=== PATIENT | female | born 1960 | race Caucasian/White ===

== ENCOUNTER 2025-04-10 10:24 | Observation (INO) | payer MEDICARE, SELFPAY ==
--- NOTE | 2025-04-02 12:04 | EKG12_ITS ---
Test Reason : PREOP Blood Pressure : */* mmHG Vent. Rate : 97 BPM Atrial Rate : 97 BPM P-R Int : 144 ms QRS Dur : 66 ms QT Int : 342 ms P-R-T Axes : 62 6 69 degrees QTcB Int : 434 ms Sinus rhythm with Possible Premature atrial complexes with Aberrant conduction Otherwise normal ECG Confirmed by Lg Buckley ([id number]), medical editor MONA QUIÑONEZ ([id number]) on 04/08/2025 12:52:18 PM Referred By: Be Macias Confirmed By: Lg Buckley
[2025-04-02 13:21] LABS: Absolute Neutrophil Count 4.2 X10^3/uL (2.0-7.7); Basophil# 0.02 X10^3/uL; Basophil% 0.3 % (0-1); Eosinophils% 1.5 % (0-5); Hemoglobin 14.8 g/dL (12.0-15.0); Lymphocyte % 24.5 % (19-41); Mean Corp Hgb Conc 32.2 g/dL (32-36); Mean Corpuscular Hgb 29.3 pg (27.0-32.0); Mean Corpuscular Volume 91.1 fL (81-99); Mean Platelet Vol. 9.3 fl (6.2-12.0); Monocyte% 9.2 % (0-10); NRBC Flagged by Analyzer 0 % (0-5); Neutrophil # 4.15 X10^3/uL (2.7-7.7); Neutrophil % 63.4 % (47-70); Platelet Count 412 K/mm3 (150-450); RBC Distribution Width CV 13.1 % (11.6-14.6); RBC Distribution Width SD 42.6 fl (35.1-43.9); Red Blood Count 5.05 M/mm3 (4.2-5.4); White Blood Count 6.5 K/mm3 (4.4-11.0)
[2025-04-02 13:50] LABS: Magnesium 2.3 mg/dL (1.5-2.2)
[2025-04-02 13:57] LABS: Hepatitis B Surface Antibody Nonreactive
[2025-04-02 14:10] LABS: Anion Gap 13 (5-15); BUN 15 mg/dL (4-19); Calcium,Total 9.6 mg/dL (7.6-11.0); Carbon Dioxide 22.2 mmol/L (21.0-32.0); Chloride 104 mmol/L (98-108); Creatinine, Serum 0.99 mg/dL (0.70-1.20); EST Glomerular Filtration Rate 63 (>60); Glucose 88 mg/dL (70-99); HIV Nonreactive (Nonreactive); Hepatitis C Antibody Nonreactive (Nonreactive); Potassium 5.1 mmol/L (3.3-5.1); Sodium Level 139 mmol/L (133-145)
--- NOTE | 2025-04-02 18:45 | PAT.ANE_ITS ---
Pre-Assessment Diagnosis/Proposed Procedure Planned Operative Procedure(s): ANTERIOR CERVICAL DISC FUSION C3-4 C4-5 C5-6 Anesthesia History Anesthesia History - finance associate: Anesthesia History - finance associate Hx Hospitalization No 04/02/25 08:31 Any Problems With Anesthesia Yes: SLOW TO AWAKEN 04/02/25 08:31 Cholinesterase deficiency No 04/02/25 08:31 You/Your Family Experience No 04/02/25 08:31 fever (hyperthermia) with Relationship Recent Exposure to Contagious Disease Does patient have nerve No 04/02/25 08:31 stimulator Patient instructed to have device shut off --Does patient have Pacemaker or ICD? When Was Last Pacemaker Check QUESTION #4 FULL TEXT: You/Your Family Experience fever (hyperthermia) with Anesthesia Last Oral Intake Last Oral intake: Last Oral Intake NPO since Meds taken in AM with sips of water? Meds patient instructed to take am of surgery PONV PONV - finance associate: PONV - finance associate Female Yes 04/02/25 08:31 HX of Motion Sickness No 04/02/25 08:31 HX of N/V After Surgery No 04/02/25 08:31 Non-Smoker Yes 04/02/25 08:31 Duration of Surgery greater Yes 04/02/25 08:31 than 60 minutes Number of Risk Factors 3 04/02/25 08:31 PONV Score Moderate Risk 04/02/25 08:31 Height & Weight Height & Weight: Anesthesia: Height & Weight Height 5 ft 7 in 01/10/25 09:09 Respiratory Assessment Respiratory Assessment - finance associate: Respiratory Tract Infection Hx - finance associate Hx Respiratory Tract Infection No 04/02/25 08:31 STOP Sleep Apnea STOP Sleep Apnea - finance associate: STOP Sleep Apnea - finance associate Hx Hypertension No 04/02/25 08:31 Hx Sleep Apnea Yes: COMPLEX SLEEP APNEA 04/02/25 08:31 CPAP Yes: JUST TESTED NO MACHINE 04/02/25 08:31 YET BIPAP No 04/02/25 08:31 Do you snore loudly (louder than talking or can be heard Do you often feel tired/ fatigued/ sleepy during daytime? Has anyone observed you stop breathing during sleep? STOP Results Positive 04/02/25 08:31 QUESTION #5 FULL TEXT : Do you snore loudly (louder than talking or can be heard through closed doors)? Tobacco Use History Tobacco Use History - finance associate: Tobacco Use History - finance associate Tobacco Use Smoking Status Former smoker 04/02/25 08:31 Hx Tobacco Use No 04/02/25 08:31 Years Smoking Packs Smoked per Day Smoking Cessation Date was No - quit smoking greater 04/02/25 08:31 within the last 15 years than 15 years ago Hx Smoking Cessation Date 04/30/08 04/02/25 08:31 Hx Smoking Cessation No 04/02/25 08:31 Counseling Hematologic Medial History Hematologic Hx - finance associate: Hematologic Medical Hx - foot orthopedist Hx of Blood Transfusion No 04/02/25 08:31 Hx of Transfusion in last 3 No 04/02/25 08:31 Months Date of Last Transfusion (if within last 3 months) Ever experience any problems No 04/02/25 08:31 with transfusion(s)? Specify any problems Hx of Preganancy in last 3 No 04/02/25 08:31 Months Nurse Filling Out Transfusion DSCHRIBER 04/02/25 08:31 & Questions: Date: 04/02/25 04/02/25 08:31 Time: 08:34 04/02/25 08:31 Patient unable to answer at this time (ie. confused, unrespo /Reproduction History /Reproductive History - finance associate: /Reproductive Hx- finance associate Hx Now No 04/02/25 08:31 Gestational Age (in weeks): EDC: Hx Hx Para Hx Section SAB No 04/02/25 08:31 PFSH Medical History Wears glasses Post-menopausal Bladder disease Restless legs Back pain Migraine headache Syncope History of ulceration Heartburn Former smoker CPAP (continuous positive airway pressure) dependence History of pain when walking History of edema Chest pain Home Medications ?Medication ?Instructions ?Recorded ?Last Taken ?Type fexofenadine 60 mg-pseudoephedrine 1 tab PO Q12H PRN s inus symptoms 01/10/25 Unknown History ER 120 mg tablet,ext.release,12 hr ([facility]-D 12 Hour) multivitamin 1 tab PO QAM 01/10/25 Unknow n History acetaminophen 500 mg tablet 1,500 mg PO Q6H PRN pain 0 04/02/25 Unknown History (Acetaminophen Extra Strength) cyclobenzaprine 10 mg tablet 10 mg PO TID PRN PRN musc le spasm 04/02/25 Unknown History meloxicam 7.5 mg tablet 7.5 mg PO DAILY 04/02/25 Unk nown History Allergy/AdvReac Type Severity Reaction Status Date / Time Penicillins Allergy Rash Verified 04/02/25 13:35 Surgical History Hx of colonoscopy Hx of bladder repair surgery History of lumbar discectomy History of cholecystectomy Social History household members: spouse Smoking Status: Former smoker alcohol intake: current alcohol intake frequency: a few times a week what type of physical activity do you participate in: other details: pickleball 4x week Audit: Pertinent Findings Pertinent Findings EKG Perinent findings: 04/02/2025. Sinus rhythm with possible PAC with aberrant conduction. Otherwise normal EKG. Recommendation Anesthesia Recommendation Anesthesia recommendation: OPTIMIZED for anesthesia
[2025-04-04 05:07] LABS: Hepatitis A AB, Total Negative (Negative)
[2025-04-10] VITALS (19 sets, daily range): BP systolic 120–155; BP diastolic 52–84; PULSE 72–91; RESP 16–18; TEMP 36.1–36.8; O2SAT 93–100; BMI 23.8
--- OUTSIDE RECORDS SUMMARY | 2025-04-10 05:47 | XMS RPT_ITS | CCD ---
Author Organization [facility] [place] Team Providers Care Slot Machine Floor Person Name Role Phone Furness, Sergio T Unavailable Unavailable Furness, Sergio T Unavailable Unavailable Furness, Sergio T Unavailable Unavailable Furness, Sergio T Unavailable Unavailable Furness, Sergio T Unavailable Unavailable Furness, Sergio T Unavailable Unavailable Furness, Sergio T Unavailable Unavailable Furness, Sergio T Unavailable Unavailable Furness, Sergio T Unavailable Unavailable Furness, Sergio T Unavailable Unavailable Furness, Sergio T Unavailable Yosef, Sergio T Primary Care Provider Sergio Navas MD Primary Care Provider [phone] SARA NAVARRETE Referring Unavailable FURNESS, SERGIO T Primary Care Unavailable SARA NAVARRETE Referring Unavailable FURNESS, SERGIO T Primary Care Unavailable SARA NAVARRETE Attending Unavailable FURNESS, SERGIO T Primary Care Unavailable Furness Sergio EASON Primary Care Provider [phone] Sergio Navas MD Unavailable Sergio Navas MD Unavailable Nicola Mark MD Primary Care Provider Nicola Mark MD Primary Care Provider Unavailable Primary Care Provider Sergio Akins MD Unavailable Nicola Mark MD Primary Care Provider Nicola Mark MD Primary Care Provider Luisa MEDICAL RECEPTION SPECIALIST-PACKAGING SALES CONSULTANT, Sunitha D Unavailable NICOLA MARK Primary Care Unavailable NICOLA MARK Referring Unavailable NICOLA MARK Primary Care Unavailable YEATER, NICOLA M Referring Unavailable YEATER, NICOLA M Primary Care Unavailable Yeater Nicola EASON Primary Care Provider Luisa MEDICAL RECEPTION SPECIALIST-PACKAGING SALES CONSULTANT, Sunitha D Unavailable LUISA, SUNITHA D Referring Unavailable YEATER, NICOLA M Primary Care Unavailable LUISA, SUNITHA D Attending Unavailable LUISA, SUNITHA D Referring Unavailable YEATER, NICOLA M Primary Care Unavailable LUISA, SUNITHA D Attending Unavailable YEATER, NICOLA M Referring Unavailable LUISA, SUNITHA D Attending Unavailable YEATER, NICOLA M Primary Care Unavailable YEATER, NICOLA M Referring Unavailable LUISA, SUNITHA D Attending Unavailable YEATER, NICOLA M Primary Care Unavailable YEATER, NICOLA M Referring Unavailable YEATER, NICOLA M Primary Care Unavailable YVES PAYAN Attending Unavailable YEATER, NICOLA M Referring Unavailable YEATER, NICOLA M Primary Care Unavailable NICKOLAS CHOE Attending Unavailable YEATER, NICOLA M Referring Unavailable YEATER, NICOLA M Primary Care Unavailable YEATER, NICOLA M Referring Unavailable YEATER, NICOLA M Primary Care Unavailable YEATER, NICOLA M Primary Care Unavailable JASON BONILLA Attending Unavailable JASON BONILLA Referring Unavailable YEATER, NICOLA M Primary Care Unavailable ARGENIS OTOOLE Attending Unavailable YEATER, NICOLA M Referring Unavailable YEATER, NICOLA M Primary Care Unavailable TOÑITONICKOLAS Referring Unavailable YEATER, NICOLA M Primary Care Unavailable YEATER, NICOLA M Referring Unavailable YEATER, NICOLA M Primary Care Unavailable YEATER, NICOLA M Referring Unavailable YEATER, NICOLA M Primary Care Unavailable NICKOLAS CHOE Attending Unavailable YEATER, NICOLA M Primary Care Unavailable LUIS ANDRADE Attending Unavailable TOÑITO, NICKOLAS M Referring Unavailable YEATER, NICOLA M Primary Care Unavailable NICKOLAS CHOE Attending Unavailable YEATER, NICOLA M Primary Care Unavailable YEATER, NICOLA M Referring Unavailable YEATER, NICOLA M Primary Care Unavailable Gilberto EASON, Dr. Lr Attending Provider Dr. Benjamin Lombardi MD Attending Provider Nathalie EASON, Dr. Nicola Natarajan Primary Care Provider Dr. Nicola Mark MD Referring Provider ANTONI MARKA M Attending Unavailable YEATER, NICOLA M Primary Care Unavailable YEATER, NICOLA M Attending Unavailable YEATER, NICOLA M Primary Care Unavailable YEATER, NICOLA M Attending Unavailable YEATER, NICOLA M Primary Care Unavailable YEATER, NICOLA M Attending Unavailable YEATER, NICOLA M Primary Care Unavailable Sergio Navas MD Unavailable Macias, Be Attending Unavailable Nathalie, Nicola M Referring Unavailable Yejorge, Nicola M Primary Care Unavailable Macias, Be Attending Unavailable Yeater, Nicola M Primary Care Unavailable Macias, Be Referring Unavailable Lg Buckley Attending Unavailable Macias, Be Referring Unavailable Macias, Be Attending Unavailable Yeater, Nicola M Primary Care Unavailable Benjamin Lombardi Attending Unavailable Allergies Allergy Classification Reported Allergen(s) Allergy Type Date of Onset Reaction(s) Facility Penicillins (antibiotic) (2 sources) Penicillins; Translations: [Penicillins] Drug [facility] Work Phone: (1 source) buPROPion; Translations: [Wellbutrin XL] Drug Allergy [facility] Repository (20 sources) Penicillins; Translations: [penicillins] Propensity to adverse reactions to drug (disorder) 1 Hives, Rash [facility] Repository (1 source) No Known Medication Allergies; Translations: [No Known Medication Allergies] Propensity to adverse reactions to drug (disorder) [facility] Repository (20 sources) buPROPion; Translations: [BUPROPION] Drug Allergy [facility] Medications Current Medications Medication Drug Class(es) Dates Sig (Normalized) Sig (Original) acetaminophen 500 mg oral tablet (5 sources) Start: 04-02-2025 take 3 tablets by mouth every six hours as needed for pain Acetaminophen (Acetaminophen Extra Strength) 500 mg tablet Active 1500 mg PO EVERY 6 HOURS as needed for pain April 02, 2025 12:00am Start: 07-21-2021 take 2 tablets by mo ut every six hours as needed acetaminophen (TYLENOL EXTRA STRENGTH) 500 mg tablet Take 2 tablets by mouth every 6 hours as needed for pain. 30 tablet 0 07/21/2021 Active Comment on above: Take 2 tablets by mo uth every 6 hours as needed for pain. azelastine hydrochloride 0.137 mg/actuat metered dose nasal spray (9 sources) Histamine-1 Receptor Antagonist Start: End: take 1 spray(s) nasal route twice daily azelastine (Astelin) 137 mcg (0.1 %) nasal spray Indications: Nasal congestion Administer 1 spray into each nostril 2 times a day. Use in each nostril as directed 30 mL 12 12/27/2024 12/27/2025 Active Start: 12-27-2024 End: 12-27-2025 azelastine 0.1 % Solution na lisa spray 1 spray Twice daily. 12/27/2024 12/27/2025 Active cyclobenzaprine hydrochloride 10 mg oral tablet (2 sources) Muscle Relaxant Start: 01-11-2025 take 1 tablet by mouth three times daily as needed for muscle spasms Cyclobenzaprine 10 mg tablet Active 10 mg PO 3 TIMES DAILY NEEDED as needed for muscle spasm April 02, 2025 12:00am 12 hr fexofenadine hydrochloride 60 mg / pseudoephedrine hydrochloride 120 mg extended release oral tablet (20 sources) alpha-Adrenergic Agonist, Histamine-1 Receptor Antagonist Start: 01-10-2025 take 1 tablet by mouth every twelve hours as needed Fexofenadine-Pseudoe phedrine (Leelee-D 12 Hour) 60-120 mg tablet extended release 12 hr Active 1 {tbl} PO Q12H as needed for sinus symptoms January 10, 2025 1:00am Start: 12-01-2016 take 1 tablet by [place] th once fexofenadine-pseudoephedrine (LEELEE D) 60-120 mg per tablet Take 1 tablet by mouth. 0 12/01/2016 Active take 1 tablet by [place] th once fexofenadine-pseudoephedrine (Leelee-D 24) 180-240 mg 24 hr tablet Take 1 tablet by mouth if needed for allergies. Do not crush, chew, or split. Active take 180-240 mg by mouth every twenty-four hours fexofenadine-pseudoephedrine 180-240 MG Tab SR 24 HR Take 1 tablet by mouth. Active Comment on above: Take 1 tablet by [place] th. meloxicam 7.5 mg oral tablet (1 source) Nonsteroidal Anti-inflammatory Drug Start: 04-02-20 take 1 tablet by mouth once daily Meloxicam 7.5 mg tablet Active 7.5 mg PO DAILY April 02, 2025 12:00am Multivitamin tablet (1 source) Start: 01-11-20 Multivitamin tablet Active 1 {tbl} PO EVERY MORNING January 10, 2025 1:00am valACYclovir 1000 mg oral tablet (4 sources) Herpesvirus Nucleoside Analog DNA Polymerase Inhibitor, Herpes Simplex Virus Nucleoside Analog DNA Polymerase Inhibitor, Herpes Zoster Virus Nucleoside Analog DNA Polymerase Inhibitor Start: 05-26-20 End: 05-26-20 take 2 tablets by mouth once daily valACYclovir (VALTREX) 1 gram Indications: Oral herpes TAKE 2 TABLETS BY MOUTH ONCE DAILY AND THEN TAKE 2 TABLETS BY MOUTH 12 HOURS AFTER INITIAL DOSE 30 tablet 2 05/26/2021 05/26/2022 Active Comment on above: TAKE 2 TABLETS BY MO UTH ONCE DAILY AND THEN TAKE 2 TABLETS BY MOUTH 12 HOURS AFTER INITIAL DOSE 24 hr venlafaxine 75 mg extended release oral capsule (17 sources) Serotonin and Norepinephrine Reuptake Inhibitor Start: 06-19-20 End: 09-25-20 take 1 capsule by mouth once daily venlafaxine XR (Effexor-XR) 37.5 mg 24 hr capsule Indications: Sweating abnormality Take 1 capsule (37.5 mg) by mouth once daily. Do not crush or chew. 14 capsule 06/19/2024 09/25/2024 Discontinued (Med List Cleanup) Start: 06-19-2024 End: 09-25-2024 take 1 capsule by mouth once daily at mealtime venlafaxine XR (Effexor-XR) 75 mg 24 hr capsule Indications: Sweating abnormality Take 1 capsule (75 mg) by mouth once daily. Take with food. 14 capsule 06/19/2024 09/25/2024 Discontinued (Med List Cleanup) Start: 08-12-2023 End: 11-11-2024 take 1 capsule by mouth once daily venlafaxine XR (Effexor-XR) 150 mg 24 hr capsule Take 1 capsule (150 mg) by mouth once daily. 08/19/2023 06/19/2024 Discontinued (Med List Cleanup) Start: 03-08-2023 End: 04-10-2023 take 1 capsule by mouth once daily venlafaxine ER (EFFEXOR XR) 150 mg 24 hr capsule Indications: Hot flashes, menopausal Take 1 capsule by mouth once daily. 30 capsule 0 04/11/2023 Active Start: 05-26-2021 take 1 capsule by [facility] once daily venlafaxine ER (EFFEXOR XR) 150 mg 24 hr capsule Indications: Hot flashes, menopausal Take 1 capsule by mouth once daily. 90 capsule 3 05/26/2021 Active Comment on above: Take 1 capsule by [facility] once daily. Completed/Discontinued Medications Medication Drug Class(es) Dates Sig (Normalized) Sig (Original) aluminum hydroxide 40 mg/ml / magnesium hydroxide 40 mg/ml / simethicone 4 mg/ml oral suspension (1 source) Start: 10-09-2024 End: 10-09-2024 take 30 mL by mouth once 30 mL, oral, Once, On Tue10/09/24 at 1735, For 1 dose cholecalciferol 0.125 mg chewable tablet (20 sources) Vitamin D Start: 05-29-2021 Vitamin D3 125 MCG (5000 UT) Oral Tablet Chewable Quantity: 0 Refills: 0 Ordered: 29-May-2021 Sergio Navas MD Start : 29-May-2021 Active Start: 11-13-2013 take 1 capsule by [facility] once daily, then take 1 capsule by mouth once daily Cholecalciferol, Vitamin D3, 2,000 unit cap Indications: Symptomatic states associated with artificial menopause Take 1 capsule by mouth once daily. one po daily 90 capsule 4 11/13/2013 [facility] cholecalciferol (Vitamin D3) 5,000 Units tablet Take 1 tablet (5,000 Units) by mouth once daily. Active Comment on above: Take 1 capsule by [facility] once daily. one po daily CYANOCOBALAMIN, VITAMIN B-12, (VITAMIN B-12 ORAL) (5 sources) CYANOCOBALAMIN, VITAMIN B-12, (VITAMIN B-12 ORAL) Take by mouth. 0 Active Comment on above: Take by mouth. 1 ml erenumab-aooe 140 mg/ml auto-injector (4 sources) Start: 1 End: 3 inject 1 mL by subcutaneous injection once erenumab (Aimovig Autoinjector) 140 mg/mL injection Inject 1 mL (140 mg) under the skin every 28 (twenty-eight) days. 0 05/29/2021 09/16/2023 Discontinued (Therapy completed) Estradiol / Estriol (4 sources) Estrogen Start: 1 End: 3 estradiol 0.01% estriol 0.01% topical cream (CPD) Apply 0.5g (2 clicks) vaginally and 0.5g (2 clicks) around the vaginal opening 3 times weekly. 33 g 3 10/16/2021 08/19/2023 Discontinued Start: 10-16-2021 estradiol 0.01 % estriol 0.01% topical cream (CPD) Apply 0.5g (2 clicks) vaginally and 0.5g (2 clicks) around the vaginal opening 3 times weekly. 33 g 3 10/16/2021 Active Start: 06-30-2021 End: 08-19-2023 estradiol 0.01% estriol 0.01 % topical cream (CPD) Insert 0.5g (2 clicks) vaginally every night at bedtime for two weeks, then twice weekly thereafter. 30 g 3 06/30/2021 08/19/2023 Discontinued Start: 06-30-2021 estradiol 0.01 % estriol 0.01% topical cream (CPD) Insert 0.5g (2 clicks) vaginally every night at bedtime for two weeks, then twice weekly thereafter. 30 g 3 06/30/2021 Active Comment on above: Insert 0.5g (2 click s) vaginally every night at bedtime for two weeks, then twice weekly thereafter. Apply 0.5g (2 clicks ) vaginally and 0.5g (2 clicks) around the vaginal opening 3 times weekly. estrogens, conjugated (half-way) 0.625 mg/ml vaginal cream (2 sources) Estrogen Start: 1 End: 3 conjugated estrogens (PREMARIN) vaginal cream Indications: atrophic vaginitis associated with menopause Use 1 g vaginally two times a week. Use 1g vaginally every night for two weeks and then twice weekly after that 30 g 2 06/26/2021 08/19/2023 Discontinued Comment on above: Use 1 g vaginally tw o times a week. Use 1g vaginally every night for two weeks and then twice weekly after that fluticasone propionate 0.05 mg/actuat metered dose nasal spray (4 sources) Corticosteroid Start: End: 3 take 1 spray(s) nasal route twice daily fluticasone (Flonase) 50 mcg/actuation nasal spray Administer 1 spray into each nostril 2 times a day. 0 11/26/2020 09/16/2023 Discontinued (Therapy completed) Start: 11-26-2020 take 1 spray(s) nasa l route twice daily Fluticasone Propionate 50 MCG/ACT Nasal Suspension Inhale 1 spray in each nostril 2 times daily until directed to stop Quantity: 16 Refills: 0 Ordered: 26-Nov-2020 DO Start : 26-Nov-2020 Active gabapentin 300 mg oral capsule (9 sources) Anti-epileptic Agent Start: 10-02-2024 End: 12-27-2024 take 1 capsule by mouth three times daily gabapentin (Neurontin) 300 mg capsule Indications: Cervical radiculopathy Take 1 capsule (300 mg) by mouth 3 times a day. 90 capsule 2 10/02/2024 12/27/2024 Discontinued (Med List Cleanup) ibuprofen 600 mg oral tablet (20 sources) Nonsteroidal Anti-inflammatory Drug Start: 07-21-2021 take 1 tablet by mouth every six hours as needed ibuprofen (MOTRIN) 600 mg tablet Take 1 tablet by mouth every 6 hours as needed for pain. 30 tablet 0 07/21/2021 Active take 2 tablets by mo [facility] every six hours as needed ibuprofen 200 mg tablet Take 2 tablets (400 mg) by mouth every 6 hours if needed for mild pain (1 - 3). Dual action Active Comment on above: Take 1 tablet by [place] every 6 hours as needed for pain. iohexol (OMNIPaque) 300 mg iodine/mL solution 3 mL (1 source) Start: 11-16-2024 End: 11-16-2024 3 mL, miscellaneous, Once in OR, Starting on Tue11/16/24 at 1430, For 1 dose, Intraprocedure 10 ml lidocaine hydrochloride 20 mg/ml injection (2 sources) Antiarrhythmic, Amide Local Anesthetic Start: 11-16-2024 End: 11-16-2024 120 mg (6 mL), infiltration, Once, On Tue11/16/24 at 1445, For 1 dose, Intraprocedure Start: 10-09-2024 End: 10-09-2024 take 15 mL by mouth once 15 mL, oral, Once, On Tue at 1735, For 1 dose magnesium chloride 535 mg delayed release oral tablet (14 sources) End: 04-08-2025 magnesium chloride (MagDelay) 64 mg EC tablet 1 tablet (64 mg) once daily. 04/08/2025 Discontinued (Med List Cleanup) methylPREDNISolone (4 sources) Corticosteroid Start: 12-10-2024 End: 12-27-2024 methylPREDNISolone (Medrol Dospak) 4 mg tablets Indications: Foraminal stenosis of cervical region , Cervical radiculopathy Follow schedule on package instructions 21 tablet 12/10/2024 12/27/2024 Discontinued (Med List Cleanup) Start: 12-10-2024 methylPREDNISo lone (Medrol Dospak) 4 mg tablets Indications: Foraminal stenosis of cervical region , Cervical radiculopathy Follow schedule on package instructions 21 tablet 12/10/2024 Active Start: 11-16-2024 End: 11-16-2024 As needed, Starting on Tue at 1341, Intraprocedure naproxen sodium 220 mg oral capsule (5 sources) Nonsteroidal Anti-inflammatory Drug naproxen sodium (ALEVE) 220 mg cap Take by mouth. 0 Active Comment on above: Take by mouth. SUMAtriptan 100 mg oral tablet (3 sources) Serotonin-1b and Serotonin-1d Receptor Agonist Start: 08-01-2018 End: 08-19-2023 SUMAtriptan (IMITREX) 100 mg tablet Take 1 tab at migraine onset. May repeat once in 2 hours if needed. Give max allowed per insurance. 27 tablet 3 08/01/2018 08/19/2023 Discontinued Comment on above: Take 1 tab at migrai ne onset. May repeat once in 2 hours if needed. Give max allowed per insurance. vitamin b12 3 mg sublingual tablet (20 sources) Vitamin B12 Start: 05-29-2021 Vitamin B12 3000 MCG Sublingual Tablet Sublingual Quantity: 0 Refills: 0 Ordered: 29-May-2021 Sergio Navas MD Start : 29-May-2021 Active End: 04-08-2025 take 1 tablet by mouth once daily cyanocobalamin (Vitamin B-12) 100 mcg tablet Take 1 tablet (100 mcg) by mouth once daily. 04/08/2025 Discontinued (Med List Cleanup) ZOLMitriptan 2.5 mg oral tablet (5 sources) Serotonin-1b and Serotonin-1d Receptor Agonist Start: 02-20-2020 ZOLMitriptan (ZOMIG) 2.5 mg tablet Take 1 tab at migraine onset. May repeat once in 2 hours if needed. Give max allowed per insurance. 27 tablet 3 02/20/2020 Active Comment on above: Take 1 tab at migrai ne onset. May repeat once in 2 hours if needed. Give max allowed per insurance. Problems Active Problems Problem Classification Problem Date Documented Date Episodic/Chronic Adjustment disorders (1 source) Reactive depression (situational); Translations: [Adjustment disorder with depressed mood] 08-19-2023 Chronic Administrative/social admission (5 sources) Administrative reason for encounter; Translations: [Encounter for other administrative examinations] Onset: 03-07-2025 03-07-2025 Episodic Disorders of lipid metabolism (8 sources) Hyperlipidemia; Translations: [Hyperlipidemia, unspecified] Onset: 04-08-2025 11-19-2013 Chronic Headache; including migraine (20 sources) Migraine; Translations: [Migraine, unspecified, without mention of intractable migraine without mention of status migrainosus] Onset: 05-28-2016 Resolved: 01-19-2024 11-19-2013 Chronic Headache; including migraine (4 sources) Headache; including migraine; Translations: [Headache, unspecified] Onset: 03-02-2025 Malaise and fatigue (11 sources) Fatigue; Translations: [Other fatigue] Onset: 03-02-2025 09-16-2023 Episodic Menopausal disorders (2 sources) Menopausal flushing; Translations: [Menopausal and female climacteric states] Chronic Menopausal disorders (6 sources) Postmenopausal state; Translations: [Hormone replacement therapy] 11-19-2013 Episodic Miscellaneous mental health disorders (20 sources) Lack or loss of sexual desire; Translations: [Hypoactive sexual desire disorder] Onset: 09-07-2023 Resolved: 01-19-2024 11-19-2013 Chronic Other acquired deformities (2 sources) Stenosis of intervertebral foramina 12-10-2024 Episodic Other acquired deformities (2 sources) Spondylolisthesis; Translations: [Spondylolisthesis, cervical region] 01-10-2025 Episodic Other lower respiratory disease (2 sources) Hypoxia 01-03-2025 Episodic Other lower respiratory disease (8 sources) Snoring; Translations: [Snoring] Onset: 03-02-2025 01-03-2025 Episodic Other lower respiratory disease (2 sources) Snoring; Translations: [Snoring] Onset: 03-02-2025 Episodic Other nutritional; endocrine; and metabolic disorders (5 sources) Weight gain; Translations: [Abnormal weight gain] 11-19-2013 Episodic Other screening for suspected conditions (not mental disorders or infectious disease) (20 sources) Patient encounter status; Translations: [Special screening for malignant neoplasms of colon] Onset: 11-12-2013 11-12-2013 Episodic Residual codes; unclassified (20 sources) Obstructive sleep apnea syndrome; Translations: [Obstructive sleep apnea (adult) (pediatric)] Onset: 01-19-2024 09-16-2023 Chronic Residual codes; unclassified (8 sources) Hypersomnia; Translations: [Hypersomnia, unspecified] Onset: 03-02-2025 01-03-2025 Chronic Residual codes; unclassified (4 sources) Hypoxia; Translations: [Idiopathic sleep related nonobstructive alveolar hypoventilation] 01-03-2025 Chronic Residual codes; unclassified (4 sources) Unrefreshed by sleep; Translations: [Other sleep disorders] 01-03-2025 Chronic Residual codes; unclassified (6 sources) Obstructive sleep apnea (adult) (pediatric); Translations: [Obstructive sleep apnea (adult) (pediatric)] Onset: 01-19-2024 Chronic Residual codes; unclassified (4 sources) Idiopathic sleep related nonobstructive alveolar hypoventilation; Translations: [Idiopathic sleep related nonobstructive alveolar hypoventilation] Onset: 03-02-2025 Chronic Residual codes; unclassified (2 sources) Hypersomnia, unspecified; Translations: [Hypersomnia, unspecified] Onset: 03-02-2025 Chronic Residual codes; unclassified (4 sources) Other sleep disorders; Translations: [Other sleep disorders] Onset: 03-02-2025 Chronic Residual codes; unclassified (5 sources) Family history of malignant neoplasm of breast in first degree relative; Translations: [Family history of malignant neoplasm of breast] 11-19-2013 Episodic Residual codes; unclassified (11 sources) Insomnia; Translations: [Insomnia, unspecified] 11-02-2021 Episodic Residual codes; unclassified (1 source) Other specified personal risk factors, not elsewhere classified; Translations: [Encounter for gynecologic examination for high-risk patient covered by Medicare] Onset: 08-23-2023 Episodic Residual codes; unclassified (1 source) Asymptomatic menopausal state; Translations: [Asymptomatic postmenopausal state] Onset: 08-23-2023 Episodic Residual codes; unclassified (2 sources) Unrefreshed by sleep 01-03-2025 Episodic Residual codes; unclassified (4 sources) Insomnia, unspecified; Translations: [Insomnia, unspecified] Onset: 03-02-2025 Episodic Screening and history of mental health and substance abuse codes (5 sources) Tobacco use and exposure - finding; Translations: [Personal history of nicotine dependence] 11-19-2013 Episodic Spondylosis; intervertebral disc disorders; other back problems (17 sources) Arthropathy of cervical spine facet joint; Translations: [Spondylosis without myelopathy or radiculopathy, cervical region] Onset: 10-02-2024 10-02-2024 Chronic Spondylosis; intervertebral disc disorders; other back problems (20 sources) Low back pain; Translations: [Lumbago] Onset: 05-28-2016 Resolved: 01-19-2024 11-19-2013 Episodic Unclassified (1 source) Dense breast tissue; Translations: [Dense breast tissue] Onset: 08-23-2023 Unclassified (2 sources) Patient encounter status 12-27-2024 Past or Other Problems Problem Classification Problem Date Documented Date Episodic/Chronic Complications of surgical procedures or medical care (20 sources) Menopausal symptom; Translations: [Symptomatic postprocedural ovarian failure] Onset: 11-12-19 14 Resolved : 01-19-2011-12-2013 Chronic Diverticulosis and diverticulitis (20 sources) Diverticular disease; Translations: [Diverticulosis of intestine, part unspecified, without perforation or abscess without bleeding] Onset: 09-07-20 23 Resolved : 04-08-2011-19-2013 Chronic Headache; including migraine (20 sources) Chronic daily headache; Translations: [Chronic daily headache] Onset: 05-28-20 16 Resolved : 01-19-20 24 05-28-2016 Episodic Immunizations and screening for infectious disease (3 sources) Requires tetanus and diphtheria vaccination; Translations: [Encounter for immunization] Onset: 06-19-2006-19-2024 Episodic Nonmalignant breast conditions (20 sources) Hypertrophy of breast; Translations: [Hypertrophy of breast] Onset: 02-21-20 Resolved : 01-19-2002-20-2018 Episodic Nonspecific chest pain (3 sources) Chest pain; Translations: [Chest pain, unspecified] Onset: 10-09-2010-09-2024 Episodic Nutritional deficiencies (20 sources) Vitamin D deficiency; Translations: [Vitamin D deficiency, unspecified] Onset: 09-07-20 Resolved : 01-19-2011-20-2013 Chronic Other nervous system disorders (3 sources) Skin sensation disturbance; Translations: [Other disturbances of skin sensation] Onset: 06-19-2006-19-2024 Episodic Other nervous system disorders (2 sources) Other disturbances of skin sensation; Translations: [Other disturbances of skin sensation] Onset: 06-19-20 Episodic Other nutritional; endocrine; and metabolic disorders (20 sources) Abnormal weight gain; Translations: [Abnormal weight gain] Onset: 11-12-19 Resolved : 01-19-2011-12-2013 Episodic Other skin disorders (1 source) Disorder of sweat gland; Translations: [Eccrine sweat disorder, unspecified] 06-19-2024 Episodic Other skin disorders (4 sources) Eccrine sweat disorder, unspecified; Translations: [Eccrine sweat disorder, unspecified] Onset: 06-19-20 Episodic Other upper respiratory disease (2 sources) Nasal congestion; Translations: [Nasal congestion] Onset: 12-27-1912-27-2024 Episodic Other upper respiratory disease (1 source) Nasal congestion; Translations: [Nasal congestion] Onset: 12-27-19 Episodic Prolapse of female genital organs (20 sources) Disorder of rectum; Translations: [Rectocele] Onset: 09-07-20 Resolved : 01-19-2011-19-2013 Chronic Residual codes; unclassified (20 sources) Heterozygous methylenetetrahydrofolate reductase mutation; Translations: [Genetic susceptibility to other disease] Onset: 09-07-20 Resolved : 01-19-2011-23-2013 Episodic Unclassified (17 sources) Onset: 09-16-20 Resolved : 04-08-20 25 09-16-2023 Results Test Name Value Interpretation Reference Range Facility Hepatitis A AB, Totalon 05-2 HEPATITIS A,TOT Negative Normal Negative [facility] Comment on above: Result Comment: Comm ent: The HAV total antibody assay detects both IgG and IgM but does not differentiate between them. A negative result suggests susceptibility to infection. A positive result could be due to vaccination, previously resolved infection or active infection. Testing for HAV IgM should be performed if active HAV infection is suspected. [facility] offers profiles that will automatically reflex positive HAV total antibody results to IgM (e.g., panel #[id number] HAV Antibody w/ Rfx). Performed at: [address] [id number] Writer: Hector Warren PhD, Phone: [phone] Performed By: #### L 3890.6202, L500.2500, L100.0100, BTSPAT, M100.651, L3890.6301, L3890.6006, L3100.0300 ####[facility] [id number] [facility] [place], [address] MRSA/SAID NASAL SCREENon MRSA+SAID SCRN Reason for Exam: Josue juan miguel MRSA MRSA Negative S. AUREUS S. aureus Negative Normal [facility] Comment on above: Performed By: #### L 3890.6202, L500.2500, L100.0100, BTSPAT, M100.651, L3890.6301, L3890.6006, L3100.0300 ####[facility] [id number] [facility] [place], [address] 12 Lead EKGon 04-02-2025 12 Lead EKG [facility] [address] [place] [address] 12 Lead EKG 04/02/25 1209 MR#: [id number] Acct: [id number] Name: CHELSIANTONIA Rep #: [id number] : 1960 64 From: Lg Buckley MD Attending Dr: Dr. Be Macias MD [place]: [place] [facility]: Be Macias MD Date: 04/02/25 [place] [facility] [place] Sex: F C Admitted: Test Reason : PREOP Blood Pressure : */* mmHG Vent. Rate : 97 BPM Atrial Rate : 97 BPM P-R Int : 144 ms QRS Dur : 66 ms QT Int : 342 ms P-R-T Axes : 62 6 69 degrees QTcB Int : 434 ms Sinus rhythm with Possible Premature atrial complexes with Aberrant conduction Otherwise normal ECG Confirmed by Lg Buckley ([id number]), supervising film or videotape editor MONA QUIÑONEZ ([id number]) on 04/08/2025 12:52:18 PM Referred By: Be Macias Confirmed By: Lg Buckley 04/08/25 1252 Date Lg Buckley MD CC: Dr. Be Macias MD; Dr. Nicola Mark MD Signed Normal [facility] Basic Metabolic Profile (BMP )on 04-02-2025 BUN/CRE 15.0 RATIO Normal 10-20 [facility] Comment on above: Performed By: #### L 3890.6202, L500.2500, L100.0100, BTSPAT, M100.651, L3890.6301, L3890.6006, L3100.0300 #### [facility] [address] [place], [address] Calcium [Mass/Vol] 9.6 mg/dL Normal 7.6-11.0 [facility] Comment on above: Performed By: #### L 3890.6202, L500.2500, L100.0100, BTSPAT, M100.651, L3890.6301, L3890.6006, L3100.0300 #### [facility] [address] [place], [address] Chloride [Moles/Vol] 104 mmol/L Normal 98-108 [facility] Comment on above: Performed By: #### L 3890.6202, L500.2500, L100.0100, BTSPAT, M100.651, L3890.6301, L3890.6006, L3100.0300 #### [facility] [address] [place], [address] CO2 [Moles/Vol] 22.2 mmol/L Normal 21.0-32.0 [facility] Comment on above: Performed By: #### L 3890.6202, L500.2500, L100.0100, BTSPAT, M100.651, L3890.6301, L3890.6006, L3100.0300 #### [facility] [address] [place], [address] Creatinine [Mass/Vol] 0.99 mg/dL Normal 0.70-1.20 [facility] Comment on above: Performed By: #### L 3890.6202, L500.2500, L100.0100, BTSPAT, M100.651, L3890.6301, L3890.6006, L3100.0300 #### [facility] [address] [place], [address] GAP 13 Normal 5-15 [facility] Comment on above: Performed By: #### L 3890.6202, L500.2500, L100.0100, BTSPAT, M100.651, L3890.6301, L3890.6006, L3100.0300 #### [facility] [address] [place], [address] GFR/1.73 sq M.predicted among non-blacks MDRD (S/P/Bld) [Vol rate/Area] 63 mL/min/{1.73_m2} Normal >60 [facility] Comment on above: Result Comment: mL/m in/1.73m2 CKD-EPI Creatinine Equation (2020) Performed By: #### L 3890.6202, L500.2500, L100.0100, BTSPAT, M100.651, L3890.6301, L3890.6006, L3100.0300 #### [facility] [address] [place], [address] Glucose [Mass/Vol] 88 mg/dL Normal 70-99 [facility] Comment on above: Performed By: #### L 3890.6202, L500.2500, L100.0100, BTSPAT, M100.651, L3890.6301, L3890.6006, L3100.0300 #### [facility] [address] [place], [address] Potassium [Moles/Vol] 5.1 mmol/L Normal 3.3-5.1 [facility] Comment on above: Performed By: #### L 3890.6202, L500.2500, L100.0100, BTSPAT, M100.651, L3890.6301, L3890.6006, L3100.0300 #### [facility] [address] [place], [address] Sodium [Moles/Vol] 139 mmol/L Normal 133-145 [facility] Comment on above: Performed By: #### L 3890.6202, L500.2500, L100.0100, BTSPAT, M100.651, L3890.6301, L3890.6006, L3100.0300 #### [facility] [address] [place], [address] Urea nitrogen [Mass/Vol] 15 mg/dL Normal 4-19 [facility] Comment on above: Performed By: #### L 3890.6202, L500.2500, L100.0100, BTSPAT, M100.651, L3890.6301, L3890.6006, L3100.0300 #### [facility] [address] [place], [address] CBC W/Diff, Automatedon 05-2 Absolute Lymph 1.60 X10 3/uL Normal 0.83-4.51 [facility] Comment on above: Performed By: #### L 3890.6202, L500.2500, L100.0100, BTSPAT, M100.651, L3890.6301, L3890.6006, L3100.0300 #### [facility] [address] [place], [address] Absolute Neut 4.2 X10 3/uL Normal 2.0-7.7 [facility] Comment on above: Performed By: #### L 3890.6202, L500.2500, L100.0100, BTSPAT, M100.651, L3890.6301, L3890.6006, L3100.0300 #### [facility] [address] [place], [address] Basophils/100 WBC (Bld) 0.3 % Normal 0-1 [facility] Comment on above: Performed By: #### L 3890.6202, L500.2500, L100.0100, BTSPAT, M100.651, L3890.6301, L3890.6006, L3100.0300 #### [facility] [address] [place], [address] Eosinophils/100 WBC (Bld) 1.5 % Normal 0-5 [facility] Comment on above: Performed By: #### L 3890.6202, L500.2500, L100.0100, BTSPAT, M100.651, L3890.6301, L3890.6006, L3100.0300 #### [facility] [address] [place], [address] Erythrocyte distribution width (RBC) [Ratio] 13.1 % Normal 11.6-14.6 [facility] Comment on above: Performed By: #### L 3890.6202, L500.2500, L100.0100, BTSPAT, M100.651, L3890.6301, L3890.6006, L3100.0300 #### [facility] [address] [place], [address] Hematocrit (Bld) [Volume fraction] 46.0 % Normal 37-47 [facility] Comment on above: Performed By: #### L 3890.6202, L500.2500, L100.0100, BTSPAT, M100.651, L3890.6301, L3890.6006, L3100.0300 #### [facility] [address] [place], [address] Hemoglobin (Bld) [Mass/Vol] 14.8 g/dL Normal 12.0-15.0 [facility] Comment on above: Performed By: #### L 3890.6202, L500.2500, L100.0100, BTSPAT, M100.651, L3890.6301, L3890.6006, L3100.0300 #### [facility] [address] [place], [address] IG% 1.100 High 0.0-0.9 [facility] Comment on above: Result Comment: IG% - Immature Granulocytes (promyelocytes, myelocytes and metamyelocytes) > 1% indicates that a LEFT SHIFT is Present. Performed By: #### L 3890.6202, L500.2500, L100.0100, BTSPAT, M100.651, L3890.6301, L3890.6006, L3100.0300 #### [facility] [address] [place], [address] Lymphocytes/100 WBC (Bld) 24.5 % Normal 19-41 [facility] Comment on above: Performed By: #### L 3890.6202, L500.2500, L100.0100, BTSPAT, M100.651, L3890.6301, L3890.6006, L3100.0300 #### [facility] [address] [place], [address] MCH (RBC) [Entitic mass] 29.3 pg Normal 27.0-32.0 [facility] Comment on above: Performed By: #### L 3890.6202, L500.2500, L100.0100, BTSPAT, M100.651, L3890.6301, L3890.6006, L3100.0300 #### [facility] [address] [place], [address] MCHC (RBC) [Mass/Vol] 32.2 g/dL Normal 32-36 [facility] Comment on above: Performed By: #### L 3890.6202, L500.2500, L100.0100, BTSPAT, M100.651, L3890.6301, L3890.6006, L3100.0300 #### [facility] [address] [place], [address] MCV (RBC) [Entitic vol] 91.1 fL Normal 81-99 [facility] Comment on above: Performed By: #### L 3890.6202, L500.2500, L100.0100, BTSPAT, M100.651, L3890.6301, L3890.6006, L3100.0300 #### [facility] [address] [place], [address] Monocytes/100 WBC (Bld) 9.2 % Normal 0-10 [facility] Comment on above: Performed By: #### L 3890.6202, L500.2500, L100.0100, BTSPAT, M100.651, L3890.6301, L3890.6006, L3100.0300 #### [facility] [address] [place], [address] Neutrophils/100 WBC (Bld) 63.4 % Normal 47-70 [facility] Comment on above: Performed By: #### L 3890.6202, L500.2500, L100.0100, BTSPAT, M100.651, L3890.6301, L3890.6006, L3100.0300 #### [facility] [address] [place], [address] Nucleated RBC (Bld) [#/Vol] 0 10*3/uL Normal 0-5 [facility] Comment on above: Performed By: #### L 3890.6202, L500.2500, L100.0100, BTSPAT, M100.651, L3890.6301, L3890.6006, L3100.0300 #### [facility] [address] [place], [address] Platelet mean volume (Bld) [Entitic vol] 9.3 fL Normal 6.2-12.0 [facility] Comment on above: Performed By: #### L 3890.6202, L500.2500, L100.0100, BTSPAT, M100.651, L3890.6301, L3890.6006, L3100.0300 #### [facility] [address] [place], [address] Platelets (Bld) [#/Vol] 412 10*3/uL Normal 150-450 [facility] Comment on above: Performed By: #### L 3890.6202, L500.2500, L100.0100, BTSPAT, M100.651, L3890.6301, L3890.6006, L3100.0300 #### [facility] [address] [place], [address] RBC (Bld) [#/Vol] 5.05 10*6/uL Normal 4.2-5.4 [facility] Comment on above: Performed By: #### L 3890.6202, L500.2500, L100.0100, BTSPAT, M100.651, L3890.6301, L3890.6006, L3100.0300 #### [facility] [address] [place], [place], [address] RDW SD 42.6 fl Normal 35.1-43.9 [facility] Comment on above: Performed By: #### L 3890.6202, L500.2500, L100.0100, BTSPAT, M100.651, L3890.6301, L3890.6006, L3100.0300 #### [facility] [address] [place], [address] WBC (Bld) [#/Vol] 6.5 10*3/uL Normal 4.4-11.0 [facility] Comment on above: Performed By: #### L 3890.6202, L500.2500, L100.0100, BTSPAT, M100.651, L3890.6301, L3890.6006, L3100.0300 #### [facility] [address] [place], [address] HIVon 04-02-2025 HIV Non-Reactive Normal Nonreactive [facility] Comment on above: Result Comment: Non- Reactive Reactive Repeatedly reactive samples must be confirmed according to CDC recommended confirmatory algorithms. The subresults for either HIVAG or AHIV can be used as an aid in the selection of the confirmation algorithm for reactive samples. Send out specimens with Reactive results to [facility] for confirmation. Order the HIV antibody detection and differentiation: [id number] Performed By: #### L 3890.6202, L500.2500, L100.0100, BTSPAT, M100.651, L3890.6301, L3890.6006, L3100.0300 #### [facility] [address] [place], [place], [address] Hepatitis B Surface Antibody on 04-02-2025 HEP B Surf Ab Non-Reactive Normal [facility] Comment on above: Result Comment: <8.5 mIU/mL: Non-Reactive 8.5<= x <11.5 mIU/mL: Indeterminate >=11.5 mIU/mL: Reactive Non Reactive: Inconsistent with immunity less than <10 mIU/mL Reactive: Consistent with immunity greater than or equal to 10 mIU/mL Performed By: #### L 3890.6202, L500.2500, L100.0100, BTSPAT, M100.651, L3890.6301, L3890.6006, L3100.0300 #### [facility] [address] [place], [place], [address] Hepatitis C Antibodyon 04-02 Hepatitis C Ab Non-Reactive Normal Nonreactive [facility] Comment on above: Result Comment: Reac tive: Presumptive evidence of antibodies to HCV. Follow CDC recommendations for supplemental testing. Non-Reactive: Antibodies to HCV were not detected; does not exclude the possibility of exposure to HCV Reactive Results are presumptive evidence of antibodies to HCV. Follow CDC recommendations for supplemental testing. Order confirmation testing: HCV Quant by PCR testing - HCVPCR #[id number] Non Reactive: < 0.8 Equivocal: >/= 0.8 to < 1.0 Reactive: >/= 1.0 The CDC requires that a reactive/equivocal HCV antibody result be sent out for confirmation. HCV Quant by PCR testing. Performed By: #### L 3890.6202, L500.2500, L100.0100, BTSPAT, M100.651, L3890.6301, L3890.6006, L3100.0300 ####[facility] [id number] [place], [place], [address] MR/PAT.ANEon 04-02-2025 MR/PAT.[facility] Medical Records Department [address] [place] [address] PAT - Anesthesia 04/02/25 1845 MR#: [id number] Acct: [id number] Name: NICOLA GAGNON Rep #: [id number] : 1960 64 From: Rj Porras MD PCP: Dr. Nicola Mark MD Status:PRE SDC Y Race: C [place] [facility] [place] Pre-Assessment Diagnosis/Proposed Procedure Planned Operative Procedure(s): ANTERIOR CERVICAL DISC FUSION C3-4 C4-5 C5-6 Anesthesia History Anesthesia History - director furniture: Anesthesia History - director furniture Hx Hospitalization No 04/02/25 08:31 Any Problems With Anesthesia Yes: SLOW TO AWAKEN 04/02/25 08:31 Cholinesterase deficiency No 04/02/25 08:31 You/Your Family Experience No 04/02/25 08:31 fever (hyperthermia) with Relationship Recent Exposure to Contagious Disease Does patient have nerve No 04/02/25 08:31 stimulator Patient instructed to have device shut off --Does patient have Pacemaker or ICD? When Was Last Pacemaker Check QUESTION #4 FULL TEXT: You/Your Family Experience fever (hyperthermia) with Anesthesia Last Oral Intake Last Oral intake: Last Oral Intake NPO since Meds taken in AM with sips of water? Meds patient instructed to take am of surgery PONV PONV - director furniture: PONV - director furniture Female Yes 04/02/25 08:31 HX of Motion Sickness No 04/02/25 08:31 HX of N/V After Surgery No 04/02/25 08:31 Non-Smoker Yes 04/02/25 08:31 Duration of Surgery greater Yes 04/02/25 08:31 than 60 minutes Number of Risk Factors 3 04/02/25 08:31 PONV Score Moderate Risk 04/02/25 08:31 Height Weight Height Weight: Anesthesia: Height Weight Height 5 ft 7 in 01/10/25 09:09 Respiratory Assessment Respiratory Assessment - director furniture: Respiratory Tract Infection Hx - director furniture Hx Respiratory Tract Infection No 04/02/25 08:31 STOP Sleep Apnea STOP Sleep Apnea - director furniture: STOP Sleep Apnea - director furniture Hx Hypertension No 04/02/25 08:31 Hx Sleep Apnea Yes: COMPLEX SLEEP APNEA 04/02/25 08:31 CPAP Yes: JUST TESTED NO MACHINE 04/02/25 08:31 YET BIPAP No 04/02/25 08:31 Do you snore loudly (louder than talking or can be heard Do you often feel tired/ fatigued/ sleepy during daytime? Has anyone observed you stop breathing during sleep? STOP Results Positive 04/02/25 08:31 QUESTION #5 FULL TEXT : Do you snore loudly (louder than talking or can be heard through closed doors)? 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 confused, unrespo /Reproduction History /Reproductive History - director furniture: /Reproductive Hx- director furniture Hx Now No 04/02/25 08:31 Gestational Age (in weeks): EDC: Hx Hx Para Hx Section SAB No 04/02/25 08:31 PFSH Medical History Wears glasses Post-menopausal Bladder disease Restless legs Back pain Migraine headache Syncope History of ulceration Heartburn Former smoker CPAP (continuous positive airway pressure) dependence History of pain when walking History of edema Chest pain Home Medications ???Medication ???Instructions ???Recorded ???Last Taken ???Type fexofenadine 60 mg-pseudoephedrine 1 tab PO Q12H PRN sinus symptoms 01/10/25 Unknown History ER 120 mg tablet,ext.release,12 hr (Leelee-D 12 Hour) multivitamin 1 tab PO QAM 01/10/25 Unknown Hist ory acetaminophen 500 mg tablet 1,500 mg PO Q6H PRN pain 04/02/25 Unknown History (Acetaminophen Extra Strength) cyclobenzaprine 10 mg tablet 10 mg PO TID PRN PRN muscle spasm (more content not included)... Normal [facility] Magnesiumon 04-02-2025 Magnesium [Mass/Vol] 2.3 mg/dL High 1.5-2.2 [facility] Comment on above: Performed By: #### L 501.5200 #### [facility] [address] [place], [address] Orthopedic Visit Reporton Orthopedic Visit Report [facility] [address] [place] [address] [address] [place], [place] [address] OFFICE VISIT Date of Service: 04/02/25 MR#: [id number] Acct: [id number] Name: NICOLA GAGNON Rep #: [id number] : 1960 Provider: Dr. Be Macias MD Age/Sex: 64/F Location: [facility] [place] Status: Signed Intake Vital Signs 01/10/25 09:09 Height 5 ft 7 in Weight: 151 lb 6 oz BMI 23.7 Intake Visit Reasons: cervical spine Chief Complaint: pre-op Allergies Penicillins Allergy (Verified 04/02/25 13:35) Rash Medications ???Medication ???Instructions ???Recorded ???Confirmed ???Type fexofenadine 60 mg-pseudoephedrine 1 tab PO Q12H PRN sinus symptoms 01/10/25 04/02/25 History ER 120 mg tablet,ext.release,12 hr (Leelee-D 12 Hour) multivitamin 1 tab PO QAM 01/10/25 04/02/25 His tory acetaminophen 500 mg tablet 1,500 mg PO Q6H PRN pain 04/02/25 04/02/25 History (Acetaminophen Extra Strength) cyclobenzaprine 10 mg tablet 10 mg PO TID PRN PRN muscle spasm 04/02/25 04/02/25 History meloxicam 7.5 mg tablet 7.5 mg PO DAILY 04/02/25 04/02/25 History Have you fallen in the past year?: No PFSH Medical History Wears glasses Post-menopausal Bladder disease Restless legs Back pain Migraine headache Syncope History of ulceration Heartburn Former smoker CPAP (continuous positive airway pressure) dependence History of pain when walking History of edema Chest pain Surgical History Hx of colonoscopy Hx of bladder repair surgery History of lumbar discectomy History of cholecystectomy Social History household members: spouse Smoking Status: Former smoker alcohol intake: current alcohol intake frequency: a few times a week what type of physical activity do you participate in: other details: pickleball 4x week HPI cervical spine Details: This documentation accurately reflects the service provided and the decisions made by me, Dr. Be Macias MD 04/02/25 9465. Part of today???s visit was documented by Alise SOL, acting as scribe. NICOLA GAGNON is a 64 year old F here today for preop, cervical spine, dos 04/10/25. She continues to have neck pain radiating to both upper extremities, with numbness and weakness in hands. 01/10/25: NICOLA GAGNON is a 64 year old F NEW patient here today for her cervical spine. She has been having neck pain for about 15 years and has significantly gotten worse within the last year. She has pain at the base of her neck that can extend up to the base of her skull with occasional muscular pain in her posterior left shoulder. She does occasionally hear a crunching in her neck. Her neck li does cause her to get headaches almost everyday which has been going on for many years. She does have a hx of migraines but notes that those are different than the headaches she gets. She denies balance issues but does get some dizziness. She gets the dizziness if she stands up too fast or if she stands up too fast from bending over in pickleball. 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 She did have an MRI at of her cervical spine in October. She also had some xrays shortly before she had her MRI done as well. She did do PT in October for 6 weeks that didn't help her and some days made her symptoms worse. She did have an epidural steroid injection on 11/[address] Naveed Andrade at pain management in [place] but it didn't give her any relief. She does get some achy pain in her arms bilaterally. Ortho Exam General General: Yes no acute distress Neurologic: Yes alert and Yes oriented x3 Spine SPINE TESTING CERVICAL THORACIC LUMBAR Musculoskeletal Strength 0=absent - 5=normal Details: Examination the neck shows midline and left paraspinal tenderness in the lower neck region. Neurologic motion of upper extremities shows 5 x 5 power in all muscle groups normal sensations in all dermatomes. Hanna's negative. Romberg's is negative. Gait gait shows no imbalance. Coding Level of Care Code Off vis,est,level 4 Diagnoses Spondylolisthesis of cervical region M43.12 Cervical radiculopathy M54.12 Time Spent (min) 35 Assessment and Plan Assessment and Plan (1) Spondylolisthesis of cervical region: Status: Acute (2) Cervical radiculopathy: Status: Acute Plan Again reviewed previous imaging. X-rays of the cervical spine as well as MRI done in October were reviewed with the patient. These show C5-6 and C6-7 disc height loss, C4-5 spondylolisthesis with dynamic instability on flexion-extension views. Loss of cervical lordosis with angular kyphosis at (more content not included)... Normal [facility] Type AND Screen - [facility] ANGEALon 04-02-2025 ABO and Rh group Nom (Bld) Blood group A Rh(D) positive Normal [facility] Comment on above: Order Comment: Surge ry Date: 04/10/25 Reason for Laboratory Test PREOP [id number] No N N S CERVICAL DISC FUSION Performed By: #### L 3890.6202, L500.2500, L100.0100, BTSPAT, M100.651, L3890.6301, L3890.6006, L3100.0300 #### [facility] [address] [place], [address] SLEEP STUDY (SCANNED)Ordered By: Lryic Cota on 03-02-2025 [facility] SLEEP STUDY PSG (SCANNED)Ord ered By: Lyric Cota on 01-30-2025 Radiology Study observation (narrative) [facility] SLEEP STUDY PSG (SCANNED)Ord ered By: Lyric Cota on 01-29-2025 [facility] Cerv Spine 2 or 3 Viewson Cerv Spine 2 or 3 Views [facility] [address] [place] [address] Cerv Spine 2 or 3 Views MR#: [id number] Acct: [id number] Name: NICOLA GAGNON Rep #: [id number] : 1960 F 64 From: Broderick Billy MD PCP: Status: DEP AMB Study: Cerv Spine 2 or 3 Views Date of Exam: 01/10/25 Exam# [id number] Ordering Dr: Claudia Kelley PROCEDURE: CERV SPINE 2 OR 3 VIEWS REASON FOR EXAM: Neck pain TECHNIQUE: Two (2) lateral views of the cervical spine during flexion and extension. COMPARISON: MRI cervical dated 10/12/2024. Plain films of the cervical spine dated 09/27/2024. FINDINGS: Normal vertebral body heights. No visible fracture. Narrowing of the C5-6 and C6-7 interspaces. Anterolisthesis of C4 on C5. Anterolisthesis measures 0.4 cm during flexion and 0.2 cm during extension. Good range of motion during flexion and extension. Prevertebral soft tissues are unremarkable. RAD/Cerv Spine 2 or 3 Views IMPRESSION: Anterolisthesis of C4 on C5 as documented above. Good range of motion during flexion and extension. Degenerative disc disease at C5-6 and C6-7. Reading Location: [facility] CC: JENNIFER Howard Camera Engineer: Signed Normal [facility] Orthopedic Visit Reporton Orthopedic Visit Report [facility] [address] [place] [address] [address] [place] [address] OFFICE VISIT Date of Service: 01/10/25 MR#: [id number] Acct: [id number] Name: NICOLA GAGNON Rep #: [id number] : 1960 Provider: Dr. Be Macias MD Age/Sex: 64/F Location: [facility] Status: Signed with Addenda ADDENDUM by Dr. Be Macias MD on 03/29/25 at 1520 Assessment and Plan Assessment and Plan (1) Spondylolisthesis of cervical region: Status: Acute (2) Cervical radiculopathy: Status: Acute Orders: Orders Cerv Spine 2 or 3 Views 01/10/25 M54.2 - Cervicalgia Plan I was asked to place this addendum for insurance purposes. Patient has unstable spondylolisthesis at C3-4 C4-5 which at C4-5 measures 4.4 mm on flexion reducing to 2 mm on extension, and at C3-4 there is 3.3 mm spondylolisthesis on flexion reducing to neutral on extension. Patient has done physical therapy in October and we will request patient to provide notes from physical therapy. She says that she quit smoking in 2007. 03/29/25 1520 Date Be Macias MD cc: * Signed Intake Vital Signs 01/10/25 09:09 Height 5 ft 7 in Weight: 151 lb 6 oz BMI 23.7 Intake Visit Reasons: CERVICAL SPINE Accompanied by: Self Is patient in pain?: Yes Pain scale (1-10): 6 Allergies Penicillins Allergy (Verified 01/10/25 09:09) Rash Medications ???Medication ???Instructions ???Recorded ???Confirmed ???Type fexofenadine 60 mg-pseudoephedrine 1 tab PO Q12H PRN 01/10/2501/10 History ER 120 mg tablet,ext.release,12 hr (Leelee-D 12 Hour) multivitamin 1 tab PO QAM 01/10/25 01/10/25 His tory Have you fallen in the past year?: Yes PFSH Surgical History (Updated 01/10/25 @ 09:12 by Denise Bradley) History of lumbar discectomy History of cholecystectomy Social History (Updated 01/10/25 @ 09:13 by Denise Bradley) household members: spouse Smoking Status: Former smoker alcohol intake: current alcohol intake frequency: a few times a week what type of physical activity do you participate in: other details: pickleball 4x week HPI CERVICAL SPINE Details: This documentation accurately reflects the service provided and the decisions made by me, Dr. Be Macias MD 01/10/25 0900. Part of today???s visit was documented by Alise SOL, acting as scribe. NICOLA GAGNON is a 64 year old F NEW patient here today for her cervical spine. She has been having neck pain for about 15 years and has significantly gotten worse within the last year. She has pain at the base of her neck that can extend up to the base of her skull with occasional muscular pain in her posterior left shoulder. She does occasionally hear a crunching in her neck. Her neck li does cause her to get headaches almost everyday which has been going on for many years. She does have a hx of migraines but notes that those are different than the headaches she gets. She denies balance issues but does get some dizziness. She gets the dizziness if she stands up too fast or if she stands up too fast from bending over in pickleball. 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 She did have an MRI at of her cervical spine in October. She also had some xrays shortly before she had her MRI done as well. She did do PT in October for 6 weeks that didn't help her and some days made her symptoms worse. She did have an epidural steroid injection on 11/[address] Naveed Andrade at pain management in [place] but it didn't give her any relief. She does get some achy pain in her arms bilaterally. Ortho Exam General General: Yes no acute distress Neurologic: Yes alert and Yes oriented x3 Spine SPINE TESTING CERVICAL THORACIC LUMBAR Musculoskeletal Strength 0=absent - 5=normal Details: Examination the neck shows midline and left paraspinal tenderness in the lower neck region. Neurologic motion of upper extremities shows 5 x 5 power in all muscle groups normal sensations in all dermatomes. Hanna's negative. Romberg's is negative. Gait gait shows no imbalance. Coding Level of Care Code Off vis,new,level 4 Diagnoses Spondylolisthesis of cervical region M43.12 Cervical radiculopathy M54.12 Time Spent (min) 45 Assessment and Plan Assessment and Plan (1) Spondylolisthesis of cervical region: Status: Acute (2) Cervical radiculopathy: Status: Acute Orders: Orders Cerv Spine 2 or 3 Views Today M54.2 - Cervicalgia Plan X-rays of the cervical spine as well as MRI done in October were reviewed with the patient. These show C5-6 and C6-7 disc height loss, C4-5 spondylolisthesis with dynamic instability on flexion- extension view (more content not included)... Normal [facility] BI TRANSFER OF OUTSIDE FILMS on 01-04-2025 BI TRANSFER OF OUTSIDE FILMS Outside images for comparison or treatment purposes, not interpreted by Radiologists. Normal [facility] Study Interpretation of outs santosh studyon 01-04-2025 Outside images for comparison or treatment purposes, not interpreted by Radiologists. IMAGING Outside images for comparison or treatment purposes, not interpreted by Radiologists. IMAGING BI MAMMO BILATERAL SCREENING TOMOSYNTHESISon 01-02-2025 BI MAMMO BILATERAL SCREENING TOMOSYNTHESIS Interpreted By: Darshan Ashton, STUDY: BI MAMMO BILATERAL SCREENING TOMOSYNTHESIS; 01/02/2025 8:34 am ACCESSION NUMBER(S): [id number] ORDERING CLINICIAN: NICOLA MARK INDICATION: Screening. COMPARISON: Digital mammograms dated 08/23/2023 FINDINGS: CC and MLO 2D digital mammograms and digital breast tomosynthesis images were obtained of the bilateral breasts. 3-D volume images were reconstructed in 4 views at an independent workstation as 1 mm slices through the breasts in both the CC and MLO projections. Density: There are scattered areas of fibroglandular density. No discrete mass or focal asymmetry is identified. No suspicious microcalcifications or foci of architectural distortion are seen. There has been no significant change. This study was interpreted with CAD. IMPRESSION: No mammographic evidence of malignancy. BI-RADS CATEGORY: BI-RADS Category: 1 Negative. Recommendation: Annual Screening. Recommended Date: 1 Year. Laterality: Bilateral. MACRO: None Signed by: Darshan Ashton 01/04/2025 8:15 AM Dictation workstation: [id number] [facility] Epidural Steroid Injectionon 11-16-2024 [facility] Work Phone: Radiology Study observation (narrative) [facility] Work Phone: [place] PAIN MANAGEMENTon 025 [place] PAIN [place]NAGEMENT These images are not reportable by radiology and will not be interpreted by Radiologists. Normal [facility] [place] pain managementon 025 These images are not reportable by radiology and will not be interpreted by Radiologists. [facility] Work Phone: MR CERVICAL SPINE WO IV CONT RASTon 10-12-2024 MR CERVICAL SPINE WO IV CONTRAST Interpreted By: Douglas Esqueda, STUDY: MR CERVICAL SPINE WO IV CONTRAST; 10/12/2024 8:29 am INDICATION: Signs/Symptoms:neck pain, BUE radicular symptoms. ,M54.12 Radiculopathy, cervical region COMPARISON: April 2012. ACCESSION NUMBER(S): [id number] ORDERING CLINICIAN: NICKOLAS CHOE TECHNIQUE: The cervical spine was studied in the sagittal and axial planes utilizing T1 and T2 weighted images. FINDINGS: The craniovertebral junction is normal. The cord is normal in size and signal. The marrow signal is normal. Serial axial images reveal the following: C2/C3 There is normal alignment and vertebral body height. The disc space is normal. There is no evidence of canal or foraminal narrowing. There is no evidence of bulging or herniated disc. C3/C4 Focal narrowing of the left lateral recess and neural foramen due to uncovertebral joint hypertrophy and facet hypertrophy. No measurable canal stenosis C4/C5 Left-sided facet hypertrophy and mild left-sided uncovertebral joint hypertrophy without canal stenosis C5/C6 Marginal osteophyte formation asymmetrical to the right with flattening of the thecal sac and slight deformity of the spinal cord. The central canal measures proximally 6 mm in AP dimension in the midline on axial T2 weighted image 73/112. Interval development of severe stenosis of the right lateral recess and neural foramen. There are discogenic type 2 Modic marrow signal changes at this level. C6/C7 Interval progression of bilateral uncovertebral joint hypertrophy and facet hypertrophy resulting in severe right-sided foraminal narrowing and moderate left-sided foraminal narrowing. C7/T1 There is normal alignment and vertebral body height. The disc space is normal. There is no evidence of canal or foraminal narrowing. There is no evidence of bulging or herniated disc. IMPRESSION: * Progression of cervical spondylosis with canal and foraminal narrowing as described. MACRO: none Signed by: Douglas Esqueda 10/12/2024 10:13 AM Dictation workstation: [id number] [facility] MR Cervical spine WO contras ton 10-12-2024 Interpreted By: Douglas Renae, STUDY: MR CERVICAL SPINE WO IV CONTRAST; 10/12/2024 8:29 am INDICATION: Signs/Symptoms:neck pain, BUE radicular symptoms. ,M54.12 Radiculopathy, cervical region COMPARISON: April 2012. ACCESSION NUMBER(S): [id number] ORDERING CLINICIAN: NICKOLAS CHOE TECHNIQUE: The cervical spine was studied in the sagittal and axial planes utilizing T1 and T2 weighted images. FINDINGS: The craniovertebral junction is normal. The cord is normal in size and signal. The marrow signal is normal. Serial axial images reveal the following: C2/C3 There is normal alignment and vertebral body height. The disc space is normal. There is no evidence of canal or foraminal narrowing. There is no evidence of bulging or herniated disc. C3/C4 Focal narrowing of the left lateral recess and neural foramen due to uncovertebral joint hypertrophy and facet hypertrophy. No measurable canal stenosis C4/C5 Left-sided facet hypertrophy and mild left-sided uncovertebral joint hypertrophy without canal stenosis C5/C6 Marginal osteophyte formation asymmetrical to the right with flattening of the thecal sac and slight deformity of the spinal cord. The central canal measures proximally 6 mm in AP dimension in the midline on axial T2 weighted image 73/112. Interval development of severe stenosis of the right lateral recess and neural foramen. There are discogenic type 2 Modic marrow signal changes at this level. C6/C7 Interval progression of bilateral uncovertebral joint hypertrophy and facet hypertrophy resulting in severe right-sided foraminal narrowing and moderate left-sided foraminal narrowing. C7/T1 There is normal alignment and vertebral body height. The disc space is normal. There is no evidence of canal or foraminal narrowing. There is no evidence of bulging or herniated disc. [facility] Douglas Esqueda MD - 10/12/2024 Interpreted By: Douglas Esqueda, STUDY: MR CERVICAL SPINE WO IV CONTRAST; 10/12/2024 8:29 am INDICATION: Signs/Symptoms:neck pain, BUE radicular symptoms. ,M54.12 Radiculopathy, cervical region COMPARISON: April 2012. ACCESSION NUMBER(S): [id number] ORDERING CLINICIAN: NICKOLAS CHOE TECHNIQUE: The cervical spine was studied in the sagittal and axial planes utilizing T1 and T2 weighted images. FINDINGS: The craniovertebral junction is normal. The cord is normal in size and signal. The marrow signal is normal. Serial axial images reveal the following: C2/C3 There is normal alignment and vertebral body height. The disc space is normal. There is no evidence of canal or foraminal narrowing. There is no evidence of bulging or herniated disc. C3/C4 Focal narrowing of the left lateral recess and neural foramen due to uncovertebral joint hypertrophy and facet hypertrophy. No measurable canal stenosis C4/C5 Left-sided facet hypertrophy and mild left-sided uncovertebral joint hypertrophy without canal stenosis C5/C6 Marginal osteophyte formation asymmetrical to the right with flattening of the thecal sac and slight deformity of the spinal cord. The central canal measures proximally 6 mm in AP dimension in the midline on axial T2 weighted image 73/112. Interval development of severe stenosis of the right lateral recess and neural foramen. There are discogenic type 2 Modic marrow signal changes at this level. C6/C7 Interval progression of bilateral uncovertebral joint hypertrophy and facet hypertrophy resulting in severe right-sided foraminal narrowing and moderate left-sided foraminal narrowing. C7/T1 There is normal alignment and vertebral body height. The disc space is normal. There is no evidence of canal or foraminal narrowing. There is no evidence of bulging or herniated disc. IMPRESSION: * Progression of cervical spondylosis with canal and foraminal narrowing as described. MACRO: none Signed by: Doulgas Esqueda 10/12/2024 10:13 AM Dictation workstation: [id number] [facility] Work Phone: Radiology Study observation (narrative) [facility] Work Phone: MR Cervical spine WO contras tOrdered By: Douglas Esqueda on 10-12-2024 [facility] Work Phone: CBC W Auto Differential pane l (Bld)on 10-09-2024 Basophils (Bld) [#/Vol] 0.02 10*3/uL [facility] Basophils/100 WBC (Bld) 0.3 % 0.0 - 2.0 % [facility] Eosinophils (Bld) [#/Vol] 0.08 10*3/uL [facility] Eosinophils/100 WBC (Bld) 1.4 % 0.0 - 6.0 % [facility] Erythrocyte distribution width (RBC) [Ratio] 12.4 % 11.5 - 14.5 % [facility] Hematocrit (Bld) [Volume fraction] 36.6 % 36.0 - 46.0 % [facility] Hemoglobin (Bld) [Mass/Vol] 11.6 g/dL Low 12.0 - 16.0 g/dL [facility] Immature granulocytes (Bld) [#/Vol] 0.04 10*3/uL [facility] Immature granulocytes/100 WBC (Bld) 0.7 % 0.0 - 0.9 % [facility] Comment on above: Immature Granulocyte Count (IG) includes promyelocytes, myelocytes and metamyelocytes but does not include bands. Percent differential counts (%) should be interpreted in the context of the absolute cell counts (cells/UL). Interpretation and review of laboratory results Abnormal [facility] Lymphocytes (Bld) [#/Vol] 1.16 10*3/uL Low [facility] Lymphocytes/100 WBC (Bld) 20.1 % 13.0 - 44.0 % [facility] MCH (RBC) [Entitic mass] 29.1 pg 26.0 - 34.0 pg [facility] MCHC (RBC) [Mass/Vol] 31.7 g/dL Low 32.0 - 36.0 g/dL [facility] MCV (RBC) [Entitic vol] 92 fL 80 - 100 fL [facility] Monocytes (Bld) [#/Vol] 0.47 10*3/uL [facility] Monocytes/100 WBC (Bld) 8.1 % 2.0 - 10.0 % [facility] Neutrophils (Bld) [#/Vol] 4.01 10*3/uL [facility] Comment on above: Percent differential counts (%) should be interpreted in the context of the absolute cell counts (cells/uL). Neutrophils/100 WBC (Bld) 69.4 % 40.0 - 80.0 % [facility] Nucleated RBC/100 WBC (Bld) [Ratio] 0 % [facility] Platelets (Bld) [#/Vol] 276 10*3/uL [facility] RBC (Bld) [#/Vol] 3.98 10*6/uL Low [facility] WBC (Bld) [#/Vol] 5.8 10*3/uL [facility] Basophils (Bld) [#/Vol] 0.02 x10*3/uL Normal 0.00-0.10 [facility] Comment on above: Performed By: #### 5 7021-8 #### STEFANY BRENNER ([id number]) [facility] ([facility]) [address] [place] [address] Basophils/100 WBC (Bld) 0.3 % Normal 0.0-2.0 [facility] Comment on above: Performed By: #### 5 7021-8 #### STEFANY BRENNER ([id number]) [facility] ([facility]) [address] [place] [address] 65873 Eosinophils (Bld) [#/Vol] 0.08 x10*3/uL Normal 0.00-0.70 [facility] Comment on above: Performed By: #### 5 7021-8 #### STEFANY BRENNER ([id number]) [facility] ([facility]) [address] [place] [address] 68743 Eosinophils/100 WBC (Bld) 1.4 % Normal 0.0-6.0 [facility] Comment on above: Performed By: #### 5 7021-8 #### STEFANY BRENNER ([id number]) [facility] ([facility]) [address] [place] [address]8923 Erythrocyte distribution width (RBC) [Ratio] 12.4 % Normal 11.5-14.5 [facility] Comment on above: Performed By: #### 5 7021-8 #### STEFANY BRENNER ([id number]) [facility] ([facility]) [address] [place] [address] 87690 Hematocrit (Bld) [Volume fraction] 36.6 % Normal 36.0-46.0 [facility] Comment on above: Performed By: #### 5 7021-8 #### STEFANY BRENNER ([id number]) [facility] ([facility]) [address] [place] [address] 01640 Hemoglobin (Bld) [Mass/Vol] 11.6 g/dL Low 12.0-16.0 [facility] Comment on above: Performed By: #### 5 7021-8 #### STEFANY BRENNER ([id number]) [facility] ([facility]) [address] [place] [address] 18792 Immature granulocytes (Bld) [#/Vol] 0.04 x10*3/uL Normal 0.00-0.70 [facility] Comment on above: Performed By: #### 5 7021-8 #### STEFANY BRENNER ([id number]) [facility] ([facility]) [address] [place] [address]482 Immature granulocytes/100 WBC (Bld) 0.7 % Normal 0.0-0.9 [facility] Comment on above: Result Comment: Yoko ture Granulocyte Count (IG) includes promyelocytes, myelocytes and metamyelocytes but does not include bands. Percent differential counts (%) should be interpreted in the context of the absolute cell counts (cells/UL). Performed By: #### 5 7021-8 #### STEFANY BRENNER ([id number]) [facility] ([facility]) [address] [place] [address] 26137 Lymphocytes (Bld) [#/Vol] 1.16 x10*3/uL Low 1.20-4.80 [facility] Comment on above: Performed By: #### 5 7021-8 #### STEFANY BRENNER ([id number]) [facility] ([facility]) [address] [place] [address] 94212 Lymphocytes/100 WBC (Bld) 20.1 % Normal 13.0-44.0 [facility] Comment on above: Performed By: #### 5 7021-8 #### STEFANY BRENNER ([id number]) [facility] ([facility]) [address] [place] [address] 93285 MCH (RBC) [Entitic mass] 29.1 pg Normal 26.0-34.0 [facility] Comment on above: Performed By: #### 5 7021-8 #### STEFANY BRENNER ([id number]) [facility] ([facility]) [address] [place] [address] 63357 MCHC (RBC) [Mass/Vol] 31.7 g/dL Low 32.0-36.0 [facility] Comment on above: Performed By: #### 5 7021-8 #### STEFANY BRENNER ([id number]) [facility] ([facility]) [address] [place] [address] MCV (RBC) [Entitic vol] 92 fL Normal 80-100 [facility] Comment on above: Performed By: #### 5 7021-8 #### STEFANY BRENNER ([id number]) [facility] ([facility]) [address] [place] [address] 44153 Monocytes (Bld) [#/Vol] 0.47 x10*3/uL Normal 0.10-1.00 [facility] Comment on above: Performed By: #### 5 7021-8 #### STEFANY BRENNER ([id number]) [facility] ([facility]) [address] [place] [address] 18283 Monocytes/100 WBC (Bld) 8.1 % Normal 2.0-10.0 [facility] Comment on above: Performed By: #### 5 7021-8 #### STEFANY BRENNER ([id number]) [facility] ([facility]) [address] [place] [address] 24513 Neutrophils (Bld) [#/Vol] 4.01 x10*3/uL Normal 1.20-7.70 [facility] Comment on above: Result Comment: Perc ent differential counts (%) should be interpreted in the context of the absolute cell counts (cells/uL). Performed By: #### 5 7021-8 #### STEFANY BRENNER ([id number]) [facility] ([facility]) [address] [place] [address] 07152 Neutrophils/100 WBC (Bld) 69.4 % Normal 40.0-80.0 [facility] Comment on above: Performed By: #### 5 7021-8 #### STEFANY BRENNER ([id number]) [facility] ([facility]) [address] [place] [address] 55263 Nucleated RBC/100 WBC (Bld) [Ratio] 0.0 /100 WBCs Normal 0.0-0.0 [facility] Comment on above: Performed By: #### 5 7021-8 #### STEFANY BRENNER ([id number]) [facility] ([facility]) [address] [place] [address] 12003 Platelets (Bld) [#/Vol] 276 x10*3/uL Normal 150-450 [facility] Comment on above: Performed By: #### 5 7021-8 #### STEFANY BRENNER ([id number]) [facility] ([facility]) [address] [place] [address] 86279 RBC (Bld) [#/Vol] 3.98 x10*6/uL Low 4.00-5.20 [facility] Comment on above: Performed By: #### 5 7021-8 #### STEFANY BRENNER ([id number]) [facility] ([facility]) [address] [place] [address] 08067 WBC (Bld) [#/Vol] 5.8 x10*3/uL Normal 4.4-11.3 [facility] Comment on above: Performed By: #### 5 7021-8 #### STEFANY BRENNER ([id number]) [facility] ([facility]) [address] [place] [address] 57288 Comprehensive metabolic 2000 panelon 10-09-2024 Albumin BCP dye [Mass/Vol] 3.4 g/dL 3.4 - 5.0 g/dL [facility] ALP [Catalytic activity/Vol] 56 U/L 33 - 136 U/L [facility] ALT With P-5'-P [Catalytic activity/Vol] 14 U/L 7 - 45 U/L [facility] Comment on above: Patients treated wit h Sulfasalazine may generate falsely decreased results for ALT. Anion gap [Moles/Vol] 8 mmol/L Low 10 - 20 mmol/L [facility] AST With P-5'-P [Catalytic activity/Vol] 22 U/L 9 - 39 U/L [facility] Bilirubin [Mass/Vol] 0.4 mg/dL 0.0 - 1.2 mg/dL [facility] Calcium [Mass/Vol] 7.8 mg/dL Low 8.6 - 10. 3 mg/dL [facility] Chloride [Moles/Vol] 110 mmol/L High 98 - 107 mmol/L [facility] CO2 [Moles/Vol] 24 mmol/L 21 - 32 mmol/L [facility] Creatinine [Mass/Vol] 0.83 mg/dL 0.50 - 1.05 mg/dL [facility] GFR/1.73 sq M.predicted among non-blacks MDRD (S/P/Bld) [Vol rate/Area] 78 mL/min/{1.73_m2} - PINF [facility] Comment on above: Calculations of cipriano mated GFR are performed using the 2020 CKD-EPI Study Refit equation without the race variable for the IDMS-Traceable creatinine methods. https://jasn.asnjournals.org/content//ASN.17805598 88 Glucose [Mass/Vol] 86 mg/dL 74 - 99 mg/dL [facility] Interpretation and review of laboratory results Abnormal [facility] Potassium [Moles/Vol] 3.7 mmol/L 3.5 - 5.3 mmol/L [facility] Protein [Mass/Vol] 5.5 g/dL Low 6.4 - 8.2 g/dL [facility] Sodium [Moles/Vol] 138 mmol/L 136 - 145 mmol/L [facility] Urea nitrogen [Mass/Vol] 14 mg/dL 6 - 23 mg/dL [facility] Albumin BCP dye [Mass/Vol] 3.4 g/dL Normal 3.4-5.0 [facility] Comment on above: Performed By: #### 2 432-8 #### STEFANY BRENNER ([id number]) [facility] ([facility]) [address] [place] [address] 47661 ALP [Catalytic activity/Vol] 56 U/L Normal 33-136 [facility] Comment on above: Performed By: #### 2 4322-8 #### STEFANY BRENNER ([id number]) [facility] ([facility]) [address] [place] [address] 78829 ALT With P-5'-P [Catalytic activity/Vol] 14 U/L Normal 7-45 [facility] Comment on above: Result Comment: Kiersten ents treated with Sulfasalazine may generate falsely decreased results for ALT. Performed By: #### 2 4322-8 #### STEFANY BRENNER ([id number]) [facility] ([facility]) [address] [place] [address] 31315 Anion gap [Moles/Vol] 8 mmol/L Low 10-20 [facility] Comment on above: Performed By: #### 2 4322-8 #### STEFANY BRENNER ([id number]) [facility] ([facility]) [address] [place] [address] 98268 AST With P-5'-P [Catalytic activity/Vol] 22 U/L Normal 9-39 [facility] Comment on above: Performed By: #### 2 4322-8 #### STEFANY BRENNER ([id number]) [facility] ([facility]) [address] [place] [address] 38942 Bilirubin [Mass/Vol] 0.4 mg/dL Normal 0.0-1.2 [facility] Comment on above: Performed By: #### 2 4322-8 #### STEFANY BRENNER ([id number]) [facility] ([facility]) [address] [place] [address] 04794 Calcium [Mass/Vol] 7.8 mg/dL Low 8.6-10.3 [facility] Comment on above: Performed By: #### 2 4322-8 #### STEFANY BRENNER ([id number]) [facility] ([facility]) [address] [place] [address] Chloride [Moles/Vol] 110 mmol/L High 98-107 [facility] Comment on above: Performed By: #### 2 432-8 #### STEFANY BRENNER ([id number]) [facility] ([facility]) [address] [place] [address] CO2 [Moles/Vol] 24 mmol/L Normal 21-32 [facility] Comment on above: Performed By: #### 2 4323-8 #### STEFANY BRENNER ([id number]) [facility] ([facility]) [address] [place] [address] 22097 Creatinine [Mass/Vol] 0.83 mg/dL Normal 0.50-1.05 [facility] Comment on above: Performed By: #### 2 432-8 #### STEFANY BRENNER ([id number]) [facility] ([facility]) [address] [place] [address] 75805 Glomerular filtration rate/1.73 sq M.predicted 78 mL/min/1.73m*2 Normal >60 [facility] Comment on above: Result Comment: Calc ulations of estimated GFR are performed using the 2020 CKD-EPI Study Refit equation without the race variable for the IDMS-Traceable creatinine methods. https://jasn.asnjournals.org/content//ASN.57286883 88 Performed By: #### 2 4323-8 #### STEFANY BRENNER ([id number]) [facility] ([facility]) [facility] [place] [address] Glucose [Mass/Vol] 86 mg/dL Normal 74-99 [facility] Comment on above: Performed By: #### 2 4323-8 #### STEFANY BRENNER ([id number]) [facility] ([facility]) [facility] [place] [address] Potassium [Moles/Vol] 3.7 mmol/L Normal 3.5-5.3 [facility] Comment on above: Performed By: #### 2 4323-8 #### STEFANY BRENNER ([id number]) [facility] ([facility]) [address] [place], [place] [address] Protein [Mass/Vol] 5.5 g/dL Low 6.4-8.2 [facility] Comment on above: Performed By: #### 2 4323-8 #### STEFANY BRENNER ([id number]) [facility] ([facility]) [address] [place], [place] [address] Sodium [Moles/Vol] 138 mmol/L Normal 136-145 [facility] Comment on above: Performed By: #### 2 4323-8 #### STEFANY BRENNER ([id number]) [facility] ([facility]) [address] [place] [address] Urea nitrogen [Mass/Vol] 14 mg/dL Normal 6-23 [facility] Comment on above: Performed By: #### 2 4323-8 #### STEFANY BRENNER ([id number]) [facility] ([facility]) [address] [place], [place] [address] D-Dimer, VTE Exclusionon Fibrin D-dimer FEU (PPP) [Mass/Vol] 279 [facility] ECG 12-LEADon 10-09-2024 ECG 12-LEAD Ventricular Rate 76 Atrial Rate 76 P-R Interval 184 QRS Duration 76 Q-T Interval 414 QTC Calculation(Bazett) 465 P Hurley 54 R Hurley 11 T Hurley 57 QRS Count 13 Q Onset 223 P Onset 131 P Offset 187 T Offset 430 QTC Fredericia 447 Diagnosis Normal sinus rhythm Normal ECG When compared with ECG of 30-SEP-2024 23:52, QT has lengthened See ED provider note for full interpretation and clinical correlation Confirmed by Nicola Andrade ([id number]) on 10/13/2024 10:44:19 AM Normal [facility] Fibrin D-dimer FEUon 024 Fibrin D-dimer FEU (PPP) [Mass/Vol] 279 ng/mL FEU Normal <=500 [facility] Comment on above: Order Comment: The V TE Exclusion D-Dimer assay is reported in ng/mL Fibrinogen Equivalent Units (FEU). Per trademark paralegal's instructions for use, a value of less than 500 ng/mL (FEU) may help to exclude DVT or PE in outpatients when the assay is used with a clinical pretest probability assessment.(AEM[facility] must utilize and document eCalc 'Wells Score Deep Vein Thrombosis Risk' for DVT exclusion only. Emergency Department should utilize Guidelines for Emergency Department Use of the VTE Exclusion D-Dimer and Clinical Pretest probability assessment model for DVT or PE exclusion.) Performed By: #### 4 8065-7 #### STEFANY BRENNER ([id number]) [facility] ([facility]) [address] [place] [address] Fibrin D-dimer FEU (PPP) [Ma ss/Vol]on 10-09-2024 Interpretation and review of laboratory results Normal [facility] The VTE Exclusion D- Dimer assay is reported in ng/mL Fibrinogen Equivalent Units (FEU). Per trademark paralegal's instructions for use, a value of less than 500 ng/mL (FEU) may help to exclude DVT or PE in outpatients when the assay is used with a clinical pretest probability assessment.([facility]EMR must utilize and document eCalc 'Wells Score Deep Vein Thrombosis Risk' for DVT exclusion only. Emergency Department should utilize Guidelines for Emergency Department Use of the VTE Exclusion D-Dimer and Clinical Pretest probability assessment model for DVT or PE exclusion.) [facility] Lipaseon 10-09-2024 Lipase [Catalytic activity/Vol] 33 U/L 9 - 82 U/L [facility] Lipase [Catalytic activity/V ol]on 10-09-2024 Interpretation and review of laboratory results Normal [facility] Venipuncture immedia tely after or during the administration of Metamizole may lead to falsely low results. Testing should be performed immediately prior to Metamizole dosing. [facility] Triacylglycerol lipaseon Lipase [Catalytic activity/Vol] 33 U/L Normal 82 [facility] Comment on above: Order Comment: Venip uncture immediately after or during the administration of Metamizole may lead to falsely low results. Testing should be performed immediately prior to Metamizole dosing. Performed By: #### 3 040-3 #### STEFANY BRENNER ([id number]) [facility] ([facility]) [address] [place] [address] Tropinin I.cardiac panel Hig h sensitivity methodon 10-09-2024 Interpretation and review of laboratory results Normal [facility] Less than 99th perce ntile of normal range cutoff- Female and children under 18 years old <14 ng/L; Male <21 ng/L: Negative Repeat testing should be performed if clinically indicated. Female and children under 18 years old 14-50 ng/L; Male 21-50 ng/L: Consistent with possible cardiac damage and possible increased clinical risk. Serial measurements may help to assess extent of myocardial damage. >50 ng/L: Consistent with cardiac damage, increased clinical risk and myocardial infarction. Serial measurements may help assess extent of myocardial damage. NOTE: Children less than 1 year old may have higher baseline troponin levels and results should be interpreted in conjunction with the overall clinical context. NOTE: Troponin I testing is performed using a different testing methodology at [facility] than at other [facility]. Direct result comparisons should only be made within the same method. [facility] Interpretation and review of laboratory results Normal [facility] Less than 99th perce ntile of normal range cutoff- Female and children under 18 years old <14 ng/L; Male <21 ng/L: Negative Repeat testing should be performed if clinically indicated. Female and children under 18 years old 14-50 ng/L; Male 21-50 ng/L: Consistent with possible cardiac damage and possible increased clinical risk. Serial measurements may help to assess extent of myocardial damage. >50 ng/L: Consistent with cardiac damage, increased clinical risk and myocardial infarction. Serial measurements may help assess extent of myocardial damage. NOTE: Children less than 1 year old may have higher baseline troponin levels and results should be interpreted in conjunction with the overall clinical context. NOTE: Troponin I testing is performed using a different testing methodology at [facility] than at other [facility]. Direct result comparisons should only be made within the same method. [facility] Troponin I, High Sensitivity , Initialon 10-09-2024 Tropinin I.cardiac panel High sensitivity method ng/L 0 - 13 ng/L [facility] Troponin I.cardiac panelon 1 12-10-2023 Tropinin I.cardiac panel High sensitivity method <3 Normal 0-13 [facility] Comment on above: Order Comment: Less than 99th percentile of normal range cutoff- Female and children under 18 years old <14 ng/L; Male <21 ng/L: Negative Repeat testing should be performed if clinically indicated. Female and children under 18 years old 14-50 ng/L; Male 21-50 ng/L: Consistent with possible cardiac damage and possible increased clinical risk. Serial measurements may help to assess extent of myocardial damage. >50 ng/L: Consistent with cardiac damage, increased clinical risk and myocardial infarction. Serial measurements may help assess extent of myocardial damage. NOTE: Children less than 1 year old may have higher baseline troponin levels and results should be interpreted in conjunction with the overall clinical context. NOTE: Troponin I testing is performed using a different testing methodology at [facility] than at [facility]. Direct result comparisons should only be made within the same method. Performed By: #### 8 9577-1 #### STEFANY BRENNER ([id number]) [facility] ([facility]) [address] [place] [address] 63886 Tropinin I.cardiac panel High sensitivity method <3 Normal 0-13 [facility] Comment on above: Order Comment: Less than 99th percentile of normal range cutoff- Female and children under 18 years old <14 ng/L; Male <21 ng/L: Negative Repeat testing should be performed if clinically indicated. Female and children under 18 years old 14-50 ng/L; Male 21-50 ng/L: Consistent with possible cardiac damage and possible increased clinical risk. Serial measurements may help to assess extent of myocardial damage. >50 ng/L: Consistent with cardiac damage, increased clinical risk and myocardial infarction. Serial measurements may help assess extent of myocardial damage. NOTE: Children less than 1 year old may have higher baseline troponin levels and results should be interpreted in conjunction with the overall clinical context. NOTE: Troponin I testing is performed using a different testing methodology at [facility] than at [facility]. Direct result comparisons should only be made within the same method. Performed By: #### 8 9577-1 #### STEFANY BRENNER ([id number]) [facility] ([facility]) [facility] [place] [address] Troponin, High Sensitivity, 1 Houron 10-09-2024 Tropinin I.cardiac panel High sensitivity method ng/L 0 - 13 ng/L [facility] XR CHEST 1 VIEWon 10-09-2024 XR CHEST 1 VIEW Interpreted By: Aguila Mena, STUDY: XR CHEST 1 VIEW; 10/09/2024 4:50 pm INDICATION: Signs/Symptoms:cp. COMPARISON: 08/29/2017 ACCESSION NUMBER(S): [id number] ORDERING CLINICIAN: JASON BONILLA FINDINGS: CARDIOMEDIASTINAL SILHOUETTE: Cardiomediastinal silhouette is normal in size and configuration. LUNGS: Lungs are clear. ABDOMEN: No remarkable upper abdominal findings. BONES: No acute osseous changes. IMPRESSION: 1. No evidence of acute cardiopulmonary process. MACRO: None Signed by: Aguila Ortega 10/09/2024 5:10 PM Dictation workstation: [id number] [facility] XR Chest Single viewon 10-09 1. No evidence of ac ralph cardiopulmonary process. MACRO: None Signed by: Aguila Ortega 10/09/2024 5:10 PM Dictation workstation: [id number] MMODAL Interpreted By: Aguila Mena, STUDY: XR CHEST 1 VIEW; 10/09/2024 4:50 pm INDICATION: Signs/Symptoms:cp. COMPARISON: 08/29/2017 ACCESSION NUMBER(S): [id number] ORDERING CLINICIAN: JASON BONILLA FINDINGS: CARDIOMEDIASTINAL SILHOUETTE: Cardiomediastinal silhouette is normal in size and configuration. LUNGS: Lungs are clear. ABDOMEN: No remarkable upper abdominal findings. BONES: No acute osseous changes. MMODAL Aguila Ortega MD - 10/09/2024 Interpreted By: Aguila Ortega, STUDY: XR CHEST 1 VIEW; 10/09/2024 4:50 pm INDICATION: Signs/Symptoms:cp. COMPARISON: 08/29/2017 ACCESSION NUMBER(S): [id number] ORDERING CLINICIAN: JASON BONILLA FINDINGS: CARDIOMEDIASTINAL SILHOUETTE: Cardiomediastinal silhouette is normal in size and configuration. LUNGS: Lungs are clear. ABDOMEN: No remarkable upper abdominal findings. BONES: No acute osseous changes. IMPRESSION: 1. No evidence of acute cardiopulmonary process. MACRO: None Signed by: Aguila Ortega 10/09/2024 5:10 PM Dictation workstation: [id number] [facility] Work Phone: Radiology Study observation (narrative) [facility] Work Phone: XR Chest Single viewOrdered By: Aguila Ortega on 10-09-2024 [facility] Work Phone: XR CERVICAL SPINE COMPLETE 4 -5 VIEWSon 09-27-2024 XR CERVICAL SPINE COMPLETE 4-5 VIEWS Interpreted By: Aguila Ortega, STUDY: XR CERVICAL SPINE COMPLETE 4-5 VIEWS; ; 09/27/2024 12:25 pm INDICATION: Signs/Symptoms:Chronic cervical neck pain. ,M54.2 Cervicalgia COMPARISON: None. ACCESSION NUMBER(S): [id number] ORDERING CLINICIAN: NICOLA MARK FINDINGS: C-spine, five views There is moderate disc space narrowing with osteophytosis fracture C6 with mild changes at C6-7. There is no fracture. There is minimal anterolisthesis of C4-5. There is mild facet disease mid to lower cervical spine IMPRESSION: Moderate spondylosis worse at C5-C6 Mild facet disease. Minimal anterolisthesis C4 on C5 MACRO: None Signed by: Aguila Ortega 09/28/2024 8:37 PM Dictation workstation: [id number] Normal [facility] CBC panel Auto (Bld)on 08-20 Erythrocyte distribution width (RBC) [Ratio] 12.3 % Normal 11.5-14.5 [facility] Comment on above: Performed By: #### 5 8410-2 #### STEFANY BRENNER ([id number]) [facility] ([facility]) [address] [place] [address] 10572 Hematocrit (Bld) [Volume fraction] 44.4 % Normal 36.0-46.0 [facility] Comment on above: Performed By: #### 5 8410-2 #### STEFANY BRENNER ([id number]) [facility] ([facility]) [address] [place] [address] 50199 Hemoglobin (Bld) [Mass/Vol] 13.9 g/dL Normal 12.0-16.0 [facility] Comment on above: Performed By: #### 5 8410-2 #### STEFANY BRENNER ([id number]) [facility] ([facility]) [address] [place] [address] 31446 MCH (RBC) [Entitic mass] 29.0 pg Normal 26.0-34.0 [facility] Comment on above: Performed By: #### 5 8410-2 #### STEFANY BRENNER ([id number]) [facility] ([facility]) [address] [place] [address] 56057 MCHC (RBC) [Mass/Vol] 31.3 g/dL Low 32.0-36.0 [facility] Comment on above: Performed By: #### 5 8410-2 #### STEFANY BRENNER ([id number]) [facility] ([facility]) [address] [place] [address] 88811 MCV (RBC) [Entitic vol] 93 fL Normal 80-100 [facility] Comment on above: Performed By: #### 5 8410-2 #### STEFANY BRENNER ([id number]) [facility] ([facility]) [address] [place] [address] 69230 Nucleated RBC/100 WBC (Bld) [Ratio] 0.0 /100 WBCs Normal 0.0-0.0 [facility] Comment on above: Performed By: #### 5 8410-2 #### STEFANY BRENNER ([id number]) [facility] ([facility]) [address] [place] [address] 74340 Platelets (Bld) [#/Vol] 344 x10*3/uL Normal 150-450 [facility] Comment on above: Performed By: #### 5 8410-2 #### STEFANY BRENNER ([id number]) [facility] ([facility]) [address] [place] [address] 88248 RBC (Bld) [#/Vol] 4.80 x10*6/uL Normal 4.00-5.20 [facility] Comment on above: Performed By: #### 5 8410-2 #### STEFANY BRENNER ([id number]) [facility] ([facility]) [address] [place] [address] WBC (Bld) [#/Vol] 4.8 x10*3/uL Normal 4.4-11.3 [facility] Comment on above: Performed By: #### 5 8410-2 #### STEFANY BRENNER ([id number]) [facility] ([facility]) [address] [place] [address] Comprehensive metabolic 2000 panelon 08-20-2024 Albumin BCP dye [Mass/Vol] 4.1 g/dL Normal 3.4-5.0 [facility] Comment on above: Performed By: #### 2 4323-8 #### STEFANY BRENNER ([id number]) [facility] ([facility]) [address] [place] [address] ALP [Catalytic activity/Vol] 69 U/L Normal 33-136 [facility] Comment on above: Performed By: #### 2 4323-8 #### STEFANY BRENNER ([id number]) [facility] ([facility]) [address] [place] [address] ALT With P-5'-P [Catalytic activity/Vol] 13 U/L Normal 7-45 [facility] Comment on above: Result Comment: Kiersten ents treated with Sulfasalazine may generate falsely decreased results for ALT. Performed By: #### 2 4323-8 #### STEFANY BRENNER ([id number]) [facility] ([facility]) [address] [place] [address] Anion gap [Moles/Vol] 11 mmol/L Normal 10-20 [facility] Comment on above: Performed By: #### 2 4323-8 #### STEFANY BRENNER ([id number]) [facility] ([facility]) [address] [place] [address] 25421 AST With P-5'-P [Catalytic activity/Vol] 15 U/L Normal 9-39 [facility] Comment on above: Performed By: #### 2 4323-8 #### STEFANY BRENNER ([id number]) [facility] ([facility]) [address] [place] [address] Bilirubin [Mass/Vol] 0.4 mg/dL Normal 0.0-1.2 [facility] Comment on above: Performed By: #### 2 4323-8 #### STEFANY BRENNER ([id number]) [facility] ([facility]) [address] [place] [address] Calcium [Mass/Vol] 9.0 mg/dL Normal 8.6-10.3 [facility] Comment on above: Performed By: #### 2 4323-8 #### STEFANY BRENNER ([id number]) [facility] ([facility]) [address] [place] [address] Chloride [Moles/Vol] 107 mmol/L Normal 98-107 [facility] Comment on above: Performed By: #### 2 4323-8 #### STEFANY BRENNER ([id number]) [facility] ([facility]) [address] [place] [address] 71972 CO2 [Moles/Vol] 27 mmol/L Normal 21-32 [place] Comment on above: Performed By: #### 2 4323-8 #### STEFANY BRENNER ([id number]) [facility] ([facility]) [facility] [place] [address] Creatinine [Mass/Vol] 0.92 mg/dL Normal 0.50-1.05 [facility] Comment on above: Performed By: #### 2 4323-8 #### STEFANY BRENNER ([id number]) [facility] ([facility]) [address] [place] [address] 21964 Glomerular filtration rate/1.73 sq M.predicted 69 mL/min/1.73m*2 Normal >60 [facility] Comment on above: Result Comment: Calc ulations of estimated GFR are performed using the 2020 CKD-EPI Study Refit equation without the race variable for the IDMS-Traceable creatinine methods. https://jasn.asnjournals.org/content//ASN.21649319 88 Performed By: #### 2 4323-8 #### STEFANY BRENNER ([id number]) [facility] [facility] ([facility]) [address] [place] [address] Glucose [Mass/Vol] 84 mg/dL Normal 74-99 [facility] Comment on above: Performed By: #### 2 4323-8 #### STEFANY BRENNER ([id number]) [facility] ([facility]) [address] [place] [address] Potassium [Moles/Vol] 4.9 mmol/L Normal 3.5-5.3 [facility] Comment on above: Performed By: #### 2 4323-8 #### STEFANY BRENNER ([id number]) [facility] ([facility]) [address] [place] [address] 12783 Protein [Mass/Vol] 6.5 g/dL Normal 6.4-8.2 [facility] Comment on above: Performed By: #### 2 4323-8 #### STEFANY BRENNER ([id number]) [facility] ([facility]) [address] [place] [address] 95018 Sodium [Moles/Vol] 140 mmol/L Normal 136-145 [facility] Comment on above: Performed By: #### 2 4323-8 #### STEFANY BRENNER ([id number]) [facility] ([facility]) [address] [place] [address] 68221 Urea nitrogen [Mass/Vol] 19 mg/dL Normal 6-23 [facility] Comment on above: Performed By: #### 2 4323-8 #### STEFANY BRENNER ([id number]) [facility] ([facility]) [address] [place] [address] 63961 Lipid 1996 panelon 4 Cholesterol [Mass/Vol] 233 mg/dL High 0-199 [facility] Comment on above: Result Comment: Age Desirable Borderline High High 0-19 Y 0 - 169 170 - 199 >/= 200 20-24 Y 0 - 189 190 - 224 >/= 225 >24 Y 0 - 199 200 - 239 >/= 240 All ranges are based on fasting samples. Specific therapeutic targets will vary based on patient-specific cardiac risk. Pediatric guidelines reference:Pediatrics 2011, 128(S5).Adult guidelines reference: NCEP ATPIII Guidelines,LORRIE 2001, 258:2486-97 Venipuncture immediately after or during the administration of Metamizole may lead to falsely low results. Testing should be performed immediately prior to Metamizole dosing. Performed By: #### 2 4331-1 #### STEFANY BRENNER ([id number]) [facility] ([facility]) [address] [place] [address] 12295 Cholesterol in HDL [Mass/Vol] 41.0 mg/dL Normal [facility] Comment on above: Result Comment: Age Very Low Low Normal High 0-19 Y < 35 < 40 40-45 ---- 20-24 Y ---- < 40 >45 ---- >24 Y ---- < 40 40-60 >60 Performed By: #### 2 4331-1 #### STEFANY BRENNER ([id number]) [facility] ([facility]) [address] [place] [address] 16680 Cholesterol in LDL [Mass/Vol] 158 mg/dL High <=99 [facility] Comment on above: Result Comment: Near Borderline AGE Desirable Optimal High High Very High 0-19 Y 0 - 109 --- 110-129 >/= 130 ---- 20-24 Y 0 - 119 --- 120-159 >/= 160 ---- >24 Y 0 - 99 100-129 130-159 160-189 >/=190 Performed By: #### 2 4331-1 #### STEFANY BRENNER ([id number]) [facility] ([facility]) [address] [place] [address] 14029 Cholesterol in VLDL [Mass/Vol] 34 mg/dL Normal 0-40 [facility] Comment on above: Performed By: #### 2 4331-1 #### STEFANY BRENNER ([id number]) [facility] ([facility]) [address] [place] [address] 52946 CHOLESTEROL/HDL RATIO 5.7 Normal [facility] Comment on above: Result Comment: Ref Values Desirable < 3.4 High Risk > 5.0 Performed By: #### 2 4331-1 #### STEFANY BRENNER ([id number]) [facility] ([facility]) [address] [place] [address] 57123 NON HDL CHOLESTEROL 192 mg/dL High 0-149 [facility] Comment on above: Result Comment: Age Desirable Borderline High High Very High 0-19 Y 0 - 119 120 - 144 >/= 145 >/= 160 20-24 Y 0 - 149 150 - 189 >/= 190 ---- >24 Y 30 mg/dL above LDL Cholesterol goal Performed By: #### 2 4331-1 #### STEFANY BRENNER ([id number]) [facility] ([facility]) [address] [place] [address] 24272 Triglyceride [Mass/Vol] 171 mg/dL High 0-149 [facility] Comment on above: Result Comment: Age Desirable Borderline High High Very High 0 D-90 D 19 - 174 ---- ---- ---- 91 D- 9 Y 0 - 74 75 - 99 >/= 100 ---- 10-19 Y 0 - 89 90 - 129 >/= 130 ---- 20-24 Y 0 - 114 115 - 149 >/= 150 ---- >24 Y 0 - 149 150 - 199 200- 499 >/= 500 Venipuncture immediately after or during the administration of Metamizole may lead to falsely low results. Testing should be performed immediately prior to Metamizole dosing. Performed By: #### 2 4331-1 #### STEFANY BRENNER ([id number]) [facility] ([facility]) [address] [place] [address] 77498 Thyrotropinon 08-20-2024 TSH Qn 1.89 m[IU]/L Normal 0.44-3.98 [facility] Comment on above: Order Comment: TSH t esting is performed using different testing methodology at [facility] than at other [facility]. Direct result comparisons should only be made within the same method. Performed By: #### 3 016-3 #### MANDA Sheldon ([id number]) [facility] ([facility]) [id number] [place], [place] [id number] BD DXA - AXIAL SKELETONon BD DXA - AXIAL SKELETON * * *Final Report* * * DATE OF EXAM: Aug 23 2023 10:17AM WRB 0804 - BD DXA - AXIAL SKELETON / PROCEDURE REASON: multiple diagnoses * * * * Physician Interpretation * * * * PROCEDURE: BD DXA - AXIAL SKELETON INDICATION: Asymptomatic postmenopausal evaluation TECHNIQUE: Low dose AP spine and hip images COMPARISON: None LUMBAR SPINE: The bone mineral density from L1 through L4 is 1.024 grams per square centimeter which yields a T-score of -0.2. LEFT HIP: The bone mineral density of the total region of the hip is 0.974 grams per square centimeter which yields a T-score of 0.3. LEFT FEMORAL NECK: The bone mineral density of the femoral neck is 0.833 grams per square centimeter which yields a T-score of -0.1. RIGHT HIP: The bone mineral density of the total region of the hip is 0.968 grams per square centimeter which yields a T-score of 0.2. RIGHT FEMORAL NECK: The bone mineral density of the femoral neck is 0.790 grams per square centimeter which yields a T-score of -0.5. 10-year Fracture Risk (FRAX): Major osteoporotic fracture risk 7.3% Hip fracture risk 0.4% IMPRESSION: Normal bone mineral density. WORLD HEALTH ORG. CLASSIFICATION OF BONE MASS CLASSIFICATION T-SCORE Normal Greater than -1 Low Bone Mass Between -1 and -2.5 (Osteopenia) Osteoporosis Less than or equal to -2.5 Camera Engineer: ELVER Transcribe Date/Time: Aug 23 2023 10:24A Dictated by : FREDRICK WINSTON MD This examination was interpreted and the report reviewed and electronically signed by: FREDRICK WINSTON MD on Aug 23 2023 10:27AM EST [id number] Normal [facility] CNCOon 08-23-2023 CNCO HNO ID: [id number] Author: Coordinator, Mammography Service: ? Author Type: Physician Type: Letter Filed: 08/24/2023 11:35 PM Note Text: August 24, 2023 PID: [id number] Nicola Gagnon [address] [place] [address] [place] [address] Dear Ms. Gagnon, We are pleased to inform you that the results of your recent breast imaging exam on 08/23/2023 are normal. Your mammogram demonstrates that you have dense breast tissue, which could hide abnormalities. Dense breast tissue, in and of itself, is a relatively common condition. Therefore, this information is not provided to cause undue concern; rather, it is to raise your awareness and promote discussion with your health care provider regarding the presence of dense breast tissue in addition to other risk factors. Early detection of cancer is very important. We also understand recommendations regarding breast cancer screening are controversial. Please discuss with your primary care provider which strategy is best for you and whether a mammogram is right for you. Your imaging studies and report will be kept on file at [facility] as part of your permanent medical record and are available for your continuing care. Thank you for allowing us to help in meeting your health care needs. Sincerely, Dr. Brooke Interpreting Radiologist [facility] (Normal over 40) Normal [facility] SCREENING W TOMOon 08-23 LYRIC SCREENING W ANAYA * * *Final Report* * * DATE OF EXAM: Aug 23 2023 10:58AM WRW 0582 - LYRIC SCREENING W ANAYA / PROCEDURE REASON: multiple diagnoses * * * * Physician Interpretation * * * * RESULT: #[id number] - LYRIC SCREENING W ANAYA BILATERAL DIGITAL SCREENING MAMMOGRAM TOMOSYNTHESIS WITH CAD: 08/23/2023 HISTORY: Multiple Diagnoses / Screening Mammogram-Patient reports NO symptoms. /priors available for comparison. RESULT: TECHNIQUE: The study was acquired using full field digital technology and interpreted from soft copy. Digital Breast Tomosynthesis (DBT) images were obtained and used to assist in the interpretation of this examination. Current study was also evaluated with a Computer Aided Detection (CAD). Comparison is made to exams dated: 04/30/2019 mammogram, 05/28/2021 mammogram - [facility], and 02/08/2018 mammogram - [facility]. The breasts are heterogeneously dense, which may obscure small masses. No significant masses, calcifications, or other findings are seen in either breast. There has been no significant interval change. IMPRESSION: NEGATIVE There is no mammographic evidence of malignancy. A 1 year screening mammogram is recommended. Estela henning/hunter:08/23/2023 14:17:09 Cardiac Catheterization Technologist(s): RT Phylicia(R)(M), [facility] letter sent: Normal over 40 Mammogram BI-RADS: 1 Negative Multiple national specialty organizations have released breast cancer screening guidelines for women at average risk for developing breast cancer - guidelines that are based on both evidence and opinion, yet differ on when to start and how often to screen for breast cancer. With representation from Breast Imaging, Internal Medicine, Women's Health, Family Medicine, and Medical/Surgical Oncology, the [facility] has carefully reviewed the data and reached the following consensus: 1) All women should engage in shared decision-making with their providers to decide when to start and how often to screen; 2) All women should have the opportunity to start screening mammography at age 40; 3) For women ages 45-55, we recommend annual screening mammograms; 4) For women ages 55 and over, we support both the transition from an annual to a biennial interval if this aligns more with patient's values and preferences, or continuation with annual screening; 5) All women should discuss with their providers when to stop screening mammograms. Camera Engineer: Hunter Transcribe Date/Time: Aug 23 2023 10:39A Dictated by: ESTELA BROOKE MD This examination was interpreted and the report reviewed and electronically signed by: ESTELA BROOKE MD on Aug 23 2023 2:17PM EST [id number] Normal [facility] CNOVon 08-19-2023 CNOV Office Visit (OBGYWM ) ----- NICOLA GAGNON ([id number]) 1960 F Date Time Provider Department 08/19/23 11:00 AM SARA NAVARRETE During your visit today, we recorded the following information about you: Blood pressure Weight Height 124/80 82.1 kg 1.715 m Sara Navarrete APRN.CNP 08/19/2023 12:37 PM Signed Wood Grinder offered: Tyler Davey is a 63 year old who presents for an annual gynecologic exam without complaints. 07/21/2021 enterocele repair, posterior colporrhaphy and perineorrhaphy Dr Wilde Venlafaxine helps hot flashes and did notice it helped her depression after had a stroke recently. Postmenopausal: Hysterectomy, ovaries remain. 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 LMP: 12/23/2005, Hysterectomy Age at Menarche: Age at First : Age at Menopause: [employer] Faculty Member History Comments: Sexual Activity: Not Currently; Male; tubal ligation then Contraception: Surgical PAST MEDICAL HISTORY Diagnosis Date Depressive disorder, not elsewhere classified was on zoloft for hot flashes Diverticulosis 2009 on colonoscopy with poor prep Family history of breast cancer in mother Fibrocystic breast changes one cyst Heterozygous MTHFR mutation [id number] 11/2013 Heterozygous MTHFR mutation C677T 11/2013 rec cerefolinNAC or deplin HSDD low normal testosterone offered vaginal DHEA Insomnia has been on serax, has tried black cohosh Lumbago Migraine Occipital neuralgia 12/2015 Other and unspecified hyperlipidemia 11/2013 cholesterol 219 elevated TG Postmenopausal HRT (hormone replacement therapy) had fibrocystic breasts on compounded BHT Postmenopausal HRT (hormone replacement therapy) 11/2013 given elestrin Rash 11/2013 stopped wellbutrin Rectocele Symptomatic states associated with artificial menopause 12/2005 fibroid s/p TH ovaries left in place 11/2013 normal bone density estradiol 215 Unspecified vertiginous syndromes and labyrinthine disorders Vitamin D deficiency 11/2013 30.7 Weight gain 50 lbs PAST SURGICAL HISTORY Procedure Laterality Date ARTHRT KNE W/JT EXPL BX/RMVL LOOSE/FB 1984 CHOLECYSTECTOMY 1992 laparascopy COLONOSCOPY FLX DX W/COLLJ SPEC WHEN PFRMD 12/16/2009,01/2015 Colonoscopy diverticulosis some retained stool LIG/TRNSXJ FLP TUBE ABDL/VAG APPR UNI/BI PAST SURGICAL HISTORY OF 2006 DR Elissa Rosadoide diskectomy lumbar disc VAGINAL HYSTERECTOMY UTERUS 250 GM/< 12/30/2005 FAMILY HISTORY Problem Relation Age of Onset Emphysema Father ex-smoker, pancreatitis, colon polyps other (Breast Cancer, remission) Mother PM living age 76 Heart Maternal Grandfather Diabetes Paternal Grandfather other (healthy) Son other (healthy) Son other (healthy) Son other (No FH of multiple sclerosis) Other Anesthesia Problems No Family History SOCIAL HISTORY Social History Tobacco Use Smoking status: Former Packs/day: 1.00 Years: 30.00 Additional pack years: 0.00 Total pack years: 30.00 Types: Cigarettes Smokeless tobacco: Never Tobacco comments: 04/30/2008 Vaping Use Vaping Use: Never used Substance Use Topics Alcohol use: Yes Comment: occasionally - 5 drinks per week or less Drug use: No REVIEW OF SYSTEMS Abdomen: No abdominal pain, nausea, vomiting, diarrhea, or constipation. No bloating, early satiety, indigestion, or increased flatulence. Bladder: No dysuria, gross hematuria, urinary frequency, urinary urgency, or incontinence Breast: No breast lumps, nipple d/c, overlying skin changes, redness or skin retraction Allergies and current medication updated:Yes EXAM: BP 124/80 Ht 5' 7.5 (1.72m) Wt 181 lb (82.1kg) LMP 12/23/2005 BMI 27.91 kg/(m2). GENERAL: pleasant, female in no apparent distress HEENT: Normocephalic, atraumatic, mucus membranes moist, and no lesions NECK: Supple, full range of motion, no adenopathy, and thyroid normal DERMATOLOGY: Normal, without lesions, non-icteric, and non-hirsute BREAST: soft, non-tender, symmetric, no dominant mass, normal nipple-areolar complex, no lymphadenopathy, and no nipple discharge CHEST: Normal inspiratory effort ABDOMEN: soft, non-tender, and no masses PELVIC: external genitalia normal, normal Bartholin's glands, urethra, Broken Arrow's glands, no vulvar lesions, good vaginal support, physiologic discharge present, normal appearing perineal body and perianal region, cervix surgically absent BIMANUAL: no adnexal masses, non-tender, and uterus surgically absent RECTOVAGINA (more content not included)... Normal [facility] ----- NICOLA GAGNON ([id number]) 1960 F Date Time Provider Department 03/10/23 SARA NAVARRETE During your visit today, we recorded the following information about you: Estela Delgado LPN 03/10/2023 3:14 PM Signed Electronic PA submitted for Venlafaxine ER 150mg. Will await further response from insurance. Estela Delgado LPN 03/10/2023 4:29 PM Signed Received denial for Effexor from pt's insurance. Spoke with pt and she stated that she has a different insurance until age 65. She will forward the information to me via [employer] and then PA will be submitted with new insurance. Estela Delgado LPN 03/11/2023 11:04 AM Signed Electronic PA submitted to corrected insurance. Will await further response from pt's insurance. Estela Delgado LPN 03/11/2023 11:19 AM Signed Received denial for Venlafaxine ER 150mg. This is excluded from the pt's coverage. GoodRx vazquez at [email or web address] is $12.07 for a 30d supply. Pt stated that she will go to the pharmacy and have them try her card incase she gave incorrect numbers to me in her [employer] message. If it still comes up denied she will have them run medication through [employer]. Pt stated that she will have this stop gap insurance until march when she will switch to Medicare. Please advise as to any changes. Estela Navarrete APRN.PILY 03/11/2023 1:02 PM Signed Noted. Sara Navarrete APRN.PILY Allergies As of Date: 03/10/2023 Noted Allergy Reaction BUPROPION 04/30/2019 4 - Hives PENICILLINS 08/18/2001 Date Reviewed: 10/16/2021 Reviewed by: Philomena Arenas - Fully Assessed Reason for Visit: Insurance Authorization [[id number]] Prescriptions as of 03/11/2023 - venlafaxine ER (EFFEXOR XR) 150 mg 24 hr capsule Take 1 capsule by mouth once daily. - estradiol 0.01% estriol 0.01% topical cream (CPD) Apply 0.5g (2 clicks) vaginally and 0.5g (2 clicks) around the vaginal opening 3 times weekly. - acetaminophen (TYLENOL EXTRA STRENGTH) 500 mg tablet Take 2 tablets by mouth every 6 hours as needed for pain. - ibuprofen (MOTRIN) 600 mg tablet Take 1 tablet by mouth every 6 hours as needed for pain. - estradiol 0.01% estriol 0.01% topical cream (CPD) Insert 0.5g (2 clicks) vaginally every night at bedtime for two weeks, then twice weekly thereafter. - conjugated estrogens (PREMARIN) vaginal cream Use 1 g vaginally two times a week. Use 1g vaginally every night for two weeks and then twice weekly after that - ZOLMitriptan (ZOMIG) 2.5 mg tablet Take 1 tab at migraine onset. May repeat once in 2 hours if needed. Give max allowed per insurance. - SUMAtriptan (IMITREX) 100 mg tablet Take 1 tab at migraine onset. May repeat once in 2 hours if needed. Give max allowed per insurance. - fexofenadine-pseudoephedr ine (LEELEE D) 60-120 mg per tablet Take 1 tablet by mouth. - naproxen sodium (ALEVE) 220 mg cap Take by mouth. - CYANOCOBALAMIN, VITAMIN B-12, (VITAMIN B-12 ORAL) Take by mouth. - Cholecalciferol, Vitamin D3, 2,000 unit cap Take 1 capsule by mouth once daily. one po daily Problem List As Of Date 03/10/2023 Noted Resolved Symptomatic states associated with artificial m*11/12/2013 Screening breast examination [Z12.39] 11/12/2013 Abnormal weight gain [R63.5] 11/12/2013 Diverticulosis [K57.90] Postmenopausal HRT (hormone replacement therapy* Family history of breast cancer in mother [Z80.* HSDD [F52.0] Weight gain [R63.5] History of tobacco use [Z87.891] Insomnia [G47.00] Migraine [G43.909] Lumbago [M54.50] Rectocele [N81.6] Other and unspecified hyperlipidemia [E78.5] Vitamin D deficiency [E55.9] Heterozygous MTHFR mutation C677T [Z15.89] Heterozygous MTHFR mutation J0221F [Z15.89] NDPH (new daily persistent headache) [G44.52] 05/28/2016 Bilateral occipital neuralgia [M54.81] 05/28/2016 Chronic daily headache [R51.9] 05/28/2016 Chronic migraine without aura, with intractable*05/05/2017 Intractable chronic migraine without aura and w*05/05/2017 Chronic tension-type headache, intractable [G44*05/05/2017 Hypertrophy of breast [N62] 02/20/2018 Encounter Status:Closed by ESTELA DELGADO LPN on 03/11/23 [facility] Provider Note - ED v3on 05-08 Provider Note - ED v3 Provider Note: Chart Review: HISTORY OF PRESENTING ILLNESS NICOLA is a 62 year old Female and was seen by me at 28-May-2022 12:23. The historian is the [facility]. Triage Information: Most recent Vital Sign Value Date PAST MEDICAL HISTORY ALLERGIES/INTOLERANCES: Allergy Allergen: penicillins Type: Drug Category Reaction: Hives/Urticaria HEALTH HISTORY: Medical History Name:Hot flashes due to menopause Code:N95.1 History of chronic neck/back issues; no other known health issues. Family history: no pertinent history. Social history: non-smoker. . OUTPATIENT MEDICATIONS: Home Medications Review Status for Reconciliation: Complete Med Status: Patient Currently Takes Medications Drug Name: Effexor Instructions: 150 milligram(s) orally once a day Drug Name: Vitamin B-12 100 mcg oral tablet Instructions: 1 tab(s) orally once a day Drug Name: vitamin E oral capsule Instructions: orally once a day Drug Name: Magnesium Chloride With Calcium 64 mg-112 mg oral delayed release tablet Instructions: orally once a day Drug Name: naproxen 500 mg oral tablet Instructions: 1 tab(s) orally every 12 hours, As Needed for pain/inflammation. Take with food. SIGNIFICANT EVENTS: Immunizations Description:SARS-CoV-2 (COVID-19) Description:SARS-CoV-2 (COVID-19) Additional Notes:moderna 011G33T History of R knee surgery, low back surgery, hysterectomy, bladder sling, cholecystectomy. CRITICAL CARE RESULTS: Radiology Results: Xray Shoulder Complete Min 2 Views [May 28 2022 1:49PM] FINAL REPORT - Left Interpreted by: DARSHAN ASHTON CHRISTOPHER, MD 05/28/22 13:47 Facility: [facility] Patient Name: NICOLA GAGNON STUDY: SHOULDER, CMPLT, MIN 2 VIEWS; 05/28/2022 1:31 pm INDICATION: Attn: clavicle and scapula. Pain in L shoulder s/p falling this AM. Swelling/prominence noted to superior portion of scapula and to clavicle. . COMPARISON: None. ACCESSION NUMBER(S): [id number] ORDERING CLINICIAN: ROSALINDA RINALDI TECHNIQUE: 5 views of the left shoulder including AP , AP internal rotation , Grashey, axillary and scapular Y-views were obtained. FINDINGS: There is no radiographic evidence of acute fracture or dislocation identified. The joint spaces are well preserved without significant degenerative changes. IMPRESSION: 1. No evidence of acute fracture or dislocation. Transcribed By: Interface, User Electronically Signed By: DARSHAN ASHTON CHRISTOPHER 05/28/22 13:47 VITAL SIGNS: T PRBP SpO2O2(LPM) %FiO2 Method 28-May-2022 11:53:[id number] 95 MDM MDM/ED COURSE: This note was generated with voice recognition software and may contain errors including spelling, grammar, syntax, and misrecognization of what was dictated CHIEF COMPLAINT L shoulder pain/injury HISTORY OF PRESENT ILLNESS Pt presents today for evaluation of L shoulder pain/injury - reports she was walking in her house this morning when her foot caught on a box and she tripped; she fell, twisting and landing on her L shoulder. Reports had excruciating pain in her L shoulder immediately - to the point where she was nauseated and had trouble getting up. Denies hitting her head or any LOC; denies injury to any other part of her body. No CP/SOB, rib pain, or pain with deep breaths. No new neck pain (reports she has history of chronic neck pain but it seems to be unchanged). Reports pain in her L shoulder has persisted since the injury without much change, but she became increasingly concerned d/t the swelling she has noticed. Pain scale currently 6/10 and achy at rest, but pain increases to 8-9/10 sharp pain with certain movements, especially trying to raise her arm. Reports pain is worst at the back and top of her shoulder. Denies any radiation of pain, and denies any neurovascular symptoms. Keeping her arm still seems to help relieve the discomfort. Has not taken any OTC medications for symptoms, but has applied ice, with some temporary improvement. No history of shoulder issues; no history of GI, liver, or kidney dysfunction. REVIEW OF SYSTEMS 10 systems reviewed negative with exception of history of present illness listed above PHYSICAL EXAMINATION General: Pleasant female; awake, alert, oriented to person, place, time/situation and in no apparent distress. Sitting comfortably on exam table; mild to moderate discomfort noted when removing her shirt for examination. Accompanied by her . Neck: Supple. No lymphadenopathy. FROM c-spine without limitation; cervical flexion causes pulling sensation in L shoulder. Respiratory: Lungs are clear to auscultation; no wheezes, rhonchi, or rales. Respirations unlabored and without reported discomfort, Breath sounds are equal, Symmetrical chest wall expansion. Cardiovascular: Regular rate and rh (more content not included)... Normal [facility] SHOULDER, CMPLT, MIN 2 VIEWS on 05-28-2022 SHOULDER, CMPLT, MIN 2 VIEWS Patient Name: NICOLA GAGNON STUDY: SHOULDER, CMPLT, MIN 2 VIEWS; 05/28/2022 1:31 pm INDICATION: Attn: clavicle and scapula. Pain in L shoulder s/p falling this AM. Swelling/prominence noted to superior portion of scapula and to clavicle. . COMPARISON: None. ACCESSION NUMBER(S): [id number] ORDERING CLINICIAN: ROSALINDA RINALDI TECHNIQUE: 5 views of the left shoulder including AP , AP internal rotation , Grashey, axillary and scapular Y-views were obtained. FINDINGS: There is no radiographic evidence of acute fracture or dislocation identified. The joint spaces are well preserved without significant degenerative changes. IMPRESSION: 1. No evidence of acute fracture or dislocation. Electronically signed by: DARSHAN ASHTON MD [facility] Coronavirus 2019 RNA by PCR, Screening Asymptomticon 10-05-2021 Coronavirus 2019 RNA by PCR, Screening Asymptomtic Not detected Normal See Below -[facility] Work Phone: Comment on above: SOURCE: Nasal, Nasop haryngealReference Range: Not Detected.This assay is designed to detect the N, ORF1ab and/or S genes of SARS-CoV-2 via nucleic acid amplification. A Negative (NOT DETECTED) result does not preclude 2019-nCoV infection since the adequacy of sample collection and/or low viral burden may result in presence of viral nucleic acids below the clinical sensitivity of this test method. Negative (NOT DETECTED) result should not be used as the sole basis for treatment or other patient management decisions. Rather negative results should be combined with clinical observations, patient history, and epidemiological information to make patient management decisions.Fact sheet for providers: https://www.fda.gov/media/913561/downloadFact sheet for patients: https://www.fda.gov/media/275203/downloadThis test has received FDA Emergency Use Authorization (EUA) and has been verified by [facility] ([facility]). This test is only authorized for the duration of time that circumstances exist to justify the authorization of the emergency use of in vitro diagnostic tests for the detection of SARS-CoV-2 virus and/or diagnosis of COVID-19 infection under section 564(b)(1) of the Act, 21 U.S.C. 360bbb-3(b)(1), unless the authorization is terminated or revoked sooner. [facility] is certified under CLIA-88 as qualified to perform high complexity testing. Testing is performed in the [facility] laboratories located at [address] [place] [address]. Laboratory - Chemistry and C hemistry - challengeon 06-01-2021 Albumin BCP dye [Mass/Vol] 4.2 g/dL 3.4 - 5.0 -[employer] [facility] Work Phone: ALP [Catalytic activity/Vol] 63 U/L 33 - 136 -[facility] Work Phone: ALT With P-5'-P [Catalytic activity/Vol] 17 U/L 7 - 45 [facility] Work Phone: [phone] Comment on above: Patients treated wit h Sulfasalazine may generate falsely decreased results for ALT. Anion gap [Moles/Vol] 12 mmol/L 10 - 20 [facility] Work Phone: AST With P-5'-P [Catalytic activity/Vol] 17 U/L 9 - 39 [facility] Work Phone: Bilirubin [Mass/Vol] 0.4 mg/dL 0.0 - 1.2 -[facility] Work Phone: Calcium [Mass/Vol] 9.2 mg/dL 8.6 - 10.3 -[facility] Work Phone: Chloride [Moles/Vol] 106 mmol/L 98 - 107 -[facility] Work Phone: CO2 [Moles/Vol] 26 mmol/L 21 - 32 [facility] Work Phone: [phone] Creatinine [Mass/Vol] 0.84 mg/dL See Below [facility] Work Phone: [phone] Comment on above: Reference Range: 0.5 0 - 1.05 Glucose [Mass/Vol] 65 mg/dL below low threshold 74 - 99 [facility] Work Phone: [phone] Potassium [Moles/Vol] 4.3 mmol/L 3.5 - 5.3 -[facility] Work Phone: Protein [Mass/Vol] 7.1 g/dL 6.4 - 8.2 -[employer] Work Phone: Sodium [Moles/Vol] 140 mmol/L 136 - 145 [facility] Work Phone: Urea nitrogen [Mass/Vol] 17 mg/dL 6 - 23 [facility] Work Phone: Laboratory - Hematology and Cell countson 06-01-2021 Erythrocyte distribution width (RBC) [Ratio] 13.6 % See Below [facility] Work Phone: [phone] Comment on above: Reference Range: 11. 5 - 14.5 Hematocrit (Bld) [Volume fraction] 44.6 % See Below [facility] Work Phone: [phone] Comment on above: Reference Range: 36. 0 - 46.0 Hemoglobin (Bld) [Mass/Vol] 14.3 g/dL See Below [facility] Work Phone: [phone] Comment on above: Reference Range: 12. 0 - 16.0 MCHC (RBC) [Mass/Vol] 32.0 g/dL See Below [facility] [employer] [facility] Work Phone: [phone] Comment on above: Reference Range: 32. 0 - 36.0 MCV (RBC) [Entitic vol] 91 fL 80 - 100 [facility] Work Phone: [phone] Platelets (Bld) [#/Vol] 352 10*3/uL 150 - 450 [facility] Work Phone: [phone] RBC (Bld) [#/Vol] 4.89 {x10E12/L} See Below [facility] Work Phone: [phone] Comment on above: Reference Range: 4.0 0 - 5.20 WBC (Bld) [#/Vol] 5.8 10*3/uL 4.4 - 11.3 [facility] Work Phone: [phone] Lipid Panelon 06-01-2021 Cholesterol [Mass/Vol] 259 mg/dL above high threshold 0 - 199 [facility] Work Phone: [phone] Comment on above: . AGE DESIRABLE BORD CARLOS HIGH HIGH 0-19 Y 0 - 169 170 - 199 >/= 200 20-24 Y 0 - 189 190 - 224 >/= 225 >24 Y 0 - 199 200 - 239 >/= 240 All ranges are based on fasting samples. Specific therapeutic targets will vary based on patient-specific cardiac risk.. Pediatric guidelines reference:Pediatrics 2011, 128(S5). Adult guidelines reference: NCEP ATPIII Guidelines, LORRIE 2001, 258:2486-97. Venipuncture immediately after or during the administration of Metamizole may lead to falsely low results. Testing should be performed immediately prior to Metamizole dosing. Cholesterol in HDL [Mass/Vol] 50.0 mg/dL [employer] [facility] Work Phone: Comment on above: . AGE VERY LOW LOW N ORMAL HIGH 0-19 Y < 35 < 40 40-45 ---- 20- 24 Y ---- < 40 >45 ---- >24 Y ---- < 40 40-60 >60. Cholesterol in LDL [Mass/Vol] 178 mg/dL above high threshold 0 - 99 [employer] [facility] Work Phone: Comment on above: . NEAR BORD AGE MARCY RABLE OPTIMAL HIGH HIGH VERY HIGH 0-19 Y 0 - 109 --- 110-129 >/= 130 ---- 20-24 Y 0 - 119 --- 120-159 >/= 160 ---- >24 Y 0 - 99 100-129 130-159 160-189 >/=190. Cholesterol.total/C holesterol in HDL [Mass ratio] 5.2 {ratio} Abnormal [employer] [facility] Work Phone: Comment on above: REF VALUESDESIRABLE < 3.4HIGH RISK > 5.0 Triglyceride [Mass/Vol] 153 mg/dL above high threshold 0 - 149 [employer] [facility] Work Phone: Comment on above: . AGE DESIRABLE BORD CARLOS HIGH HIGH VERY HIGH 0 D-90 D 19 - 174 ---- ---- ----91 D- 9 Y 0 - 74 75 - 99 >/= 100 ---- 10-19 Y 0 - 89 90 - 129 >/= 130 ---- 20-24 Y 0 - 114 115 - 149 >/= 150 ---- >24 Y 0 - 149 150 - 199 200- 499 >/= 500. Venipuncture immediately after or during the administration of Metamizole may lead to falsely low results. Testing should be performed immediately prior to Metamizole dosing. Lipid Panel 31 mg/dL 0 - 40 [employer] [facility] Work Phone: No Panel Informationon 06-01 >60 >60 [employer] [facility] Work Phone: Comment on above: CALCULATIONS OF CIPRIANO MATED GFR ARE PERFORMED USING THE MDRD STUDY EQUATION FOR THE IDMS-TRACEABLE CREATININE METHODS. CLIN CHEM 2007;53:766-72 TSH - Thyroid Stimulating Ho rmone, Serumon 06-01-2021 TSH Qn 2.92 m[IU]/L See Below [facility] [facility] Work Phone: Comment on above: Reference Range: 0.4 4 - 3.98 TSH testing is performed using different testing methodology at [facility] than at other [facility]. Direct result comparisons should only be made within the same method. Vitamin B12, Serumon 021 Cobalamin (Vitamin B12) [Mass/Vol] 1029 pg/mL above high threshold 211 - 911 [facility] [facility] Work Phone: Office Visit (Primary Care T xt/Forms)on 05-29-2021 Follow-up visit Diagnoses/Problems Health Maintenance/Risks Encounter for preventive health examination (V70.0) (Z00.00) Assessed Screening for colon cancer (V76.51) (Z12.11) Orders Health Maintenance Complete Blood Count; Status:Active; Requested for:[id number]; Comprehensive Metabolic Panel; Status:Active; Requested for:[id number]; Lipid Panel; Status:Active; Requested for:29May2021; TSH - Thyroid Stimulating Hormone, Serum; Status:Active; Requested for:29May2021; Vitamin B12, Serum; Status:Active; Requested for:[id number]; Screening for colon cancer Gastroenterology Referral Evaluation and Treatment Evaluate AND Treat Status: Hold For - Scheduling Requested for: 29May2021 SocHx: Non-smoker Tobacco Use Screening; Status:Complete; Done: [id number] Chief Complaint PHYSICAL History of Present Illness colon due 2019. will refer MMG done at [facility] yesterday at [facility] . COVID shot done Shingles [ zostivax done ], recommend yearly flu shot. a little chest pressure at rest. bikes and walks without inc CP. will watch. call or ER if gets worse. Review of Systems Constitutional: feeling tired, but not feeling poorly. Eyes: no eyesight problems and no blurry vision. ENT: ringing in ears, but no nasal discharge, no nasal congestion and normal hearing. Cardiovascular: chest pressure, but no chest pain and no palpitations. Respiratory: no cough and no dyspnea with exertion. Gastrointestinal: no constipation, no diarrhea, no nausea and no blood in stools. Genitourinary: normal urine frequency, no dysuria. Musculoskeletal: arthralgias, joint pain localized to one or more joints, joint stiffness and back pain. Integumentary: no skin lesions, no rashes, no breast lump, no breast pain and no nipple discharge. Neurological: dizziness and numbness/tingling, but no headache, no confusion, no memory change and no speech difficulty. Psychiatric: mood changes and sleep disturbances. Endocrine: weight change and Heat/Cold intolerance, but no hair thinning/loss and no increase in thirst. Active Problems Problems Migraines (346.90) (G43.909) Surgical History Problems History of Back surgery History of Cholecystectomy History of Knee surgery History of Lumpectomy History of Partial hysterectomy Family History Mother FHx: malignant neoplasm of breast (V16.3) (Z80.3) Father Family history of acute pancreatitis (V18.59) (Z83.79) Family history of chronic obstructive pulmonary disease (V17.6) (Z82.5) Son Family history of Bipolar depression Social History Problems Coffee Consumes alcohol occasionally (V49.89) (Z78.9) No advance directives (V49.89) (Z78.9) No illicit drug use Non-smoker (V49.89) (Z78.9) Current Meds Medication NameInstruction Aimovig 140 MG/ML Subcutaneous Solution Auto-injectorINJECT 140 MG ONCE A MONTH Fluticasone Propionate 50 MCG/ACT Nasal SuspensionInhale 1 spray in each nostril 2 times daily until directed to stop valACYclovir HCl - 1 GM Oral TabletTAKE 2 TABLETS BY MOUTH ONCE DAILY AND THEN TAKE 2 TABLETS BY MOUTH 12 HOURS AFTER INITIAL DOSE Venlafaxine HCl ER 150 MG Oral Capsule Extended Release 24 HourTake 1 capsule by mouth once daily. Vitamin B12 3000 MCG Sublingual Tablet Sublingual Vitamin D3 125 MCG (5000 UT) Oral Tablet Chewable Allergies Medication Penicillins Vitals Vital Signs Recorded: 29May2021 02:41PM Temperature: 97.1 F Heart Rate: 88 Systolic: 124 Diastolic: 80 Height: 5 ft 7 in Weight: 180 lb BMI Calculated: 28.19 kg/m2 BSA Calculated: 1.93 Tobacco Use: b) No Fall Screening: a) No falls within the last year O2 Saturation: 96 Physical Exam Constitutional - Well developed, well nourished, well hydrated and no acute distress. Vital signs reviewed. Eyes - Pupils equal, round, reactive to light. Extraocular movement normal. Ears, Nose, Mouth, and Throat - TM's normal color, normal landmarks, no fluid, non-retracted. External auditory canals without swelling, redness or tenderness. Hearing: Normal. Neck - Full range of motion. No significant adenopathy. Thyroid not enlarged and no palpable nodules. Pulmonary - No grunting, flaring or retractions. No rales or wheezing. Good air exchange. Cardiovascular - Regular rate and rhythm. No significant murmur. Abdomen - Soft, non-tender, no masses. No hepatomegaly or splenomegaly. Musculoskeletal - Gait and station: Normal. Muscle strength and tone are normal. Skin - No significant rash or lesions. Neurologic - Cranial nerves 2-12 grossly intact. Coordination: Normal. Cortical function: Normal. Psychiatric - Judgment and insight: Intact. Mood and affect: Normal. Alert and oriented x 3. Recent and remote memory: Normal. Signatures Electronically signed by : Sergio Navas MD; May 29 2021 3:12PM EST (Author) Normal [facility] Tobacco Screening.on 021 Fall risk assessment a) No falls within the last year [facility] Work Phone: Tobacco use status CP b) No [facility] Work Phone: Auto Diffon 08-29-2017 Basophils Auto #/vol (Bld) 0.0 E3/mcL Normal 0.0-0.2 [facility] Comment on above: Order Comment: Order Added by Discern Expert. Performed By: #### 2 [id number] ####ADIN FlowersNbaBytl[address] [place] [address] Basophils/100 WBC Auto (Bld) 0.4 % Normal 0.0-2.0 [facility] Comment on above: Order Comment: Order Added by Discern Expert. Performed By: #### 2 [id number] ####ADIN FlowersJuxXyam[address] [place] [address] Eos Absolute 0.1 E3/mcL Normal 0.0-0.7 [facility] Comment on above: Order Comment: Order Added by Discern Expert. Performed By: #### 2 [id number] ####ADIN FlowersAboBggx232[address] [place] [address] Eosinophils/100 leukocytes 0.9 % Normal 0.0-11.0 [facility] Comment on above: Order Comment: Order Added by Discern Expert. Performed By: #### 2 026846 ####ADIN FlowersUrbRtuz[address] [place] [address] Lymphocytes 1.6 E3/mcL Normal 1.2-3.4 [facility] Comment on above: Order Comment: Order Added by Discern Expert. Performed By: #### 2 605012 ####ADIN FlowersSlkKmtp1243 [place] [address] Lymphocytes/100 leukocytes 16.1 % Low 20.0-55.0 [facility] Comment on above: Order Comment: Order Added by Discern Expert. Performed By: #### 2 663184 ####ADIN FlowersJtnEfnx33[address] [place] [address] [place] Absolute 0.8 E3/mcL High 0.0-0.7 [facility] Comment on above: Order Comment: Order Added by Discern Expert. Performed By: #### 2 366931 ####ADIN FlowersUnpEmgb[address] [place] [address] Monocytes/100 leukocytes 8.1 % Normal 0.0-10.0 [facility] Comment on above: Order Comment: Order Added by Discern Expert. Performed By: #### 2 248312 ####ADIN FlowersYviKpkf[address] [place] [address] Neutro Absolute 7.4 E3/mcL High 1.4-6.5 [facility] Comment on above: Order Comment: Order Added by Discern Expert. Performed By: #### 2 185577 ####ADIN FlowersCbyInki[address] [place] [address] Neutro Auto 74.5 % Normal 37.0-75.0 [facility] Comment on above: Order Comment: Order Added by Discern Expert. Performed By: #### 2 599756 ####ADIN Quinteroo[address] [place] [address] CBC w/ Auto Diffon Erythrocyte distribution width Auto Ratio (RBC) 13.2 % Normal 11.5-14.5 [facility] Comment on above: Performed By: #### 2 493556 ####ADIN [address] [place] [address]005 Erythrocytes (RBC) 4.81 E6/mcL Normal 3.90-5.40 [facility] Comment on above: Performed By: #### 2 368156 ####ADIN [address] [place] [address] Hematocrit (HCT) 42.4 % Normal 36.0-48.0 [facility] Comment on above: Performed By: #### 2 956016 ####ADIN [address] [place] [address] Hemoglobin mass conc (Bld) 14.0 g/dL Normal 12.0-16.0 [facility] Comment on above: Performed By: #### 2 344108 ####ADIN [address] [place] [address] MCH 29.2 pg Normal 27.0-31.0 [facility] Comment on above: Performed By: #### 2 283498 ####ADIN FlowersVruUygu26[address] [place] [address] MCHC mass conc (RBC) 33.1 g/dL Normal 33.0-37.0 [facility] Comment on above: Performed By: #### 2 602486 ####ADIN FlowersLpaIqdt[address] [place] [address] MCV 88.2 fL Normal 78.0-100.0 [facility] Comment on above: Performed By: #### 2 682657 ####ADIN [address] [place] [address] Platelet mean volume (PMV) 7.9 fL Normal 7.4-11.0 [facility] Comment on above: Performed By: #### 2 701995 ####ADIN [address] [place] [address] Platelets 366 E3/mcL Normal 130-400 [facility] Comment on above: Performed By: #### 2 424095 ####ADIN [address] [place] [address] WBC (Leukocytes) 9.9 E3/mcL Normal 3.6-11.0 [facility] Comment on above: Performed By: #### 2 832889 ####ADIN [address] [place] [address] CMPon 08-29-2017 Alanine aminotransferase (ALT) 14 Int._Unit/L Normal 10-40 [facility] Comment on above: Performed By: #### 2 035238 ####ADIN Bui[address] [place] [address] Albumin 3.8 g/dL Normal 3.2-5.0 [facility] Comment on above: Performed By: #### 2 398911 ####ADIN [address] [place] [address] Albumin/Globulin Ratio 1.1 {ratio} Normal 1.1-1.9 [facility] Comment on above: Performed By: #### 2 229507 ####ADIN SbpOrbe[address] [place] [address] Alk Phos 68 Int._Unit/L Normal 42-121 [facility] Comment on above: Performed By: #### 2 606759 ####ADIN FlowersAstTzqa[address] [place] [address] Aspartate aminotransferase (AST) 14 Int._Unit/L Normal 10-42 [facility] Comment on above: Performed By: #### 2 359059 ####ADIN EzxXboh60[address] [place] [address] Bili Total 0.4 mg/dL Normal 0.2-1.0 [facility] Comment on above: Performed By: #### 2 180556 ####ADIN [address] [place] [address] BUN/Creatinine Ratio 16.7 ratio Normal 5.4-30.0 [facility] Comment on above: Performed By: #### 2 672399 ####ADIN UeyCnqe[address] [place] [address] Creatinine 0.9 mg/dL Normal 0.6-1.3 [facility] Comment on above: Performed By: #### 2 817191 ####ADIN UuzNkqr[address] [place] [address] Globulin 3.5 g/dL Normal 2.0-4.0 [facility] Comment on above: Performed By: #### 2 596594 ####ADIN QhfJjqy9472 [place] [address] Protein 7.3 g/dL Normal 6.4-8.3 [facility] Comment on above: Performed By: #### 2 483518 ####ADIN KcfQdsj39[address] [place] [address] Urea nitrogen 15 mg/dL Normal 7-18 [facility] Comment on above: Performed By: #### 2 495647 ####ADIN EakJzso[address] [place] [address] Calcium 8.8 mg/dL Normal 8.4-10.2 [facility] Comment on above: Performed By: #### 2 031780 ####ADIN QzdZbil7960 [place] [address] Chloride 110 mmol/L High 98-107 [facility] Comment on above: Performed By: #### 2 880693 ####ADIN SdqIgzd0221 [place] [address] CO2 22.2 mmol/L Low 24.0-30.0 [facility] Comment on above: Performed By: #### 2 969820 ####ADIN QxjZsqk9[address] [place] [address] Glucose mass conc 92 mg/dL Normal 70-[address] [facility] Comment on above: Performed By: #### 2 156656 ####ADIN AcxOcpo1738 [place] [address] Potassium molar conc 4.1 mmol/L Normal 3.5-5.1 [facility] Comment on above: Performed By: #### 2 071011 ####ADIN PskHjvp1587 [place] [address] Sodium 138 mmol/L Normal 136-145 [facility] Comment on above: Performed By: #### 2 657802 ####ADIN FqnQets2400 [place] [address] Lipase Levelon 08-29-2017 Lipase Lvl 42 U/L Normal 8-57 [facility] Comment on above: Performed By: #### 2 003637 ####ADIN JneRdiu4[address] [place] [address] Lipid Profileon 08-29-2017 Cholesterol 213 mg/dL High 50-200 [facility] Comment on above: Result Comment: TOTA L CHOLEESTEROL: <200 NORMAL 200 - 239 BORDERLINE HIGH >240 HIGH Performed By: #### 3 [id number] ####ADINMarcus BuiQzqTkht25[address] [place] [address] Cholesterol in VLDL mass conc 37 mg/dL Normal [facility] Comment on above: Performed By: #### 3 [id number] ####ADIN MduBliy37[address] [place] [address] HDL Cholesterol 34 mg/dL Low >=41 [facility] Comment on above: Performed By: #### 3 [id number] ####ADIN GwqNirw7810 [place] [address] LDL Cholesterol 142 mg/dL High 0-130 [facility] Comment on above: Result Comment: <100 [id number] NEAR / ABOVE EBINOUG133- 159 BORDERLINE [id number] HIGH>190 VERY HIGHCALC LDL NOT VALID WHEN TRIGLYCERIDE IS >400 MG/DL Performed By: #### 3 [id number] ####ADINMarcus FlowersXzpNrmg2226 [place] [address] Triglyceride 187 mg/dL High 35-150 [facility] Comment on above: Result Comment: <150 [id number] BORDERLINE [id number] HIGH>500 VERY HIGH Performed By: #### 3 [id number] ####ADINMarcus FlowersFsjFbze4805 [place] [address] TSHon 08-29-2017 Thyroid stimulating hormone (TSH) 2.17 mIU/m Normal 0.30-5.60 [facility] Comment on above: Performed By: #### 2 806949 ####ADIN ZlpAdur[address] [place] [address] XR Abdomen Acute (PA Chest)o n 08-29-2017 XR Abdomen Acute (PA Chest) Exam Date/Time:08/29/2017 12:25 EDTReason for Exam:Abdominal distentionReportACUTE ABDOMINAL SERIES WITH CHEST X-RAYHISTORY: Abdominal pain.Comparison: None.FINDINGS: The lungs are clear and the costophrenic angles are sharp. There isno infiltrate, effusion, or pneumothorax seen.There is air and stool seen scattered throughout the colon. There is noevidence for free air or air-fluid levels present.IMPRESSION:No acute cardiopulmonary disease.No evidence of obstruction or ileus. FINAL REPORT Dictated: 08/29/2017 2:39 pm Nader Mosley MD GSigned (Electronic Signature): 08/29/2017 2:39 pmSigned by: Nader Mosley MD Technologist: TRD Normal [facility] eGFRon 08-29-2017 eGFR (non-black) mL/min/{1.73_m2} Normal [facility] Comment on above: Order Comment: Order added by Discern Expert. Performed By: #### 1 [id number] ####ADIN FctNziv[address] [place] [address] Vital Signs Date Time Vital Sign Value Performing Clinician Facility 04-08-2025 10: Body height 170.2 cm Nicola Mark MD Work Phone: [facility] 04-08-2025 10:040 Body mass index (BMI) [Ratio] 22.8 kg/m2 Nicola Mark MD Work Phone: [facility] 04-08-2025 10:21040 Body weight 66.04 kg Nicola Mark MD Work Phone: [facility] 04-08-2025 10:21040 Diastolic blood pressure 66 mm[Hg] Nicola Mark MD Work Phone: [facility] 04-08-2025 10:21-0400 Heart rate 99 /min Nicola Mark MD Work Phone: [facility] 04-08-2025 10:21-0400 SaO2% (BldA) [Mass fraction] 99 % Nicola Mark MD Work Phone: [facility] 04-08-2025 10:21-0400 Systolic blood pressure 120 mm[Hg] Nicola Mark MD Work Phone: [facility] 03-07-2025 13:43-0400 Body height 170.2 cm Sunitha Luisa MEDICAL RECEPTION SPECIALIST-PACKAGING SALES CONSULTANT Work Phone: [facility] 03-07-2025 13:43-0400 Body mass index (BMI) [Ratio] 22.99 kg/m2 Sunitha Luisa MEDICAL RECEPTION SPECIALIST-PACKAGING SALES CONSULTANT Work Phone: [employer] [facility] [facility] 03-07-2025 13:43-0400 Body weight 66.59 kg Sunitha Luisa MEDICAL RECEPTION SPECIALIST-PACKAGING SALES CONSULTANT Work Phone: [employer] [facility] 03-07-2025 13:43-0400 Diastolic blood pressure 76 mm[Hg] Sunitha Luisa MEDICAL RECEPTION SPECIALIST-PACKAGING SALES CONSULTANT Work Phone: [employer] [facility] 03-07-2025 13:43-0400 Heart rate 96 /min Sunitha Luisa MEDICAL RECEPTION SPECIALIST-PACKAGING SALES CONSULTANT Work Phone: [employer] [facility] 03-07-2025 13:43-0400 Respiratory rate 16 /min Sunitha Luisa MEDICAL RECEPTION SPECIALIST-PACKAGING SALES CONSULTANT Work Phone: [employer] [facility] 03-07-2025 13:43-0400 SaO2% (BldA) [Mass fraction] 96 % Sunitha Luisa MEDICAL RECEPTION SPECIALIST-PACKAGING SALES CONSULTANT Work Phone: [employer] [facility] 03-07-2025 13:43-0400 Systolic blood pressure 118 mm[Hg] Sunitha Luisa MEDICAL RECEPTION SPECIALIST-PACKAGING SALES CONSULTANT Work Phone: [employer] [facility] 03-02-2025 22:01-0400 Diastolic blood pressure 79 mm[Hg] Avg [facility] 1 [facility] 03-02-2025 22:01-0400 Heart rate 95 /min Avg [facility] 03-02-2025 22:01-0400 SaO2% (BldA) [Mass fraction] 97 % Avg [facility] 1 [facility] 03-02-2025 22:01-0400 Systolic blood pressure 126 mm[Hg] Avg [facility] 1 [facility] 01-29-2025 21:52-0400 Diastolic blood pressure 85 mm[Hg] Avg [facility] 3 [facility] 01-29-2025 21:52-0400 [facility] rate 92 /[facility] 01-29-2025 21:52-0400 SaO2% (BldA) [Mass fraction] 97 % [facility] [address] [facility] 01-29-2025 21:52-0400 Systolic blood pressure 130 mm[Hg] Avg [facility] 3 [facility] 01-10-2025 09:09-0500 Body height 170.[address] Nicola Mark MD Work Phone: [facility] 01-10-2025 09:09-0500 Body mass index (BMI) [Ratio] 23.7 kg/m2 Dr. Nicola Mark MD Work Phone: [facility] 01-10-2025 09:09-0500 Body weight 68.[address] Nicola Mark MD Work Phone: [facility] 01-03-2025 10:59-0500 Body height 170.2 cm Sunitha Luisa MEDICAL RECEPTION SPECIALIST-PACKAGING SALES CONSULTANT Work Phone: [facility] 01-03-2025 10:59-0500 Body mass index (BMI) [Ratio] 23.74 kg/m2 Sunitha Luisa MEDICAL RECEPTION SPECIALIST-PACKAGING SALES CONSULTANT Work Phone: [facility] 01-03-2025 10:59-0500 Body weight 68.77 kg Sunitha Luisa MEDICAL RECEPTION SPECIALIST-PACKAGING SALES CONSULTANT Work Phone: [employer] [facility] 01-03-2025 10:59-0500 Diastolic blood pressure 68 mm[Hg] Sunitha Luisa MEDICAL RECEPTION SPECIALIST-PACKAGING SALES CONSULTANT Work Phone: [employer] [facility] 01-03-2025 10:59-0500 Heart rate 89 /min Sunitha Luisa MEDICAL RECEPTION SPECIALIST-PACKAGING SALES CONSULTANT Work Phone: [employer] [facility] 01-03-2025 10:59-0500 Respiratory rate 16 /min Sunitha Luisa MEDICAL RECEPTION SPECIALIST-PACKAGING SALES CONSULTANT Work Phone: [employer] [facility] 01-03-2025 10:59-0500 SaO2% (BldA) [Mass fraction] 94 % Sunitha Luisa MEDICAL RECEPTION SPECIALIST-PACKAGING SALES CONSULTANT Work Phone: [facility] Comment on above: RA 01-03-2025 10:59-0500 Systolic blood pressure 102 mm[Hg] Sunitha Luisa MEDICAL RECEPTION SPECIALIST-PACKAGING SALES CONSULTANT Work Phone: [facility] 01-02-2025 08:34-0500 Body height 170.2 cm [facility] 01-02-2025 08:34-0500 Body mass index (BMI) [Ratio] 23.18 kg/m2 [facility] 01-02-2025 08:34-0500 Body weight 67.13 kg [facility] 12-27-2024 08:34-0500 Body height 170.2 cm Nicola Mark MD Work Phone: [facility] 12-27-2024 08:34-0500 Body mass index (BMI) [Ratio] 24.12 kg/m2 Nicola Mark MD Work Phone: [facility] 12-27-2024 08:34-0500 Body weight 69.85 kg Nicola Mark MD Work Phone: [facility] 12-27-2024 08:34-0500 Diastolic blood pressure 72 mm[Hg] Nicola Mark MD Work Phone: [facility] 12-27-2024 08:34-0500 Heart rate 87 /min Nicola Mark MD Work Phone: [facility] 12-27-2024 08:34-0500 SaO2% (BldA) [Mass fraction] 96 % Nicola Mark MD Work Phone: [facility] 12-27-2024 08:34-0500 Systolic blood pressure 122 mm[Hg] Nicola Mark MD Work Phone: [facility] 12-10-2024 08:54-0500 Body mass index (BMI) [Ratio] 24.28 kg/m2 Nickolasandriy Choe MEDICAL RECEPTION SPECIALIST-PACKAGING SALES CONSULTANT Work Phone: [facility] 12-10-2024 08:54-0500 Body weight 70.31 kg Nickolas [place] MEDICAL RECEPTION SPECIALIST-PACKAGING SALES CONSULTANT Work Phone: [facility] 12-10-2024 08:54-0500 Diastolic blood pressure 79 mm[Hg] Nickolas Choe MEDICAL RECEPTION SPECIALIST-PACKAGING SALES CONSULTANT Work Phone: [facility] 12-10-2024 08:54-0500 Heart rate 89 /min Nickolas Choe MEDICAL RECEPTION SPECIALIST-PACKAGING SALES CONSULTANT Work Phone: [facility] 12-10-2024 08:54-0500 Respiratory rate 16 /min Nickolas Choe MEDICAL RECEPTION SPECIALIST-PACKAGING SALES CONSULTANT Work Phone: [facility] 12-10-2024 08:54-0500 Systolic blood pressure 114 mm[Hg] Nickolas Andradeley MEDICAL RECEPTION SPECIALIST-PACKAGING SALES CONSULTANT Work Phone: [facility] 11-16-2024 14:12-0500 Diastolic blood pressure 69 mm[Hg] [address] 11-16-2024 14:12-0500 Heart rate 82 /min [address] 11-16-2024 14:12-0500 Respiratory rate 16 /min [address] 11-16-2024 14:12-0500 SaO2% (BldA) [Mass fraction] 95 % [address] 11-16-2024 14:12-0500 Systolic blood pressure 132 mm[Hg] [address] 11-16-2024 13:46-0500 Body temperature 98.01 [degF] [address] 11-16-2024 13:00-0500 Body height 170.[address] 11-16-2024 13:00-0500 Body mass index (BMI) [Ratio] 24.12 kg/m2 [address] 11-16-2024 13:00-0500 Body weight 69.[address] 10-23-2024 07:58-0500 Diastolic blood pressure 71 mm[Hg] Nickolas Andradeley MEDICAL RECEPTION SPECIALIST-PACKAGING SALES CONSULTANT Work Phone: [facility] 10-23-2024 07:58-0500 Heart rate 98 /min Nickolas Andradeley MEDICAL RECEPTION SPECIALIST-PACKAGING SALES CONSULTANT Work Phone: [facility] 10-23-2024 07:58-0500 Respiratory rate 16 /min Nickolas Andradeley MEDICAL RECEPTION SPECIALIST-PACKAGING SALES CONSULTANT Work Phone: [facility] 10-23-2024 07:58-0500 Systolic blood pressure 122 mm[Hg] Nickolas [place] MEDICAL RECEPTION SPECIALIST-PACKAGING SALES CONSULTANT Work Phone: [facility] 10-09-2024 17:30-0500 Diastolic blood pressure 74 mm[Hg] Jason Bonilla DO Work Phone: [facility] 10-09-2024 17:30-0500 Heart rate 82 /min Jason Bonilla DO Work Phone: [facility] 10-09-2024 17:30-0500 Respiratory rate 17 /min Jason Bonilla DO Work Phone: [facility] 10-09-2024 17:30-0500 SaO2% (BldA) [Mass fraction] 97 % Jason Bonilla DO Work Phone: [facility] 10-09-2024 17:30-0500 Systolic blood pressure 126 mm[Hg] Jason Bonilla DO Work Phone: [facility] 10-09-2024 16:36-0500 Body height 170.2 cm Jason Bonilla DO Work Phone: [facility] 10-09-2024 16:36-0500 Body mass index (BMI) [Ratio] 26.16 kg/m2 Jason Bonilla DO Work Phone: [facility] 10-09-2024 16:36-0500 Body temperature 97 [degF] Jason Bonilla DO Work Phone: [facility] 10-09-2024 16:36-0500 Body weight 75.75 kg Jason Bonilla DO Work Phone: [facility] 10-02-2024 12:57-0500 Body mass index (BMI) [Ratio] 26.16 kg/m2 Nickolas Choe MEDICAL RECEPTION SPECIALIST-PACKAGING SALES CONSULTANT Work Phone: [facility] 10-02-2024 12:57-0500 Body weight 75.75 kg Nickolas Choe MEDICAL RECEPTION SPECIALIST-PACKAGING SALES CONSULTANT Work Phone: [facility] 10-02-2024 12:57-0500 Diastolic blood pressure 82 mm[Hg] Nickolas Choe MEDICAL RECEPTION SPECIALIST-PACKAGING SALES CONSULTANT Work Phone: [facility] 10-02-2024 12:57-0500 Heart rate 86 /min Nickolas Choe MEDICAL RECEPTION SPECIALIST-PACKAGING SALES CONSULTANT Work Phone: [facility] 10-02-2024 12:57-0500 Respiratory rate 16 /min Nickolas Choe MEDICAL RECEPTION SPECIALIST-PACKAGING SALES CONSULTANT Work Phone: [facility] 10-02-2024 12:57-0500 Systolic blood pressure 128 mm[Hg] Nickolas Choe MEDICAL RECEPTION SPECIALIST-PACKAGING SALES CONSULTANT Work Phone: [facility] 09-25-2024 10:52-0500 Body height 170.2 cm Nicola Mark MD Work Phone: [facility] 09-25-2024 10:52-0500 Body mass index (BMI) [Ratio] 26.09 kg/m2 Nicola Mark MD Work Phone: [facility] 09-25-2024 10:52-0500 Body weight 75.57 kg Nicola Mark MD Work Phone: [facility] 09-25-2024 10:52-0500 Diastolic blood pressure 86 mm[Hg] Nicola Mark MD Work Phone: [facility] 09-25-2024 10:52-0500 Heart rate 85 /min Nicola Mark MD Work Phone: [facility] 09-25-2024 10:52-0500 SaO2% (BldA) [Mass fraction] 96 % Nicola Mark MD Work Phone: [facility] 09-25-2024 10:52-0500 Systolic blood pressure 110 mm[Hg] Nicola Mark MD Work Phone: [facility] 06-19-2024 13:12-0400 Body height 170.2 cm Nicola Mark MD Work Phone: [facility] 06-19-2024 13:12-0400 Body mass index (BMI) [Ratio] 27.6 kg/m2 Nicola Mark MD Work Phone: [facility] 06-19-2024 13:12-0400 Body weight 79.92 kg Nicola Mark MD Work Phone: [facility] 06-19-2024 13:12-0400 Diastolic blood pressure 74 mm[Hg] Nicola Mark MD Work Phone: [facility] 06-19-2024 13:12-0400 Heart rate 85 /min Nicola Mark MD Work Phone: [facility] 06-19-2024 13:12-0400 SaO2% (BldA) [Mass fraction] 96 % Nicola Mark MD Work Phone: [facility] 06-19-2024 13:12-0400 Systolic blood pressure 120 mm[Hg] Nicola Mark MD Work Phone: [facility] 01-19-2024 08:24-0400 Body height 170.2 cm Sergio Navas MD Work Phone: [facility] 01-19-2024 08:24-0400 Body mass index (BMI) [Ratio] 28.11 kg/m2 Sergio Navas MD Work Phone: [facility] 01-19-2024 08:24-0400 Body weight 81.42 kg Sergio Navas MD Work Phone: [facility] 01-19-2024 08:24-0400 Diastolic blood pressure 72 mm[Hg] Sergio Navas MD Work Phone: [facility] 01-19-2024 08:24-0400 Heart rate 85 /min Sergio Navas MD Work Phone: [facility] 01-19-2024 08:24-0400 SaO2% (BldA) [Mass fraction] 92 % Sergio Navas MD Work Phone: [facility] 01-19-2024 08:24-0400 Systolic blood pressure 118 mm[Hg] Sergio Navas MD Work Phone: [facility] 09-16-2023 14:21-0500 Body height 170.2 cm Sergio Navas MD Work Phone: [facility] 09-16-2023 14:21-0500 Body mass index (BMI) [Ratio] 28.83 kg/m2 Sergio Navas MD Work Phone: [facility] 09-16-2023 14:21-0500 Body weight 83.51 kg Sergio Navas MD Work Phone: [facility] 09-16-2023 14:21-0500 Diastolic blood pressure 90 mm[Hg] Sergio Navas MD Work Phone: [facility] 09-16-2023 14:21-0500 Heart rate 88 /min Sergio Navas MD Work Phone: [facility] 09-16-2023 14:21-0500 SaO2% (BldA) [Mass fraction] 95 % Sergio Navas MD Work Phone: [facility] 09-16-2023 14:21-0500 Systolic blood pressure 140 mm[Hg] Sergio Navas MD Work Phone: [facility] 08-19-2023 10:55-0400 Body height 171.5 cm Sara Navarrete APRN.PACKAGING SALES CONSULTANT Work Phone: [facility] 08-19-2023 10:55-0400 Body weight 82.1 kg Sara Navarrete APRN.PACKAGING SALES CONSULTANT Work Phone: [facility] 08-19-2023 10:55-0400 Diastolic blood pressure 80 mm[Hg] Sara Navarrete APRN.PACKAGING SALES CONSULTANT Work Phone: [facility] 08-19-2023 10:55-0400 Systolic blood pressure 124 mm[Hg] Sara Navarrete APRN.PACKAGING SALES CONSULTANT Work Phone: [facility] 05-29-2021 14:41-0400 Body height 170.18 cm Sergiopetar [place] Work Phone: [facility] Work Phone: 05-29-2021 14:41-0400 Body mass index (BMI) [Ratio] 28.19 kg/m2 Sergiopetar [place] Work Phone: [facility] Work Phone: 05-29-2021 14:41-0400 Body surface area Derived from formula 1.93 m2 Sergiopetar [place] Work Phone: [facility] Work Phone: 05-29-2021 14:41-0400 Body temperature 97.1 [degF] Sergio [place]order[place] Work Phone: [facility] Work Phone: 05-29-2021 14:41-0400 Body weight 81.65 kg Sergio Naavs Work Phone: [employer] [facility] Work Phone: 05-29-2021 14:41-0400 Diastolic blood pressure 80 mm[Hg] Sergio Navas Work Phone: [employer] [facility] Work Phone: 05-29-2021 14:41-0400 Heart rate 88 /min Sergio Navas Work Phone: [employer] [facility] Work Phone: 05-29-2021 14:41-0400 SaO2% (BldA) [Mass fraction] 96 % Sergio Navas Work Phone: [employer] [facility] Work Phone: 05-29-2021 14:41-0400 Systolic blood pressure 124 mm[Hg] Sergio Navas Work Phone: [employer] [facility] Work Phone: Encounters Encounter Date Encounter Type Care Provider Facility Start: 04-10-2025 ambulatory [facility] Facility:[facility] Start: 04-09-2025 Encounter for other preprocedural examination [facility] Start: 04-08-2025 End: 04-08-2025 Patient encounter procedure Nicola Mark MD Work Phone: [facility] Comment on above: Routine general medi sandra examination at a health care facility (Primary Dx); Advanced care planning/counseling discussion; Screening for alcohol problem; Moderate mixed hyperlipidemia not requiring statin therapy; Preop examination Start: 04-08-2025 End: 04-08-2025 Patient encounter status Nicola Mark MD Work Phone: [facility] Work Phone: Start: 04-08-2025 End: 04-08-2025 Preprocedural examination done Nicola Mark MD Work Phone: [facility] Work Phone: Start: 04-08-2025 End: 04-08-2025 ambulatory [facility] Ambulatory Start: 04-08-2025 End: 04-08-2025 Encounter for general adult medical examination without abnormal findings [facility]ulatory Start: 04-08-2025 End: 04-08-2025 Encounter for other preprocedural examination [facility] Start: 04-02-2025 End: 04-02-[address] Be Macias MD -[facility] Work Phone: Start: 04-02-2025 End: 04-02-[address] Nicola Mark MD Work Phone: [facility] Work Phone: Start: 04-02-2025 End: 04-02-2025 ambulatory Nicola Mark Facility:[facility] Start: 03-07-2025 End: 03-07-2025 Office outpatient visit 25 minutes Sunitha Moran MEDICAL RECEPTION SPECIALIST-PACKAGING SALES CONSULTANT Work Phone: [facility] Pulmonary Disease [facility] Comment on above: Obstructive sleep ap kim (Primary Dx); Sleep related hypoxia; Snoring; Insomnia, unspecified type; Fatigue, unspecified type; Hypersomnia, unspecified; Morning headache; Non-restorative sleep; Encounter to discuss test results; Encounter for review of form with patient Start: 03-07-2025 ambulatory NICOLA Delgado MARK [facility] Start: 03-02-2025 End: 03-04-2025 Clinical Support Encounter Sunitha Moran MEDICAL RECEPTION SPECIALIST-PACKAGING SALES CONSULTANT Work Phone: [email or web address] [facility] Comment on above: BABATUNDE (obstructive sle ep apnea) (Primary Dx); Obstructive sleep apnea; Sleep related hypoxia; Snoring; Insomnia, unspecified type; Fatigue, unspecified type; Hypersomnia, unspecified; Morning headache; Non-restorative sleep Start: 03-02-2025 ambulatory [facility] Jenniffer LUISA [facility] Start: 01-29-2025 End: 01-30-2025 Clinical Support Encounter Sunitha Rashidion MEDICAL RECEPTION SPECIALIST-PACKAGING SALES CONSULTANT Work Phone: [facility] Comment on above: Obstructive sleep ap kim (Primary Dx); Sleep related hypoxia; Snoring; Insomnia, unspecified type; Fatigue, unspecified type; Hypersomnia, unspecified; Morning headache; Non-restorative sleep Start: 01-29-2025 ambulatory SUNITHA Abad [facility] Start: 01-10-2025 End: 01-10-[address] Be Macias MD -[facility] Work Phone: Start: 01-10-2025 End: 01-10-2025 ambulatory Be Macias Facility:[facility] Start: 01-04-2025 End: 01-04-2025 Subsequent hospital visit by physician Rad External [employer] [facility] [employer] [facility] Comment on above: Arrived Start: 01-04-2025 End: 01-04-2025 ambulatory NICOLA MARK [facility] Start: 01-03-2025 End: 01-03-2025 Office outpatient new 45 minutes Sunitha Jenniffer [facility] MEDICAL RECEPTION SPECIALIST-PACKAGING SALES CONSULTANT Work Phone: [facility] Pulmonary Disease [facility] Comment on above: Obstructive sleep ap kim (Primary Dx); Sleep related hypoxia; Snoring; Insomnia, unspecified type; Fatigue, unspecified type; Hypersomnia, unspecified; Morning headache; Encounter to discuss test results; Non-restorative sleep Start: 01-03-2025 ambulatory NICOLA MARK [facility] Start: 01-02-2025 End: 01-02-2025 Subsequent hospital visit by physician Adrian [id number] [place] [address] Comment on above: Breast cancer screen ing by mammogram Start: 01-02-2025 End: 01-02-2025 [facility] Start: 12-27-2024 End: 12-27-2024 Office outpatient visit 25 minutes Nicola Mark MD Work Phone: [facility] Comment on above: Nasal congestion (Pr imary Dx); Primary insomnia; Breast cancer screening by mammogram Start: 12-27-2024 End: 12-27-2024 ambulatory NICOLA MARK [facility] Ambulatory Start: 12-10-2024 End: 12-10-2024 Office outpatient visit 15 minutes Nickolas Choe MEDICAL RECEPTION SPECIALIST-PACKAGING SALES CONSULTANT Work Phone: [facility] Comment on above: Neck pain (Primary D x); Foraminal stenosis of cervical region; Arthropathy of cervical facet joint; Cervical radiculopathy Start: 12-10-2024 End: 12-10-2024 Transcribe Orders Nickolas Choe PACKAGING SALES CONSULTANT Work Phone: [facility] Comment on above: Foraminal stenosis o f cervical region (Primary Dx); Cervical radiculopathy Start: 11-16-2024 End: 11-16-2024 Subsequent hospital visit by physician Luis Andrade DO Work Phone: [facility] [place] Comment on above: Cervical radiculopat hy Start: 11-16-2024 End: 11-16-2024 ambulatory LUIS ANDRADE [facility] Start: 10-23-2024 End: 10-23-2024 Office outpatient visit 25 minutes Nickolas Choe MEDICAL RECEPTION SPECIALIST-PACKAGING SALES CONSULTANT Work Phone: [facility] Comment on above: Cervical radiculopat hy (Primary Dx); Arthropathy of cervical facet joint; Foraminal stenosis of cervical region Start: 10-23-2024 End: 10-23-2024 ambulatory NICKOLAS CHOE [facility] Start: 10-17-2024 End: 10-17-2024 ambulatory NICOLA Natarajan [facility] Start: 10-15-2024 End: 10-15-2024 ambulatory NICOLA Natarajan [facility] Start: 10-12-2024 End: 10-12-2024 Subsequent hospital visit by physician [facility] Comment on above: Cervical radiculopat hy Start: 10-12-2024 End: 10-12-2024 ambulatory NICKOLAS CHOE [facility] Start: 10-10-2024 End: 10-10-2024 ambulatory ARGENIS OTOOLE [facility] Start: 10-09-2024 End: 10-10-2024 ambulatory JASON BONILLA [facility] Start: 10-09-2024 End: 10-09-2024 Subsequent hospital visit by physician Adrian Moralesv1 [employer] [facility] Comment on above: Arrived Start: 10-09-2024 End: 10-09-2024 Emergency department patient visit Jason Bonilla DO Work Phone: [facility] Comment on above: Chest pain, unspecif ied type (Primary Dx) Start: 10-08-2024 End: 10-08-2024 ambulatory NICOLA Natarajan [facility] Start: 10-02-2024 End: 10-02-2024 Office outpatient new 45 minutes Nickolas Choe MEDICAL RECEPTION SPECIALIST-PACKAGING SALES CONSULTANT Work Phone: [facility] Comment on above: Cervical radiculopat hy (Primary Dx); Neck pain; Arthropathy of cervical facet joint Start: 10-02-2024 End: 10-02-2024 ambulatory NICKOLAS CHOE [facility] Start: 09-28-2024 End: 09-28-2024 ambulatory YVES PAYAN [facility] Start: 09-27-2024 End: 09-27-2024 Subsequent hospital visit by physician Adrian Lagunas 1 [facility] Comment on above: Neck pain Start: 09-27-2024 End: 09-27-2024 ambulatory NICOLA [facility] Start: 09-25-2024 End: 09-25-2024 Office outpatient visit 25 minutes Nicola Mark MD Work Phone: [facility] Comment on above: Obstructive sleep ap kim syndrome (Primary Dx); Neck pain Start: 09-25-2024 End: 09-25-2024 ambulatory NICOLA Natarajan [facility] Ambulatory Start: 08-20-2024 End: 08-20-2024 ambulatory NICOLA MARK [facility] Start: 06-19-2024 End: 06-19-2024 Office outpatient visit 25 minutes Nicola Mark MD Work Phone: [facility] Comment on above: Sweating abnormality (Primary Dx); Need for prophylactic vaccination against diphtheria and tetanus; Screening for diabetes mellitus; Screening, lipid; Other disturbances of skin sensation Start: 06-19-2024 End: 06-19-2024 ambulatory [facility] Ambulatory Start: 01-19-2024 End: 01-19-2024 Office outpatient visit 15 minutes Sergio Navas MD Work Phone: [facility] Comment on above: Obstructive sleep ap kim syndrome (Primary Dx) Start: 09-16-2023 End: 09-16-2023 Assay of hemosiderin, quant Sergio Navas MD Work Phone: [facility] Work Phone: Start: 09-16-2023 End: 09-16-2023 Patient encounter procedure Sergio Navas MD Work Phone: [facility] Comment on above: Routine general medi sandra examination at [facility] care facility (Primary Dx); Obstructive sleep apnea syndrome; Fatigue, unspecified type Start: 08-23-2023 Documentation procedure Mammog landon Coordinator [facility] Start: 08-23-2023 Letter encounter Mammography Coordinator [facility] Start: 08-23-2023 End: 08-23-2023 ambulatory SARA NAVARRETE Facility:[facility] Start: 08-23-2023 End: 08-23-2023 Subsequent hospital visit by physician Screen Mammo [facility] Comment on above: Encounter for gyneco logic examination for high-risk patient covered by Medicare [Z91.89] Start: 08-19-2023 End: 08-19-2023 ambulatory SARA NAVARRETE Facility:[facility] Start: 08-19-2023 End: 08-19-2023 Patient encounter procedure Sara Navarrete APRN.PACKAGING SALES CONSULTANT Work Phone: OB/Gynecology Comment on above: Encounter for gyneco logic examination for high-risk patient covered by Medicare (Primary Dx); Encounter for screening mammogram for breast cancer; Dense breast tissue; Hot flashes, menopausal; Asymptomatic postmenopausal state; Situational depression; Encounter for screening for osteoporosis Start: 04-10-2023 Refill Sara Navarrete AP RN.PACKAGING SALES CONSULTANT Work Phone: OB/Gynecology Comment on above: Refill Request Start: 10-07-2021 COLON, Provider: Jony Cam, Status: Pen, Time: 1:30 PM Sergio Navas Work Phone: [facility] Work Phone: Start: 10-06-2021 Chart Update Sergio Cardenas Furn ess Work Phone: [facility] Work Phone: Start: 06-11-2021 Refill Broderick P Baron Jenniffer Agudelo Work Phone: Neurology Comment on above: Refill Request Start: 06-01-2021 Chart Update Sergio chery Work Phone: -[facility] Work Phone: Start: 05-29-2021 Periodic preventive med est patient 40-64yrs Sergio Navas Work Phone: -[facility] Work Phone: Start: 09-15-2017 End: 09-16-2017 Ambulatory Sergio Navas Facility:[facility] Start: 08-30-2017 End: 08-31-2017 Ambulatory Sergio T Furness Facility:[facility] Start: 08-29-2017 End: 08-30-2017 Ambulatory Sergio T Furness Facility:[facility] Procedures Date Procedure Procedure Detail Performing Clinician Start: 03-02-2025 SLEEP STUDY (SCANNED) T iffini D Luisa MEDICAL RECEPTION SPECIALIST-PACKAGING SALES CONSULTANT Work Phone: Start: 01-29-2025 SLEEP STUDY PSG Sunitha D Luisa MEDICAL RECEPTION SPECIALIST-PACKAGING SALES CONSULTANT Work Phone: Start: 01-10-2025 X-ray of cervical spine Dr. Nicola Mark MD Work Phone: Start: 01-04-2025 End: 01-04-2025 Study Interpretation of outside study Nicola Mark MD Work Phone: Start: 01-02-2025 Mammography Rad Film Start: 11-16-2024 FL PAIN MANAGEMENT Emperatriz Choe MEDICAL RECEPTION SPECIALIST-PACKAGING SALES CONSULTANT Work Phone: Start: 11-16-2024 Njx dx/ther sbst int rlmnr crv/thrc w/img gdn Nickolas Choe MEDICAL RECEPTION SPECIALIST-PACKAGING SALES CONSULTANT Work Phone: Start: 10-12-2024 Mri spinal canal cer vical w/o contrast matrl Nickolas Choe MEDICAL RECEPTION SPECIALIST-PACKAGING SALES CONSULTANT Work Phone: Start: 10-09-2024 Assay of troponin quantitative Jason Bonilla DO Work Phone: Start: 10-09-2024 Radiologic exam ches t single view Jason Bonilla DO Work Phone: Start: 10-09-2024 End: 10-09-2024 Comprehensive metabolic panel Jason Bonilla DO Work Phone: Start: 10-09-2024 Troponin I.cardiac p gonzales - Serum or Plasma by High sensitivity method Jason Bonilla DO Work Phone: Start: 10-09-2024 Ecg routine ecg w/le ast 12 lds trcg only w/o i&r Jason Bonilla DO Work Phone: Start: 08-20-2024 Lipid 1996 panel - S kika or Plasma Nicola Mark MD Work Phone: Start: 08-23-2023 End: 08-23-2023 Screening digital breast tomosynthesis bi Sara Navarrete MEDICAL RECEPTION SPECIALIST.PACKAGING SALES CONSULTANT Work Phone: Start: 10-07-2021 Colonoscopy Sergio holly MD Work Phone: Start: 06-01-2021 Lipid 1996 panel - S kika or Plasma Sergio Navas MD Work Phone: Start: 05-28-2021 Mammography Broderick DO Work Phone: Start: 07-04-2020 Adult depression scr eening assessment Broderick Baltazar DO Work Phone: Start: 01-27-2015 Colonoscopy Broderick Baltazar DO Work Phone: Start: 11-19-2013 Lipid 1996 panel - S kika or Plasma Sara Navarrete APRN.PACKAGING SALES CONSULTANT Work Phone: Cholecystectomy Sergio Cardenas Fu rness Work Phone: Lumpectomy of breast Sergio T Furness Work Phone: Operative procedure on knee Sergio T Furness Work Phone: Partial hysterectomy Sergio T Furness Work Phone: Procedure on back Sergio T Furness Work Phone: Plan of Treatment Date Care Activity Detail Author Start: 2033 RSV High Risk: (Elde rly (60+) or Population) (1 - 1-dose 75+ series) RSV High Risk: (Elderly (60+) or Population) (1 - 1-dose 75+ series) [facility] Start: 2033 RSV VACCINE (1 - 1-d ose 75+ series) RSV VACCINE (1 - 1-dose 75+ series) [email or web address] Start: 10-07-2031 Screening for malign ant neoplasm of colon [facility] Start: 08-20-2029 Lipid panel Lipid Panel [facility] Start: 06-01-2026 Lipid panel Lipid Panel [facility] Start: 04-09-2026 Medicare Annual Well ness Visit Medicare Annual Wellness Visit (AWV) [facility] Start: 01-02-2026 Screening for malign ant neoplasm of breast Mammogram [facility] Start: 08-22-2025 End: 08-22-2025 Patient encounter procedure 08/22/2025 10:20 AM EDT Office Visit [place] [address] [id number] Nicola Mark MD [facility] [address] [facility] Start: 07-08-2025 Influenza vaccination INFLUENZ A VACCINE (Season Ended) [facility] Start: 06-20-2025 End: 06-20-2025 Patient encounter procedure 06/20/2025 3:30 PM EDT Office Visit [facility] Pul[facility] Disease [facility] [address] [facility] [address] [place] [address] Sunitha Moran, MEDICAL RECEPTION SPECIALIST-PACKAGING SALES CONSULTANT [address] [place] [address] [facility] Pulmonary Disease [facility] Start: 04-08-2025 End: 04-08-2026 Lipid 1996 panel - Serum or Plasma Lipid Panel Lab Routine Moderate mixed hyperlipidemia not requiring statin therapy Expected: 04/08/2025 (Approximate), Expires: 04/08/2026 [facility] Service Area Work Phone: Comment on above: Expected: 04/08/2025 (Approximate), Expires: 04/08/2026 Start: 04-08-2025 End: 04-08-2025 Patient encounter procedure 04/08/2025 10:20 AM EDT Office Visit [place] [address] [phone] Nicola Mark MD [address] [facility] Start: 04-04-2025 End: 04-04-2025 Patient encounter procedure [facility] Pulmonary Disease [facility] Start: 03-07-2025 End: 03-07-2025 Patient encounter procedure 03/07/2025 1:45 PM EDT Office Visit [facility] [address] [facility] [address] [place] [address] Sunitha Moran, MEDICAL RECEPTION SPECIALIST-PACKAGING SALES CONSULTANT [address] [place] [address] [facility] Pulmonary Disease [facility] Start: 01-02-2025 Subsequent hospital visit by physician 01/02/2025 8:30 AM EST Hospital Encounter [facility] [address] [place] [address] [facility] Start: 12-27-2024 End: 02-24-2026 DBT Breast - bilateral BI mammo bilateral screening tomosynthesis Imaging Routine Breast cancer screening by mammogram Expected: 12/27/2024, Expires: 02/24/2026 [facility] Area Work Phone: Comment on above: Expected: 12/27/2024 , Expires: 02/24/2026 Start: 12-27-2024 End: 12-27-2024 Patient encounter procedure 12/27/2024 8:40 AM EST Office Visit [place] [address] [phone] Nicola Mark MD [address] [facility] Start: 12-10-2024 End: 12-10-2024 Patient encounter procedure 12/10/2024 9:00 AM EST Office Visit [facility] [address] [place] [address] Nickolas Choe, MEDICAL RECEPTION SPECIALIST-PACKAGING SALES CONSULTANT [address] [place] [address] [facility] Start: 10-24-2024 End: 10-24-2024 ambulatory [facility] Start: 10-23-2024 End: 10-23-2025 Epidural steroid injection Epidural Steroid Injection Pain Management Routine Cervical radiculopathy Expected: 10/23/2024, Expires: 10/23/2025 [facility] Work Phone: Comment on above: Expected: 10/23/2024 , Expires: 10/23/2025 Start: 10-23-2024 End: 10-23-2025 FL pain management FL pain management Imaging Routine Cervical radiculopathy Expected: 10/23/2024 (Approximate), Expires: 10/23/2025 [facility] Service Area Work Phone: Comment on above: Expected: 10/23/2024 (Approximate), Expires: 10/23/2025 Start: 10-22-2024 End: 10-22-2024 ambulatory 10/22/2024 7:45 AM EST Treatment [facility] [place] [address] Alphonso Martinez, MAP AND CHART MOUNTER [address] [place] [place] [address] [facility] Start: 10-17-2024 End: 10-17-2024 ambulatory 10/17/2024 7:45 AM EST Treatment [address] [place] [address] Alphonso Martinez, MAP AND CHART MOUNTER [address] [place] [address] [facility] Start: 10-15-2024 End: 10-15-2024 ambulatory 10/15/2024 7:45 AM EST Treatment [address] [place] [address] Alphonso Martinez, MAP AND CHART MOUNTER [address] [facility] [place] [id number] [facility] Start: 10-12-2024 End: 10-12-2024 Patient encounter procedure 10/12/2024 8:00 AM EST Appointment [address] [phone] [facility] Start: 10-10-2024 End: 10-10-2024 ambulatory 10/10/2024 10:45 AM EST Treatment [address] [place] [address] Argenis Otoole, MAP AND CHART MOUNTER [address] [place] [address] [facility] Start: 10-10-2024 End: 10-10-2024 ambulatory 10/10/2024 7:45 AM EST Treatment [facility] [address] [place] [phone] Alphonso Martinez, MAP AND CHART MOUNTER [address] [facility] [place] [address] [facility] Start: 10-08-2024 End: 10-08-2024 ambulatory 10/08/2024 7:45 AM EST Treatment [address] [phone] Alphonso Martinez, MAP AND CHART MOUNTER [address] [facility] Rehab [place] [phone] [facility] Start: 10-02-2024 End: 10-02-2025 MR Cervical spine WO contrast MR cervical spine wo IV contrast Imaging Routine Cervical radiculopathy Expected: 10/02/2024, Expires: 10/02/2025 [facility] Service Area Work Phone: Comment on above: Expected: 10/02/2024 , Expires: 10/02/2025 Start: 10-02-2024 End: 10-02-2024 Patient encounter procedure 10/02/2024 1:00 PM EST Office Visit [facility] Medical Office Building [address] [facility] 2nd [place] [phone] Nickolas Choe, MEDICAL RECEPTION SPECIALIST-PACKAGING SALES CONSULTANT [address] [place] [id number] [facility] Building Start: 09-28-2024 End: 09-28-2024 ambulatory [facility] Start: 09-25-2024 End: 09-25-2024 Patient encounter procedure 09/25/2024 11:00 AM EST Office Visit [address] [phone] Nicola Mark MD [address] [place] [address] [facility] Start: 09-17-2024 Medicare Annual Well ness Visit Medicare Annual Wellness Visit (AWV) [facility] Start: 08-23-2024 Mammography Mammogram Screening [facility] Start: 08-23-2024 Screening for malign ant neoplasm of breast [facility] Start: 08-23-2024 Screening for osteoporosis DEXA SCAN DISCUSSION [facility] Start: 07-08-2024 COVID-19 Vaccine ( season) COVID-19 Vaccine () [facility] Start: 07-08-2024 Influenza vaccination Influenza Vacc ine (#1) [facility] Start: 07-07-2024 DIABETES SCREEN DIABETES SCREEN [facility] Start: 07-07-2024 Diabetes Screening Diabetes Screenin g [facility] Start: 06-19-2024 End: 06-19-2025 CBC panel - Blood by Automated count CBC Lab Routine Sweating abnormality Expected: 06/19/2024 (Approximate), Expires: 06/19/2025 [facility] Service Area Work Phone: Comment on above: Expected: 06/19/2024 (Approximate), Expires: 06/19/2025 Start: 06-19-2024 End: 06-19-2025 Comprehensive metabolic 2000 panel - Serum or Plasma Comprehensive Metabolic Panel Lab Routine Sweating abnormality Screening for diabetes mellitus Expected: 06/19/2024 (Approximate), Expires: 06/19/2025 [facility] Work Phone: Comment on above: Expected: 06/19/2024 (Approximate), Expires: 06/19/2025 Start: 06-19-2024 End: 06-19-2025 Lipid 1996 panel - Serum or Plasma Lipid Panel Lab Routine Screening, lipid Expected: 06/19/2024 (Approximate), Expires: 06/19/2025 [facility] Work Phone: Comment on above: Expected: 06/19/2024 (Approximate), Expires: 06/19/2025 Start: 06-19-2024 End: 06-19-2025 Thyrotropin [Units/volume] in Serum or Plasma Thyroid Stimulating Hormone Lab Routine Sweating abnormality Other disturbances of skin sensation Expected: 06/19/2024 (Approximate), Expires: 06/19/2025 [facility] Work Phone: Comment on above: Expected: 06/19/2024 (Approximate), Expires: 06/19/2025 Start: 11-19-2023 DTaP/Tdap/Td Vaccine s (2 - Td or Tdap) DTaP/Tdap/Td Vaccines (2 - Td or Tdap) [facility] Start: 11-19-2023 Tetanus vaccination [facility] Start: 11-19-2023 Urine microalbumin profile [facility] Start: 09-16-2023 End: 09-16-2024 CBC panel - Blood by Automated count CBC Lab Routine Fatigue, unspecified type Expected: 09/16/2023 (Approximate), Expires: 09/16/2024 [facility] Service Area Work Phone: Comment on above: Expected: 09/16/2023 (Approximate), Expires: 09/16/2024 Start: 09-16-2023 End: 09-16-2024 Comprehensive metabolic 2000 panel - Serum or Plasma Comprehensive Metabolic Panel Lab Routine Fatigue, unspecified type Expected: 09/16/2023 (Approximate), Expires: 09/16/2024 [facility] Work Phone: Comment on above: Expected: 09/16/2023 (Approximate), Expires: 09/16/2024 Start: 09-16-2023 End: 09-16-2024 Home sleep apnea test (HSAT) Home sleep apnea test (HSAT) Sleep Center Routine Obstructive sleep apnea syndrome Expected: 09/16/2023 (Approximate), Expires: 09/16/2024 [facility] Work Phone: Comment on above: Expected: 09/16/2023 (Approximate), Expires: 09/16/2024 Start: 09-16-2023 End: 09-16-2024 Magnesium [Mass/volume] in Serum or Plasma Magnesium Lab Routine Fatigue, unspecified type Expected: 09/16/2023 (Approximate), Expires: 09/16/2024 [facility] Work Phone: Comment on above: Expected: 09/16/2023 (Approximate), Expires: 09/16/2024 Start: 09-16-2023 End: 09-16-2024 Thyrotropin [Units/volume] in Serum or Plasma Thyroid Stimulating Hormone Lab Routine Fatigue, unspecified type Expected: 09/16/2023 (Approximate), Expires: 09/16/2024 [facility] Work Phone: Comment on above: Expected: 09/16/2023 (Approximate), Expires: 09/16/2024 Start: 07-08-2023 Covid-19 Vaccine () Covid-19 Vaccine () [facility] Start: 07-08-2023 Influenza vaccination C [facility] Start: 2023 Advance Directive Discussion Advance Directive Discussion [facility] Start: 2023 Bone Density Screening Bone Density Screening [facility] Start: 2023 Pneumococcal Vaccine : 65+ (1 - PCV) Pneumococcal Vaccine: 65+ (1 - PCV) [facility] Start: 2023 Pneumococcal Vaccine : 65+ Years (1 - PCV) Pneumococcal Vaccine: 65+ Years (1 - PCV) [facility] Start: 11-07-2022 DEPRESSION ASSESSMENT DEPRESSION ASS ESSMENT [facility] Start: 10-07-2022 Screening for malign ant neoplasm of colon COLORECTAL CANCER SCREENING DISCUSSION [facility] Start: 05-28-2022 Mammography [facility] Start: 07-08-2021 Influenza vaccination INFLUENZA (#1) [facility] Start: 07-07-2021 COLON, Provider: Jony Cam, Status: Pen, Time: 1:00 PM COLON, Provider: Jony Cam, Status: Pen, Time: 1:00 PM [facility] Work Phone: Start: 07-04-2021 Adult depression screening assessment DEPRESSION SCREENING [facility] Start: 06-18-2021 COVID-19 VACCINE (3 - Booster for Moderna series) COVID-19 VACCINE (3 - Booster for Moderna series) [facility] Start: 03-13-2021 COVID-19 VACCINE (3 - Booster for Moderna series) COVID-19 VACCINE (3 - Booster for Moderna series) [facility] Start: 03-13-2021 COVID-19 Vaccine (3 - Moderna series) COVID-19 Vaccine (3 - Moderna series) [facility] Start: 01-28-2020 Colonoscopy COLONOSCOPY [facility] Start: 01-28-2020 COLORECTAL CANCER SCREENING COLORECTAL CANCER SCREENING [facility] Start: 11-19-2018 Lipid 1996 panel - S kika or Plasma Lipid Screening [facility] Start: 11-19-2018 LIPID SCREEN LIPID SCREEN [facility] Start: 2018 RSV High Risk: (Elde rly (60+) or Population) (1 - Risk 60-74 years 1-dose series) RSV High Risk: (Elderly (60+) or Population) (1 - Risk 60-74 years 1-dose series) [facility] Start: 2018 RSV patient s and/or patients aged 60+ years (1 - 1-dose 60+ series) RSV patients and/or patients aged 60+ years (1 - 1-dose 60+ series) [facility] Start: 2018 RSV Vaccine (1 - 1-d ose 60+ series) RSV Vaccine (1 - 1-dose 60+ series) [facility] Start: 09-13-2016 Shingrix Vaccine (2 of 3) Guzman grix Vaccine (2 of 3) [facility] Start: 09-13-2016 Zoster vaccine hzv l shaina for subcutaneous use ZOSTER (SHINGLES) VACCINE (2 of 3) [facility] Start: 09-13-2016 Zoster Vaccines (2 of 3) Zoster Vacc marie (2 of 3) [facility] Start: 08-16-2016 MMR Vaccines (1 of 1 - Standard series) MMR Vaccines (1 of 1 - Standard series) [facility] Start: 2008 SHINGRIX VACCINE (1 of 2) GUZMAN GRIX VACCINE (1 of 2) [facility] Start: 2003 COLOGUARD (FIT-DNA) COLOGUARD (FIT-D NA) [facility] Start: [address] COLONOGRAPHY [facility] Start: 2003 FECAL OCCULT BLOOD FECAL OCCULT BLOO D [facility] Start: 2003 SIGMOIDOSCOPY SIGMOIDOSCOPY [facility] Start: 1998 Lipid panel LIPID SCREENING [facility] Start: 1979 Screening for malign ant neoplasm of cervix [facility] Start: 1976 Diabetes mellitus screening Diabetes Screening [facility] Start: 1976 HEPATITIS C SCREENING HEPATITIS C [facility] Start: 1976 Hepatitis C screening Hepatitis C Sc [facility] Start: 1976 HIV SCREENING HIV SCREENING [facility] Start: 1958 Annual wellness visit Medicare Initial Physical (IPPE) [facility] Start: 1958 Hepatitis C screening HEPATITI S C VIRUS SCREENING [facility] Start: 1958 Medicare Annual Well ness Visit Medicare Annual Wellness Visit (AWV) [facility] Start: 1958 Screening for malign ant neoplasm of colon [facility] End: 01-02-2025 DBT Breast - bilateral [facility] Service Area Work Phone: Comment on above: Once for 1 Occurrenc es starting 01/02/2025 until 01/02/2025 End: 09-17-2024 DXA-AXIAL SKELETON DXA-AXIAL SKELETON Radiology Routine Encounter for gynecologic examination for high-risk patient covered by Medicare Encounter for screening for osteoporosis Asymptomatic postmenopausal state 1 Occurrences starting 08/19/2023 until 09/17/2024 [facility] Work Phone: Comment on above: 1 Occurrences starti ng 08/19/2023 until 09/17/2024 End: 10-09-2024 ECG 12 lead [facility] Service Area Work Phone: Comment on above: Once for 1 Occurrenc es starting 10/09/2024 until 10/09/2024 End: 09-17-2024 LYRIC SCREENING W ANAYA LYRIC SCREENING W ANAYA Radiology Routine Encounter for gynecologic examination for high-risk patient covered by Medicare Encounter for screening mammogram for breast cancer Dense breast tissue 1 Occurrences starting 08/19/2023 until 09/17/2024 [facility] Work Phone: Comment on above: 1 Occurrences starti ng 08/19/2023 until 09/17/2024 Polysomnography SLEEP STUDY - DI AGNOSTIC PFT Routine Obstructive sleep apnea Sleep related hypoxia Snoring Insomnia, unspecified type Fatigue, unspecified type Hypersomnia, unspecified Morning headache Non-restorative sleep Ordered: 01/03/2025 [facility] Comment on above: Ordered: 01/03/2025 SLEEP STUDY - TITRATION SLEEP ST UDY - TITRATION PFT Routine Obstructive sleep apnea Sleep related hypoxia Snoring Insomnia, unspecified type Fatigue, unspecified type Hypersomnia, unspecified Morning headache Non-restorative sleep Ordered: 01/03/2025 [facility] Comment on above: Ordered: 01/03/2025 End: 09-27-2024 XR Cervical spine 4 or 5 Views [facility] Service Area Work Phone: Comment on above: Once for 1 Occurrenc es starting 09/27/2024 until 09/27/2024 [facility] Immunizations Immunization Date Immunization Notes Care Provider Flora patino 09-16-2023 Pneumococcal conjuga te vaccine, 20-valent (PREVNAR 20) Sergio Navas MD Work Phone: [facility] 01-16-2021 Moderna COVID-19 Vaccine 100 MCG/0.5ML Intramuscular Suspension Sergio Navas Work Phone: [facility] 12-19-2020 Moderna COVID-19 Vaccine 100 MCG/0.5ML Intramuscular Suspension Sergio Navas Work Phone: [facility] 12-11-2018 Influenza, injectabl e, Madin [place] Canine Kidney, preservative free, quadrivalent Sergio Navas Work Phone: [facility] Work Phone: 12-11-2018 influenza, injectabl e, quadrivalent, contains preservative Sergio Navas MD Work Phone: [facility] Work Phone: 12-11-2018 influenza virus vaccine, unspecified formulation Sara Navarrete APRN.CNP Work Phone: [facility] 12-01-2016 influenza, injectabl e, quadrivalent, contains preservative Sergio Navas MD Work Phone: [facility] Work Phone: 07-19-2016 zoster vaccine, live Sergio Ana M Navas Work Phone: [facility] Work Phone: Comment on above: Series: 07-19-2016 zoster vaccine, unspecified formulation Sunitha Moran MEDICAL RECEPTION SPECIALIST-PACKAGING SALES CONSULTANT Work Phone: [facility] 11-19-2013 tetanus toxoid, redu wes diphtheria toxoid, and acellular pertussis vaccine, adsorbed Broderick Baltazar DO Work Phone: [facility] 08-02-2013 influenza virus vaccine, whole virus Sergio [facility]as [facility] Work Phone: 07-30-2013 influenza virus vaccine, whole virus Sergio Navas MD Work Phone: [facility] Work Phone: 10-24-2009 novel [id number], preservative-free, injectable Sergio Navas Work Phone: [facility] Payers Date Payer Category Payer Self-pay 2023 Medicare [id number] 2023 Medicare (Managed Care) [id number] 2023 Medicare [id number] [address] [facility] [id number] 2021-Present [phone] [address] [address] [place] [address] O [id number] .[id number] 2021 [address] [facility] [id number] 2021-Present [phone] [address] [address] [place] [address] O [id number] .[id number] 2017 Unknown 1960 Unknown [id number] 2.16.840.1.609328.3.579 .2.1244 1958 Unknown [id number] 2.16.840.1.658744.3.579 .2.1244 1958 Unknown [id number] 2.16.840.1.092011.3.579 .2.1244 1958 Unknown [id number] 2.16.840.1.129713.3.579 .2. 1958 Unknown [id number] 2.16.840.1.024368.3.579 .2. 1958 Unknown [id number] 2.16.840.1.360064.3.579 .2.98 1958 Unknown [id number] 2.16.840.1.519325.3.579 .2. 1958 Unknown [id number] 2.16.840.1.753841.3.579 .2.1242 1958 Unknown [id number] 2.16.840.1.528214.3.579 .2.1242 1958 Unknown [id number] 2.16.840.1.797734.3.579 .2.1242 1958 Unknown [id number] 2.16.840.1.345360.3.579 .2.1242 1958 Unknown [id number] 2.16.840.1.283161.3.579 .2.1242 1958 Unknown [id number] 2.16.840.1.744246.3.579 .2.1242 1958 Unknown [id number] 2.16.840.1.003139.3.579 .2.1242 1958 Unknown [id number] 2.16.840.1.990464.3.579 .2.1242 1958 Unknown [id number] 2.16.840.1.220544.3.579 .2.1242 1958 Unknown [id number] 2.16.840.1.960781.3.579 .2.1242 1958 Unknown [id number] 2.16.840.1.610161.3.579 .2.1242 1958 Unknown [id number] 2.16.840.1.190897.3.579 .2.1242 1958 Unknown [id number] 2.16.840.1.712724.3.579 .2.1242 1958 Unknown [id number] 2.16.840.1.184391.3.579 .2.1242 1958 Unknown [id number] 2.16.840.1.498174.3.579 .2.1243 1958 Unknown [id number] 2.16.840.1.523077.3.579 .2.1243 1958 Unknown [id number] 2.16.840.1.240941.3.579 .2.1243 1958 Unknown [id number] 2.16.840.1.342874.3.579 .2.1243 Unknown [facility] [id number] Unknown [id number] 2.16.840.1.586204.3.579 .2.462 Unknown [id number] 2.16.840.1.077182.3.579 .2.462 Unknown [id number] 2.16.840.1.399327.3.579 .2.462 Unknown [id number] 2.16.840.1.753366.3.579 .2.462 Unknown [id number] 2.16.840.1.600393.3.579 .2.462 Social History Date Type Detail Facility Start: 11-19-2013 End: 04-08-2025 [facility] Start: 11-19-2013 End: 09-25-2024 Tobacco smoking status NHIS Ex-smoker [facility] Work Phone: Start: 11-07-1977 End: 04-30-2008 History of tobacco use Cigarette Smoker [facility] Work Phone: Start: 11-19-2013 End: 09-25-2024 Tobacco use and exposure Smokeless tobacco non-user [facility] Work Phone: Start: 05-26-2021 End: 04-08-2025 Alcohol intake Current drinker of alcohol (finding) [facility] Start: 11-19-2013 End: 01-03-2025 History SDOH Alcohol Comment social [facility] Start: 11-19-2013 End: 08-19-2023 Tobacco Comment 04/30/2008 [facility] Start: 1960 Sex Assigned At Female [facility] Start: 09-16-2021 End: 04-08-2025 Exposure to SARS-CoV-2 (event) Not sure [facility] Start: 11-07-1977 End: 04-30-2008 History of tobacco use Current smoker [facility] Work Phone: Start: 07-07-2021 Alcohol Comment occasionally - 5 drinks per week or less [facility] Start: 06-08-2023 End: 04-08-2025 Social connection and isolation panel [facility] Active Member of [facility] bs or Organizations Not on file [facility] Are you now , , , , never or living with a partner? [facility] How often to you hav e a drink containing alcohol? 2-4 times a month [facility] How many standard dr inks containing alcohol do you have on a typical day? 1 or 2 [facility] How often do you hav e 6 or more drinks on 1 occasion? Never [facility] Do you feel stress - tense, restless, nervous, or anxious, or unable to sleep at night because your mind is troubled all the time - these days [OSQ] To some extent [facility] (I/We) worried whebuddy er (my/our) food would run out before (I/we) got money to buy more. Never true [facility] In the past 12 month s, was there a time when you were not able to pay the mortgage or rent on time? No [facility] Start: 07-17-2019 Gender identity Identifies as female gender (finding) [facility] Start: 07-17-2019 Sexual orientation Heterosexual (finding) [facility] History of tobacco use [facility] Work [facility]: Start: 10-23-2024 Alcohol Comment occasionally [facility] Work Phone: Tobacco smoking stat [facility] Tobacco smoking consumption unknown [facility] Start: 1960 Sex assigned at Not on file [facility] Start: 11-12-2016 Sex Female (finding) [facility] Functional Status Date Assessment Result Facility 04-08-2025 Patient Health [facility] ionnaire 2 item (PHQ-2) [Reported] [facility] Work Phone: Clinical Notes 05-29-2021 to 04-08-2025 Nicola Mark MD - 04/08/2025 10:20 AM EDTPatient InstructionsTheresmarcus Guzmán - 03/07/2025 1:45 PM REN Narvaez - 03/07/2025 1:45 PM EDTDorie Ayala - 03/02/2025 8:00 PM EDT Note Date & Type Note Facility 04-08-2025 History of Present illness Narrative Subjective Reason for Visit: Nicola Mg Blairezuleima is an 64 y.o. female here for a Medicare Wellness visit. Past Medical, Surgical, and Family History reviewed and updated in chart. Reviewed all medications by prescribing practitioner or clinical pharmacist (such as prescriptions, OTCs, herbal therapies and supplements) and documented in the medical record. She was diagnosed with complex sleep apnea and will start a CPAP after surgery. Does not currently have surgery. She does occasionally use sleep aids. She is have ACDF C3-C6 done in 2 days. No chest pain, she does not experience shortness of breath going up stairs. Not currently sexually active. Does play pickelball without chest pain or shortness of breath, just sweating. If she were unable to make her own medical decisions she would want her sister Sarahi Calhoun to make them or her son Krishan Goddard. If she were in a permanent vegetative state she would not want to be kept alive by a ventilator or feeding tube. She would be okay with short term intubation in cases thought to be recoverable. At this point she would want to be resuscitated. She is not using alcohol but uses occasional marijuana gummies. Patient Care Team: Nicola Mark MD as PCP - General (Family Medicine) Sergio Navas MD as PCP - [employer] Medicare Advantage PCP Review of Systems Objective Vitals: BP 120/66 Pulse 99 Ht 1.702 m (5' 7) Wt 66 kg (145 lb 9.6 oz) SpO2 99% BMI 22.80 kg/m Physical Exam Vitals and nursing note reviewed. Constitutional: General: She is not in acute distress. Appearance: Normal appearance. HENT: Head: Normocephalic and atraumatic. Mouth/Throat: Mouth: Mucous membranes are moist. Eyes: General: No scleral icterus. Right eye: No discharge. Left eye: No discharge. Extraocular Movements: Extraocular movements intact. Conjunctiva/sclera: Conjunctivae normal. Cardiovascular: Rate and Rhythm: Normal rate and regular rhythm. Pulmonary: Effort: Pulmonary effort is normal. No respiratory distress. Breath sounds: Normal breath sounds. Musculoskeletal: Right lower leg: No edema. Left lower leg: No edema. Skin: General: Skin is warm and dry. Neurological: General: No focal deficit present. Mental Status: She is alert and oriented to person, place, and time. Psychiatric: Attention and Perception: Attention normal. Mood and Affect: Mood normal. Speech: Speech normal. Behavior: Behavior normal. Cognition and Memory: Cognition and memory normal. Judgment: Judgment normal. Assessment & Plan Routine general medical examination at a health care facility Personal health Plan: 1.I would recommend getting your shingles vaccine at the pharmacy. You get one now and one in 2-6 months. About 30% of people will feel unwell after the shot so I recommend getting it done on a day that you do not have important plans the next day. 2. TdaP 3. Obtain and start using your CPAP machine Advanced care planning/counseling discussion See above for discussion. [place] living will provided to patient. Screening for alcohol problem Moderate mixed hyperlipidemia not requiring statin therapy ASCVD less than 7.5% will recheck lipid with patients weight loss. Orders: Lipid Panel; Future Preop examination NSQIP risk calculator used and patient below average. Patient with no active chest pain/SOB. Discussed that ideally she would be optimized on CPAP therapy prior to surgery but she undrestands risks. Advance Directives Discussion 16 - 20 minutes were spent discussing Advanced Care Planning (including a Living Will, Medical Power Of Package Reinspector, as well as specific end of life choices and/or directives). The details of that discussion were documented in Advanced Directives Discussion section of the medical record. Alcohol Misuse Screen 5 - 10 minutes were spent screening the patient for alcohol misuse disorder. Nicola Mark MD documented in this encounter [facility] Work Phone: 04-08-2025 Instructions Nicola Mark MD - 04/08/2025 10:20 AM EDT Personal health Plan: 1.I would recommend getting your shingles vaccine at the pharmacy. You get one now and one in 2-6 months. About 30% of people will feel unwell after the shot so I recommend getting it done on a day that you do not have important plans the next day. 2. TdaP 3. Obtain and start using your CPAP machine documented in this encounter [facility] Work Phone: 03-07-2025 History of Present illness Narrative SLEEP Augusta Score -4 CPAP/BIPAP/APAP Pressure - no machine Neck Circumference - 13.5 inches Most Recent Sleep Study -10/22/23 Oxygen Use -no If so, how many liters and is it PRN, Nocturnal, or continuous? Patient is benefiting from PAP therapy--n/a DME - n/a Referred by-Dr. Mark Have you ever seen a sleep specialist (New Patient) - est Have you ever been treated for Sleep Apnea (New Patient) - yes Work Schedule-varies Sleep Schedule: Time to bed - 10 pm Average time to fall asleep - 2 hours Time up for the day - 7 am How many times a night do you wake up - 6 times Symptoms include : Snoring/snorting - yes Insomnia- yes Are you currently taking any OTC or prescription medications for insomnia - If so, What medications are you currently taking or previously been prescribed for insomnia? Ambien in past, has tried OTC medicine, nothing at present Daytime Sleepiness - yes Are you able to take naps during the day - no If so, how often? Do you experience tossing or turning at night? yes Restless legs - no If so, what medications are you currently taking or have previously been prescribed for RLS? Are you currently or have you previously been treated for ADHD, Narcolepsy, or Fatigue? - no If so, what medications are you currently taking or have previously been prescribed for ADHD, Narcolepsy, or Fatigue? Waking with gasping/shortness of breath - no Difficulty concentrate- sometimes Waking with headache- yes almost daily Significant weight change- lost 25 lbs in last year Have you ever been on medication management for weight loss, spoke with anyone about weight loss surgery/procedures, or have you had a surgical procedure to help with weight loss? no Pain 0-10- 7 If yes, Location-neck, low back Upcoming surgeries?-04/10/2025 fusion in neck Has witnessed apnea ( some body told patient that they stop breathing in their sleep) - yes Med Refills (that we prescribe) - n/a Patient here to go over PSG/Titration results. HPI: SUBJECTIVE: Nicola Gagnon is a 64 y.o. female being seen today for chronic sleep disorder follow up for continuity of medical care. Most recent sleep testing showed: PSG 01/2025: obstructive sleep apnea (AHI 8/hr, REM AHI 12/hr) with sleep related hypoxia (devi 83%) with PLMD noted (index 15) and problem is likely to result in a high risk morbidity without treatment. Titration completed which showed optimal starting pressure of CPAP 10 cmH2O which has been ordered. Previously noted 01/03/2025: Patient referred to sleep clinic by PCP to evaluate and treat for sleep disorder/sleep apnea with history of snoring, insomnia, migraines, BABATUNDE, sleep related hypoxia, fatigue. Most recent sleep testing showed: HST 10/2023: obstructive sleep apnea (AHI 13/hr) with sleep related hypoxia (devi 79%) and problem is likely to result in a high risk morbidity without treatment. Patient states she was set up on APAP therapy, however felt no one taught her how to use and was unable to tolerate, therefore she sent the machine back to [facility] approximately a year ago. She has been experiencing the following symptoms that could correlate with Sleep apnea: snoring, periods of not breathing, tossing and turning, restless legs, decreased memory, decreased concentration, excessive daytime sleepiness, feels sleepy during the day, morning headaches, morning dry mouth and maintaining sleep at times. At times she wakes up multiple times a night and does not always feel refreshed in the morning. She also reports sleepiness at times while reading. Patient denies other sleep concerns at today's appointment. Patient has neck surgery on April 10. History and Allergies Allergies Allergen Reactions Bupropion Hives Penicillins Hives and Rash No past medical history on file. Past Surgical History: Procedure Laterality Date BACK SURGERY 2009 HYSTERECTOMY 2004 CHOLECYSTECTOMY 1991 Social History Socioeconomic History Marital status: Spouse name: Not on file Number of children: Not on file Years of education: Not on file Highest education level: Not on file Occupational History Not on file Tobacco Use Smoking status: Former Types: Cigarettes Smokeless tobacco: Never Vaping Use Vaping status: Never Used Substance and Sexual Activity Alcohol use: Yes Comment: social Drug use: Never Sexual activity: Not on file Other Topics Concern Not on file Social History Narrative Not on file Social Drivers of Health Financial Resource Strain: Low Risk (06/08/2023) Received from [facility] Overall Financial Resource Strain (CARDIA) Difficulty of Paying Living Expenses: Not hard at all Food Insecurity: No Food Insecurity (06/08/2023) Received from [facility] Hunger Vital Sign Worried About Running Out of Food in the Last Year: Never true Ran Out of Food in the Last Year: Never true Transportation Needs: No Transportation Needs (06/08/2023) Received from [facility] PRAPARE - Transportation Lack of Transportation (Medical): No Lack of Transportation (Non-Medical): No Physical Activity: Insufficiently Active (06/08/2023) Received from [facility] Exercise Vital Sign Days of Exercise per Week: 3 days Minutes of Exercise per Session: 40 min Stress: Stress Concern Present (06/08/2023) Received from [facility] [place] [employer] Wall of Occupational Health - Occupational Stress Questionnaire Feeling of Stress : To some extent Social Connections: Socially Integrated (06/08/2023) Received from [facility] Social Connection and Isolation Panel [NHANES] Frequency of Communication with Friends and Family: More than three times a week Frequency of Social Gatherings with Friends and Family: More than three times a week Attends Evangelical Services: More than 4 times per year Active Member of Clubs or Organizations: Not on file Attends Club or Organization Meetings: More than 4 times per year Marital Status: Personal Safety: Not on file Housing Stability: Not on file Family History Problem Relation Age of Onset Breast Cancer Mother Other - Specify Father Colorectal Cancer Maternal Grandmother Diabetes Paternal Grandfather Vitals: 03/07/25 1343 BP: 118/76 Pulse: 96 Resp: 16 SpO2: 96% Weight: 66.6 kg (146 lb 12.8 oz) Height: 1.702 m (5' 7) Physical Examination Physical Exam Vitals and nursing note reviewed. Constitutional: General: She is not in acute distress. Appearance: She is well-developed. HENT: Head: Normocephalic and atraumatic. Right Ear: External ear normal. Left Ear: External ear normal. Eyes: General: Right eye: No discharge. Left eye: No discharge. Neck: Vascular: No JVD. Cardiovascular: Rate and Rhythm: Normal rate. Pulses: Normal pulses. Heart sounds: No murmur heard. No friction rub. No gallop. Pulmonary: Effort: Pulmonary effort is normal. No respiratory distress. Breath sounds: No wheezing. Musculoskeletal: General: No deformity. Normal range of motion. Cervical back: Normal range of motion and neck supple. Skin: General: Skin is warm and dry. Neurological: General: No focal deficit present. Mental Status: She is alert and oriented to person, place, and time. Psychiatric: Mood and Affect: Mood normal. Behavior: Behavior normal. Judgment: Judgment normal. SLEEP Augusta Score -4 CPAP/BIPAP/APAP Pressure - no machine Neck Circumference - 13.5 inches Most Recent Sleep Study -10/22/23 Oxygen Use -no If so, how many liters and is it PRN, Nocturnal, or continuous? Patient is benefiting from PAP therapy--n/a DME - n/a Referred by-Dr. Mark Have you ever seen a sleep specialist (New Patient) - est Have you ever been treated for Sleep Apnea (New Patient) - yes Work Schedule-varies Sleep Schedule: Time to bed - 10 pm Average time to fall asleep - 2 hours Time up for the day - 7 am How many times a night do you wake up - 6 times Symptoms include : Snoring/snorting - yes Insomnia- yes Are you currently taking any OTC or prescription medications for insomnia - If so, What medications are you currently taking or previously been prescribed for insomnia? Ambien in past, has tried OTC medicine, nothing at present Daytime Sleepiness - yes Are you able to take naps during the day - no If so, how often? Do you experience tossing or turning at night? yes Restless legs - no If so, what medications are you currently taking or have previously been prescribed for RLS? Are you currently or have you previously been treated for ADHD, Narcolepsy, or Fatigue? - no If so, what medications are you currently taking or have previously been prescribed for ADHD, Narcolepsy, or Fatigue? Waking with gasping/shortness of breath - no Difficulty concentrate- sometimes Waking with headache- yes almost daily Significant weight change- lost 25 lbs in last year Have you ever been on medication management for weight loss, spoke with anyone about weight loss surgery/procedures, or have you had a surgical procedure to help with weight loss? no Pain 0-10- 7 If yes, Location-neck, low back Upcoming surgeries?-04/10/2025 fusion in neck Has witnessed apnea ( some body told patient that they stop breathing in their sleep) - yes Med Refills (that we prescribe) - n/a Patient here to go over PSG/Titration results. CURRENT MEDICATIONS: Current Outpatient Medications Medication Sig Dispense Refill azelastine 0.1 % Solution nasal spray 1 spray Twice daily. Cyanocobalamin 100 MCG tablet Take 1 tablet by mouth daily. fexofenadine-pseudoephedrine 180-240 MG Tab SR 24 HR Take 1 tablet by mouth. Ibuprofen 200 MG tablet Take 2 tablets by mouth Every 6 hours as needed. Vitamin D3 125 MCG (5000 UT) per tablet Take 1 tablet by mouth daily. No current facility-administered medications for this visit. Lungs: Clear to auscultation bilaterally. Heart: Regular in rate and rhythm. Abd: Soft and non-distended. Skin: No obvious rashes or cyanosis. Neuro: Grossly non-focal examination. MS: No joint erythema/edema. ROS Reviewed. Interpretation of the sleep study result was reviewed and discussed with the patient during this visit Interpretation of sleep study and compliance report form was completed today and reviewed together with the patient during this visit. ASSESSMENT & PLAN: * BABATUNDE * Sleep Related Hypoxia * Overweight * PLMD/RLS * Hypersomnia * Fatigue * Snoring * Morning Headaches * Insomnia * Non-Restorative Sleep * Reviewed Test Results from PSG/Titration * Home PAP Use * Reviewed CPAP Compliance Form * Patient was advised to continue with positive pressure therapy at home once received. * Patient was advised to adhere to a regular sleep hygiene habits. * Reinforced: adverse consequences of BABATUNDE, compliance, wt loss, side sleeping if feasible, sleep hygiene (and avoid/minimize alcohol, sedative/respiratory depressant meds, nicotine/smoking cessation: quit), not driving/operating machinery while sleepy. 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 Advised patient to avoid activities that could harm self or others when tired/sleep, including driving and/or operating heavy machinery. Depending on polysomnography results: - Order PAP titration based on insurance requirements, if already on therapy continue therapy, or if symptomatic with high AHI complete another titration. - Will start/continue PAP therapy after results of PAP titration - I will have prescription sent to a [employer] company of choice- who will be calling patient in approximately 1-2 weeks to discuss setting them up on home PAP therapy, instruct them on how to use their PAP therapy and care for the machine - Patient should be eligible for new supplies approximately every 3-6 months, depending on your insurance coverage, DME company will inform patient of coverage - If patient mask does not fit well, contact DME company before 30 days are up to get a new mask without an additional charge - Insurance requires regular usage and periodic office follow ups for PAP therapy to continue to cover supplies, typically nightly use (70% of time)-greater than 4 hours within a 24 hour period (70% of the time) Insurance Requirements: - Your insurance requires a [id number] follow up visit within 31-90 days period after starting PAP therapy. - Your insurance requires compliance with PAP therapy, which is at least 4 hours per night for 70% of the time. This must be done over at least 30 day period and must occur within the intial 31-90 day period after starting PAP therapy. - Your insurance also requires at least a yearly follow up to continue to pay for PAP therapy and supplies. A total of 30 minutes were spent at this encounter, and this includes obtaining and/or reviewing separately obtained history , performing exam, review of previous tests and results, independently interpreting results of tests and communicating results to the patient/family/caregiver, ordering medications/tests/procedures, counseling the patient and/family on plan of care, referring/communicating with other health care clinician, as well as documenting the clinical information in the EHR. This includes face to face time and preparing to see the patient (review of tests) I personally reviewed selected chart notes, results, interpreted tests, imaging today before seeing the pt; reviewed and discussed w/ pt, questions answered. Portions of this chart were created using [employer] electronic dictation. Please excuse any typographical or grammatical errors contained herein as a result. Some Elements copied from previous notes. I have updated where appropriate, and all reflect current medical decision making from today's encounter. REN Goss documented in this encounter [facility] 03-02-2025 History of Present illness Narrative Patient arrived at 2014 escorted to room 4 Test completed The following is attached to the encounter: Test Data/Misc documented in this encounter [facility] 01-29-2025 History of Present illness Narrative Patient arrived 2120 and escorted to room 4. The following is attached to the encounter: Test Data/Misc documented in this encounter [facility] 01-10-2025 Evaluation note Diagnosis Onset Date Resolution Cervical radiculopathy acute [facility] 2024 8:50am Spondylolisthesis of cervical region acute January 10, 2025 8:50am [facility] Work Phone: [phone] 229-200702-27-2025 History of Present illness Narrative* Magali Caceres LPN - 01/03/2025 11:00 AM EST SLEEP [place] Score -3 CPAP/BIPAP/APAP Pressure - no machine Neck Circumference - 13.5 inches Most Recent Sleep Study -10/22/23 Oxygen Use -no If so, how many liters and is it PRN, Nocturnal, or continuous? Patient is benefiting from PAP therapy--n/a DME - n/a Referred by-Dr. Mark Have you ever seen a sleep specialist (New Patient) - yes Have you ever been treated for Sleep Apnea (New Patient) - yes Work Schedule-varies Sleep Schedule: Time to bed - 10 pm Average time to fall asleep - 2 hours Time up for the day - 7 am How many times a night do you wake up - 6 times Symptoms include : Snoring/snorting - yes Insomnia- yes Are you currently taking any OTC or prescription medications for insomnia - If so, What medications are you currently taking or previously been prescribed for insomnia? Ambienin past, has tried OTC medicine, nothing at present Daytime Sleepiness - yes Are you able to take naps during the day - no If so, how often? Do you experience tossing or turning at night? yes Restless legs - no If so, what medications are you currently taking or have previously been prescribed for RLS? Are you currently or have you previously been treated for ADHD, Narcolepsy, or Fatigue? - no If so, what medications are you currently taking or have previously been prescribed for ADHD, Narcolepsy, or Fatigue? Waking with gasping/shortness of breath - no, only when wearing CPAP Difficulty concentrate- sometimes Waking with headache- yes almost daily Significant weight change- lost 25 lbs in last year Have you ever been on medication management for weight loss, spoke with anyone about weight loss surgery/procedures, or have you had a surgical procedure to help with weight loss? no Pain 0-10- 5 If yes, Location-neck, low back Upcoming surgeries?- possible neck Has witnessed apnea ( some body told patient that they stop breathing in their sleep) - yes Med Refills (that we prescribe) - n/a Patient here to get re- evaluated for sleep. Had a machine, quit using 1 year ago, nobody showed her how to use, never had a follow up with a sleep doctor.Has headaches almost daily and doesn't sleepwell at night. says she quits breathing in her sleep. * Sunitha Moran APRN-PACKAGING SALES CONSULTANT - 01/03/2025 11:00 AM EST HPI Nicola Gagnon is a 64 y.o. female being seen today for sleep apnea evaluation. Patient referred to sleep clinic by PCP to evaluate and treat for sleep disorder/sleep apnea with history of snoring, insomnia, migraines, BABATUNDE, sleep related hypoxia, fatigue. Most recent sleep testing showed: HST 10/2023: obstructive sleep apnea (AHI 13/hr) with sleep related hypoxia (devi 79%) and problem is likely to result in a high risk morbidity without treatment. Patient states she was set up on APAP therapy,however felt no one taught her how to use and was unable to tolerate, therefore she sent the machine back to [facility] approximately a year ago. She has been experiencing the following symptoms that could correlate with Sleep apnea: snoring, periods of not breathing, tossing and turning, restlesslegs, decreased memory, decreased concentration, excessive daytime sleepiness, feels sleepy during the day, morning headaches, morning dry mouth and maintaining sleep at times. At times she wakes up multiple times a night and does not always feel refreshed in the morning. She also reports sleepiness at times while reading. Patient denies other sleep concerns at today's appointment. Vitals: 01/03/25 1059 BP: 102/68 Pulse: 89 Resp: 16 SpO2: 94% Weight: 68.8 kg (151 lb 9.6 oz) Height: 1.702 m (5' 7) Physical Exam Vitals and nursing note reviewed. Constitutional: General: She is not in acute distress. Appearance: She is well-developed. HENT: Head: Normocephalic and atraumatic. Right Ear: External ear normal. Left Ear: External ear normal. Eyes: General: Right eye: No discharge. Left eye: No discharge. Neck: Vascular: No JVD. Cardiovascular: Rate and Rhythm: Normal rate. Pulses: Normal pulses. Heart sounds: No murmur heard. No friction rub. No gallop. Pulmonary: Effort: Pulmonary effort is normal. No respiratory distress. Breath sounds: No wheezing. Musculoskeletal: General: No deformity. Normal range of motion. Cervical back: Normal range of motion and neck supple. Skin: General: Skin is warm and dry. Neurological: General: No focal deficit present. Mental Status: She is alert and oriented to person, place, and time. Psychiatric: Mood and Affect: Mood normal. Behavior: Behavior normal. Judgment: Judgment normal. No past medical history on file. Past Surgical History: Procedure Laterality Date BACK SURGERY 2009 HYSTERECTOMY 2004 CHOLECYSTECTOMY 1990 Allergies Allergen Reactions Bupropion Hives Penicillins Hives and Rash Outpatient Medications Prior to Visit Medication Sig Dispense Refill azelastine 0.1 % Solution nasal spray 1 spray Twice daily. Cyanocobalamin 100 MCG tablet Take 1 tablet by mouth daily. fexofenadine-pseudoephedrine 180-240 MG Tab SR 24 HR Take 1 tablet by mouth. Ibuprofen 200 MG tablet Take 2 tablets by mouth Every 6 hours as needed. Vitamin D3 125 MCG (5000 UT) per tablet Take 1 tablet by mouth daily. No facility-administered medications prior to visit. Family History Problem Relation Age of Onset Breast Cancer Mother Other - Specify Father Colorectal Cancer Maternal Grandmother Diabetes Paternal Grandfather Social History Socioeconomic History Marital status: Spouse name: Not on file Number of children: Not on file Years of education: Not on file Highest education level: Not on file Occupational History Not on file Tobacco Use Smoking status: Former Types: Cigarettes Smokeless tobacco: Never Vaping Use Vaping status: Never Used Substance and Sexual Activity Alcohol use: Yes Comment: social Drug use: Never Sexual activity: Not on file Other Topics Concern Not on file Social History Narrative Not on file Social Drivers of Health Financial Resource Strain: Low Risk (06/08/2023) Received from [facility] Overall Financial Resource Strain (CARDIA) Difficulty of Paying Living Expenses: Not hard at all Food Insecurity: No Food Insecurity (06/08/2023) Received from [facility] Hunger Vital Sign Worried About Running Out of Food in the Last Year: Never true Ran Out of Food in the Last Year: Never true Transportation Needs: No Transportation Needs (06/08/2023) Received from [facility] PRAPARE - Transportation Lack of Transportation (Medical): No Lack of Transportation (Non-Medical): No Physical Activity: Insufficiently Active (06/08/2023) Received from [facility] Exercise Vital Sign Days of Exercise per Week: 3 days Minutes of Exercise per Session: 40 min Stress: Stress Concern Present (06/08/2023) Received from [facility] [place] [employer] Wall of Occupational Health - Occupational Stress Questionnaire Feeling of Stress : To some extent Social Connections: Socially Integrated (06/08/2023) Received from [facility] Social Connection and Isolation Panel [NHANES] Frequency of Communication with Friends and Family: More than three times a week Frequency of Social Gatherings with Friends and Family: More than three times a week Attends Evangelical Services: More than 4 times per year Active Member of Clubs or Organizations: Not on file Attends Club or Organization Meetings: More than 4 times per year Marital Status: Personal Safety: Not on file Housing Stability: Not on file SLEEP [place] Score -3 CPAP/BIPAP/APAP Pressure - no machine Neck Circumference - 13.5 inches Most Recent Sleep Study -10/22/23 Oxygen Use -no If so, how many liters and is it PRN, Nocturnal, or continuous? Patient is benefiting from PAP therapy--n/a DME - n/a Referred by-Dr. Mark Have you ever seen a sleep specialist (New Patient) - yes Have you ever been treated for Sleep Apnea (New Patient) - yes Work Schedule-varies Sleep Schedule: Time to bed - 10 pm Average time to fall asleep - 2 hours Time up for the day - 7 am How many times a night do you wake up - 6 times Symptoms include : Snoring/snorting - yes Insomnia- yes Are you currently taking any OTC or prescription medications for insomnia - If so, What medications are you currently taking or previously been prescribed for insomnia? Ambienin past, has tried OTC medicine, nothing at present Daytime Sleepiness - yes Are you able to take naps during the day - no If so, how often? Do you experience tossing or turning at night? yes Restless legs - no If so, what medications are you currently taking or have previously been prescribed for RLS? Are you currently or have you previously been treated for ADHD, Narcolepsy, or Fatigue? - no If so, what medications are you currently taking or have previously been prescribed for ADHD, Narcolepsy, or Fatigue? Waking with gasping/shortness of breath - no, only when wearing CPAP Difficulty concentrate- sometimes Waking with headache- yes almost daily Significant weight change- lost 25 lbs in last year Have you ever been on medication management for weight loss, spoke with anyone about weight loss surgery/procedures, or have you had a surgical procedure to help with weight loss? no Pain 0-10- 5 If yes, Location-neck, low back Upcoming surgeries?- possible neck Has witnessed apnea ( some body told patient that they stop breathing in their sleep) - yes Med Refills (that we prescribe) - n/a Patient here to get re- evaluated for sleep. Had a machine, quit using 1 year ago, nobody showed her how to use, never had a follow up with a sleep doctor.Has headaches almost daily and doesn't sleepwell at night. says she quits breathing in her sleep. ROS Reviewed. IMPRESSION AND PLAN: * Sleep apnea, unspecified * Hypersomnia * Fatigue * Snoring * Morning Headaches * Insomnia * Non-Restorative Sleep * Order Test * Evaluation and Management visit that is part of an ongoing, longitudinal care relationship * Patient was advised to lose weight. * Patient was advised to avoid alcohol and sedative medications. * Patient was advised to exercise precaution while operating a motorized vehicle. * Patient was advised to maintain a regular sleep schedule. * Will order for an overnight Polysomnography/Titration. * Patient will follow up after completing testing, approximately 2-4 months to review results Discussed with patient: the physiology of Sleep Apnea, medical conditions associated with sleep apnea (DM, HTN, CAD, Depression, Stroke, Headaches, CHF, Heart Dysrhythmias) and treatment options. Advised patient to avoid activities that could harm self or others when tired/sleep, including driving and/or operating heavy machinery. Depending on polysomnography results: - Order PAP titration based on insurance requirements, if already on therapy continue therapy, or if symptomatic with high AHI complete another titration. - Will start/continue PAP therapy after results of PAP titration - I will have prescription sent to a [employer] [facility] [employer] company of choice- who will becalling patient in approximately next 1-2 weeks. - Patient should be eligible for new supplies approximately every 3-6 months, depending on your insurance coverage, DME company will inform patient of coverage - If patient mask does not fit well, contact [facility] company before 30 days are up to get a new mask without an additional charge - Insurance requires regular usage and periodic office follow ups for PAP therapy to continue to cover supplies Insurance Requirements: - Your insurance requires a [id number] follow up visit within 31-90 days period after starting PAP therapy. - Your insurance requires compliance with PAP therapy, which is at least 4 hours per night for 70% of the time. This must be done over at least 30 day period and must occur within the initial 31-90 day period after starting PAP therapy. - Your insurance also requires at least a yearly follow up to continue to pay for PAP therapy and supplies. A total of 45 minutes were spent at this encounter, and this includes obtaining and/or reviewing separately obtained history , performing exam, review of previous tests and results, independently interpreting results of tests and communicating results to the patient/family/caregiver, ordering medica tions/tests/procedures, counseling the patient and/family on plan of care, referring/communicating with other health care clinician, as well as documenting the clinical information in the EHR. This includes face to face time and preparing to see the patient (review of tests) I personally reviewed selected chart notes, results, interpreted tests, imaging today before seeingthe pt; reviewed and discussed w/ pt, questions answered. Portions of this chart were created using [employer] electronic dictation. Please excuse any typographical or grammatical errors contained herein as a result. REN Goss [facility] Instructions* Patient Instructions* Sunitha Moran MEDICAL RECEPTION SPECIALIST-PACKAGING SALES CONSULTANT - 01/03/2025 11:00 AM EST Images from the original note were not included. What you need to know about how sleep apnea affects your body [email or web address].org/en/health-topics/egev-gfslm-gjiqatyi/hvr-dijut-gtykm-high- blood-pressure/pulmo pxhd-uzovbswbggrx-rnss-epqjr-vjaydqmb-ku-vrr-joxfa-xj-lung-system If you ve ever awakened yourself with a sudden snore -- or if your partner nudges you awake to get you to turn over -- it s possible you could be affected by sleep apnea, which is associated with high blood pressure, arrhythmia, stroke and heart failure. Why is this a big deal? For people with BABATUNDE, it becomes difficult to keep the upper airway open during sleep because weightoverpowers the muscles that hold it open. Each time the airway closes during sleep, there is a pause in breathing; it can happen five to 30 times an hour or more, causing the sleeper to wake up suddenly, gasping for air. When the air flow stops, the body releases stress hormones, which over time can lead to heart disease -- the leading cause of in the [place] -- stroke and high blood pressure. It also canincrease the risk of type 2 diabetes, liver problems and metabolic syndrome. It s also associated with obesity, and experts say it can be part of a vicious cycle in which the sleep deprivation it causes can lead to even more obesity, which in turn makes the condition worse. Who s at risk? People who are overweight are especially at risk for BABATUNDE because fat deposits around the upper airway can cause the airway s muscles to lose tone over time, leading to obstructed breathing. Similarly, people with thicker necks, narrow throats or enlarged tonsils or adenoids may also be at risk. Men are more likely to have sleep apnea than women, and it occurs significantly more often in olderadults. There also may be an increased risk for people with a family history of sleep apnea, smokers or drinkers. What are the signs? Aside from loud snoring and sudden stopped breathing or gasping for air during sleep (observed by someone else, obviously), symptoms may seem similar to those of any sleep disorder: Waking up with a dry mouth Morning headaches Difficulty sleeping or excessive sleepiness Irritability or trouble paying attention while awake Loud Snoring Insomnia Night Sweats Frequent Urination at Night Untreated sleep apnea puts heart health at risk Did you know that sleep apnea impacts heart health? Left untreated, moderate and severe obstructive sleep apnea can more than double your risk of dyingfrom heart disease. BABATUNDE is a cause of systemic hypertension (HTN) and is associated with an increased incidence of stroke, heart failure (HF), atrial fibrillation (AF), and coronary heart disease (CHD). Severe BABATUNDE may increase all-cause mortality and cardiovascular mortality. According to the AASM, there are five shahid warning signs and risk factors for sleep apnea: - Snoring - choking or gasping during sleep - fatigue or daytime sleepiness - obesity (BMI of 30 or higher) - high blood pressure. The AASM warns that untreated obstructive sleep apnea hurts HEARTS by increasing the risk of: H - Heart failure E - Elevated blood pressure A - Atrial fibrillation R - Resistant hypertension T - Type 2 diabetes S - Stroke Additionally, a scientific statement on sleep duration and quality from the [place] [employer] states that moderate and severe sleep apnea are associated with an elevated risk of cardiovascular disease. One of the major health risks linked with obesity is obstructive sleep apnea (BABATUNDE). It involves repetitive breathing pauses that occur during sleep. The most common warning sign for sleep apnea is loud and frequent snoring, but not the only warning sign. Thin people also can have sleep apnea, but amajor risk factor for sleep apnea is excess body weight. An adult with a body mass index (BMI) of 30 or higher is considered to be obese. The risk of sleep apnea increases with the amount of excess body weight. What causes resistant hypertension? Underlying Medical Causes In about 25 percent (1 out of 4) of people with resistant hypertension, there s an identifiable, orsecondary, cause. People whose blood pressure is raised by a medical condition are said to have secondary hypertension. Secondary hypertension will be very hard to control until those conditions are addressed. The more resistant the hypertension, the more likely there is to be a secondary cause. Some common secondary causes of hypertension include: - Structural Disorders - Sleep apnea, a tendency to stop breathing for seconds during sleep - Renal (kidney) artery stenosis, a narrowing of the artery that sends blood to the kidneys - Coarctation of the aorta, a narrowing of part of the aorta (the artery that sends blood from the heart to the rest of the body) - Kidney failure Overweight and Sleep: The interrelationships between obesity and BABATUNDE are complex and bidirectional. Obesity places patients at higher risk for BABATUNDE and patients with BABATUNDE are likely to gain more weight than equally obese subjects without BABATUNDE. Weight loss is recommended in patients who are obese with BABATUNDE as it improves overall health and reduces the severity of BABATUNDE. As the medical community learns more about sleep apnea, several important links to excess body weight are emerging. Not only can excess weight cause sleep apnea, but it can worsen the symptoms and exacerbate its detrimental health effects. Insufficient sleep may also lead to weight gain, making it a vicious cycle. Encouragingly, many studies show that weight loss improves sleep apnea. If you are struggling with sleep apnea or excess weight, it s important to understand the complex interactions between the two conditions. Weight loss can reduce the severity of sleep apnea. But it is unlikely to cure BABATUNDE, but this is always a GOAL. The most effective treatment for sleep apnea is CPAP therapy, it is the Gold Standard Treatment. CPAP provides gently pressurized air through a mask that you wear during sleep. The airflowkeeps your airway open and restores normal breathing. The importance of adequate, quality sleep cannot be over emphasized. Researchers continue to discover more and more benefits of sleep, above and beyond resting enough to feel more awake during the day and to be able to make it through the day without feeling the need for a nap. Although you might be young now and it may seem as if poor sleep is only impacting your days now and then, lack of good sleep will have long-term effects on your mental and physical health and virtually every system of the body. Can Sleep Apnea Cause Weight Gain? While excess weight has long been known to be a risk factor for BABATUNDE, an increasing amount of evidence suggests the relationship is reciprocal. This is because sleep deprivation is associated with decreased leptin (an appetite- suppressing hormone) and increased ghrelin (an appetite-stimulating hormone), which may increase cravings for calorie-dense foods. Additional data indicates that insufficient sleep leads to overeating, obesity, and a decrease in fat-loss during calorie restriction. It also appears that BABATUNDE patients, in particular, may be more susceptible to weight gain than people who have the same BMI and health status but do not suffer from sleep apnea. This is illustrated inone study that showed people with BABATUNDE gained significantly more weight (around 16 pounds in the year leading up to their BABATUNDE diagnosis compared with BMI-matched people without BABATUNDE. Sleep apnea can also deplete people of the energy they need to maintain a healthy body weight. Daytime sleepiness is a common sleep apnea symptom, resulting from fragmented, unrefreshing sleep. Excessive sleepiness may lead sleep apnea sufferers to exert less physical activity during waking hours. This may be particularly problematic for obese people, who frequently experience more shortness of breath and chest discomfort with physical effort, resulting in limited exercise. Without dietary changes, decreased activity levels can lead to additional weight gain. Why It Matters (Weight/Sleep): Ten percent of weight gain is associated with a sixfold increase in risk of BABATUNDE. Increased body weight over time increases the risk for BABATUNDE and accelerates its progression. Plasma ghrelin levels (appetite or hunger hormone ) are significantly higher in patients with BABATUNDE than in BMI-matched controls, but decrease to levels similar to those of patients who are obese without BABATUNDE after continuous positive airway pressure (CPAP) treatment. Weight loss improves BABATUNDE by several mechanisms, including reduction in fatty tissue in the throat (i.e., parapharyngeal fat) and the tongue. Loss of abdominal fat increases mediastinal traction on the upper airway making it less likely to collapse during sleep. Importantly, weight loss benefits commonly associated comorbidities in patients who are obese with BABATUNDE such as hypertension and insulin resistance. Studies have also shown that compliance with CPAP treatment improves leptin (hunger inhibitory hormone) imbalance. The National Institutes of Health (NIH) and the [place] Task Force on Preventive Health Care recommend the use of BMI and waist circumference to screen adults for obesity What are PERIODIC LIMB MOVEMENTS? Periodic limb movements are when you have episodes of simple, repetitive muscle movements. You are unable to control them. They usually do not keep you from falling asleep. Instead, they can disrupt your or your bed partner s sleep during the night. This can cause you both to be very tired during the day. Periodic limb movements do not involve a change in body position, stretching a muscle, or a cramp. Instead, the movements tend to involve the tightening or flexing of a muscle. They occur most often in the lower legs. Limb movements during sleep are much more common. When they occur often through the night, they can disrupt your sleep many times. Normally, you are unaware of the movements or of waking up. The degree to which these movements occur can change from night to night. They usually happen during non-rapid eye movement sleep in the first half of the night. When these movements are very severe,then they may also happen while you are awake. An episode will normally last from a few minutes to an hour. Within that time, movements tend to occur every 20 to 40 seconds. They may affect only one of the legs. More often, they will affect both legs. Limb movements during sleep are quite common. For most people, the movements do not disturb their sleep in a significant way. This means that it is not a sleep disorder. The sleep of the bed partner tends to be affected more often than that of the patient. The movements reach the level of a disorder, periodic limb movement disorder, when they disrupt thepatient s sleep and daily life. This disorder may be a factor in causing you to have any of the following: - Depression - Bad memory - Short attention span - Fatigue What are symptoms of periodic limb movements: Normally, you are unaware of the movements. This can make it very hard for you to know if you have periodic limb movements. Someone who sleeps in the same bed with you would be more likely to notice the movements. You might have periodic limb movement disorder if: - Someone else told you that your body makes unusual, repetitive movements while you sleep - These movements tend to occur in your lower legs - You feel like you are never well-rested, even after a full night of sleep - You are often very tired during the day It is also important to know if there is something else that is causing your sleep problems. They may be a result of one of the following: - Another sleep disorder (for example, restless legs syndrome or sleep apnea) - A medical condition - Medication use (for example, anxiety and depression medications) - A mental health disorders - Substance abuse How to diagnose periodic limb movements? For most people, the movements do not disturb their sleep in a severe way. They do not need to seekmedical help. In other cases, severe movements can greatly disturb your sleep and life. In this case, you will want to see a sleep doctor. You should complete a sleep diary for two weeks. This will give the doctor clues as to what might be causing your problems. You can also rate your sleep with the [place] Sleepiness Scale. This will help show how your sleep is affecting your daily life. The doctor will need to know your complete medical history. Be sure to inform her of any past or present drug and medication use. Also, tell her if you or a relative have ever had a sleep disorder. Your doctor will likely have you do a sleep study. This is called a polysomnography. The test records your brain waves, heart rate, and breathing as you sleep. It also monitors how your arms and legsmove. Not only will it keep track of your movements, but it will also help detect any other sleep disorder that you may have. How to treat periodic limb movements? When it is necessary to treat periodic limb movement disorder, the same drugs that are used for restless legs syndrome also work. These include drugs that replace a chemical in the brain called dopamine. These drugs are also used to treat Parkinson s disease. However, if you have periodic limb movement disorder, you are not at an increased risk of getting Parkinson s disease. Other medications used include the following: Sleeping tablets & Some anti-seizure medications Low iron levels have been associated with periodic limb movements during sleep. Your doctor may recommend a blood test to check your iron levels and if low, an iron supplement may be recommended. Lifestyle changes: If your symptoms are mild (not painful and at most once a week), cutting back on caffeine, alcohol and tobacco products; exercising; massaging your legs and/or taking hot baths before bed may help reduce symptoms. Talk to your doctor about whether these options might help you. Massaging the legs and feet Taking a warm bath Taking a cool bath Relaxing in a whirlpool tub Resting the legs on a heating pad Putting a cold pack or ice pack on the legs Avoid Triggers It can also be helpful to avoid substances that trigger symptoms Caffeine: Caffeine can aggravate symptoms for some people who have RLS. In addition to coffee, caffeine is found in tea, cola soft drinks, energy drinks, chocolate, and some [id number] medications. Alcohol: Drinking alcoholic beverages increases symptoms in some people with RLS. Tobacco: Tobacco and nicotine may cause RLS symptoms to flare up. Besides cigarettes, tobacco-containing products include cigars, e-cigarettes, and smokeless tobacco. Certain medications: Antihistamines in nonprescription cold and allergy medications can cause RLS symptoms to get worse. Some antidepressants also have an effect on RLS symptoms, but no one should stop a medication without first consulting their doctor. documented in this [facility] [id number] History of Present illness Narrative* Nicola Mark MD - 12/27/2024 8:40 AM EST Subjective: Nicola Gagnon is a 64 y.o. female who presents to clinic today for Follow-up (3 mo fu ) Follow up sleep apnea and chronic pain. She is seeing Yumiko for sleep in 1 week. Pain: she has done therapy and has done an injection. She goes next week to see Dr. Macias. Sinus: she notes that she continues to be stuffy the majority of the time. She thinks that a lot ofher issues are related to her neck. Had one day recently where she had some difficulty with breathing out. Sweating continues to wake her up and she continues to wake up multiple times. Had a hysterectomy in 2003. Has been having symptoms of menopause for 15-20 years. Review of Systems Assessment/Plan: Nicola Gagnon is a 64 y.o. female who presents to clinic today to address the following issues: 1. Nasal congestion azelastine (Astelin) 137 mcg (0.1 %) nasal spray 2. Primary insomnia 3. Breast cancer screening by mammogram BI mammo bilateral screening tomosynthesis Nasal congestion: Chronic problem, known to provider Not having resolution of Flonase show switch to Astelin fluid retention improved primary care open chronic congestion. Once neck pain and insomnia have improved may send to ENT for further management Insomnia: Agree with patient seeing sleep medicine which she will see 1 week from today. Problem List Items Addressed This Visit Primary insomnia Overview has been on serax, has tried black cohosh Other Visit Diagnoses Nasal congestion - Primary Relevant Medications azelastine (Astelin) 137 mcg (0.1 %) nasal spray Breast cancer screening by mammogram Relevant Orders BI mammo bilateral screening tomosynthesis There are no Patient Instructions on file for this visit. Follow up: 3 months for Medicare wellness visit Return precautions discussed. An After Visit Summary was given to the patient. All questions were answered and patient in agreement with plan. Objective: BP 122/72 Pulse 87 Ht 1.702 m (5' 7) Wt 69.9 kg (154 lb) SpO2 96% BMI 24.12 kg/m Physical Exam Vitals and nursing note reviewed. Constitutional: General: She is not in acute distress. Appearance: Normal appearance. HENT: Head: Normocephalic and atraumatic. Nose: Congestion present. No rhinorrhea. Mouth/Throat: Mouth: Mucous membranes are moist. Eyes: General: No scleral icterus. Right eye: No discharge. Left eye: No discharge. Extraocular Movements: Extraocular movements intact. Conjunctiva/sclera: Conjunctivae normal. Pulmonary: Effort: No respiratory distress. Skin: General: Skin is warm and dry. Neurological: General: No focal deficit present. Mental Status: She is alert and oriented to person, place, and time. Psychiatric: Attention and Perception: Attention normal. Mood and Affect: Mood normal. Speech: Speech normal. Behavior: Behavior normal. Cognition and Memory: Cognition and memory normal. Judgment: Judgment normal. I spent 20 minutes in total time for this visit including all related clinical activities before, during, and after the visit excluding other billable activities/procedure time. Nicola Mark MD documented in this [facility] Work Phone: [phone] History of Present illness Narrative* Nickolas Choe APRN-[employer] CONSULTANT - 12/10/2024 9:00 AM EST Subjective Patient ID: Nicola Gagnon is a 64 y.o. female who presents for Follow-up (FOLLOW U C6/7 STEVE DONE ON 11/16/2024 NO RELIEF, SHE STATES THAT WHEN SHE WAS INJECTED SHE HAD PAIN THAT WENT INTO BOTH ARMS DOWN TO HER FINGERTIPS AND SHE COULDN'T MOVE THEM FOR 3 MINUTES, SHE STATES SHE HAS HAD INCREASED NECK AND LEFT SHOULDER PAIN SINCE THE PROCEDURE, SHE STATES SHE HAS NOTICED THAT HER HANDS HAVE BEEN VERY COLD SINCE THE PROCEDURE,). SHE IS TAKING TYLENOL AND SHE TOOK HER HUSBANDS TRAMADOL FOR HER PAIN MULTIPLE TIMES AND STATES IT HELPED HER PAIN, SHE IS NOT TAKING GABAPENTIN, ADVIL OTC, TOPICAL OINTMENT,HEAT FOR RELIEF, HOME STRETCHING EXERCISES, DESCRIBES PAIN TO BE ACHING,TIGHT,THROBBING,NUMB, HER MOOD IS BEING AFFECTED WITH THE PAIN AND NOT BEING ABLE TO DO A LOT DUE TO PAIN, PAIN SCORE 8/10, FELIX=48%, COMM=12, DEP NO, FALLS NO, SMOKING NO Jacqueline HuffmanDAMARIS 12/10/24 8:57 AM The patient is a 64-year-old female who presents today for follow-up after undergoing a C6-7 epidural steroid injection on 11/16/2024. The patient reports no relief from this injection. She says that made the pain worse, that for the first 3 minutes or so following the injection she had trouble moving both arms. Following that, she had increased pain in her neck. She currently rates her pain an 8/10, saying it is in her neck and radiating primarily into her left shoulder region, but will have intermittent numbness and tingling radiating into bilateral arms. 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 She has tried gabapentin with intolerable side effects, and uses Advil, topical medications, heat. She is asking if we would be able to give her tramadol. As she has used her 's tramadol, and we are very strict on rules and regulations surrounding narcotic medications, we will actually place her on a nonnarcotic therapy. We discussed trying a ketamine compound cream to see if this could bring any pain relief. She has a 2-week trip coming up, and is worried about the pain on that trip. Discussed that we can send in a Medrol Dosepak for her to bring with her in case the pain were to flareup, patient is agreeable. She is wondering what other options she has to help with her pain. Review of Systems Constitutional: Negative. HENT: Negative. Eyes: Negative. Respiratory: Negative for cough, shortness of breath and wheezing. Cardiovascular: Negative for chest pain, palpitations and leg swelling. Endocrine: Negative. Genitourinary: Negative. Musculoskeletal: Positive for back pain, myalgias and neck pain. Negative for arthralgias. Skin: Negative. Allergic/Immunologic: Negative. Neurological: Negative for facial asymmetry, weakness and light-headedness. Hematological: Negative for adenopathy. Does not bruise/bleed easily. Psychiatric/Behavioral: Negative for dysphoric mood and suicidal ideas. Objective Physical Exam Constitutional: General: She is not in acute distress. Appearance: Normal appearance. HENT: Head: Normocephalic. Mouth/Throat: Mouth: Mucous membranes are moist. Eyes: Extraocular Movements: Extraocular movements intact. Cardiovascular: Rate and Rhythm: Normal rate and regular rhythm. Pulses: Normal pulses. Heart sounds: Normal heart sounds. No murmur heard. No friction rub. No gallop. Pulmonary: Effort: Pulmonary effort is normal. Breath sounds: Normal breath sounds. No wheezing, rhonchi or rales. Abdominal: General: Abdomen is flat. Palpations: Abdomen is soft. Musculoskeletal: Cervical back: Normal range of motion. Right lower leg: No edema. Left lower leg: No edema. Comments: Ambulates without assistance Strength 5/5 BUE Cervical ROM limited due to pain Cervical facet loading positive Lymphadenopathy: Cervical: No cervical adenopathy. Skin: General: Skin is warm and dry. Neurological: General: No focal deficit present. Mental Status: She is alert and oriented to person, place, and time. Mental status is at baseline. Psychiatric: Mood and Affect: Mood normal. Behavior: Behavior normal. Assessment/Plan Diagnoses and all orders for this visit: Neck pain Foraminal stenosis of cervical region - Referral to Neurosurgery; Future - methylPREDNISolone (Medrol Dospak) 4 mg tablets; Follow schedule on package instructions Arthropathy of cervical facet joint Cervical radiculopathy - Referral to Neurosurgery; Future - methylPREDNISolone (Medrol Dospak) 4 mg tablets; Follow schedule on package instructions The patient is a 64-year-old female with past medical history significant for the above-mentioned problems. She is following up after cervical STEVE with no relief. We reviewed her MRI again and discussed options based on the findings as well as her pain pattern and her physical exam. We discussed that while we could try MBB's in hopes of an RFA, the fact that her MRI does show flattening of the thecal sac and slight deformity of the spinal cord especially at C5-6, it is unlikely that targeting the facet related pain would be very beneficial overall for her symptoms. We discussed referral to a neurosurgeon for further evaluation for possible surgical intervention. Patient is agreeable, a referral will be sent to Dr. Camacho with [facility], as the patient would prefer to stay as close to [place] as possible. She will call us to follow-up after she sees Dr. Camacho, call us sooner if needed. documented in this [facility] Work Phone: [phone] Attending History and physical note* Luis Andrade DO - 11/16/2024 2:30 PM EST H&P reviewed. The patient was examined and there are no changes to the H&P. Source Note - REN Galindo - 10/23/2024 8:15 AM EST Subjective Patient ID: Nicola Gagnon is a 64 y.o. female who presents for Pain (FUV for ry neck pain 6/10 today after taking Aleve this morning. Pain is described as sharp, dull, ache which is described as constant at different levels of pain. Pain is caused by daily activity but laying down not lifting her head will help decrease the pain. Patient states she stopped taking the gabapentin. She had a chest pain which took her to the ER and she wasn't sure if the gabapentin was the cause since she had just started taking it. FELIX = 42/100. Alcohol screen is negative. ). Cervical MRI was done 10-12-24 at . Pain score 6/10. Rachel Le RN 10/23/24 8:04 AM The patient is a 64-year-old female presents today for follow-up appointment to review her MRI imaging. She currently rates her pain a 6/10 in her neck with numbness and weakness her into bilateral arms to her hands. Pain interferes with her ability to perform her ADLs and function around the house, she says the pain typically gets worse throughout the day. 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 At her lastappointment we had started her on gabapentin, but she had an episode of chest pain following it, and is unsure if it is related, but stopped taking the gabapentin just in case. She is wondering what options we have to help with her pain. Review of Systems Constitutional: Negative. HENT: Negative. Eyes: Negative. Respiratory: Negative for cough, shortness of breath and wheezing. Cardiovascular: Negative for chest pain, palpitations and leg swelling. Endocrine: Negative. Genitourinary: Negative. Musculoskeletal: Positive for myalgias and neck pain. Negative for arthralgias. Skin: Negative. Allergic/Immunologic: Negative. Neurological: Negative for facial asymmetry, weakness and light-headedness. Hematological: Negative for adenopathy. Does not bruise/bleed easily. Psychiatric/Behavioral: Negative for dysphoric mood and suicidal ideas. Objective Physical Exam Constitutional: General: She is not in acute distress. Appearance: Normal appearance. HENT: Head: Normocephalic. Mouth/Throat: Mouth: Mucous membranes are moist. Eyes: Extraocular Movements: Extraocular movements intact. Cardiovascular: Rate and Rhythm: Normal rate and regular rhythm. Pulses: Normal pulses. Heart sounds: Normal heart sounds. No murmur heard. No friction rub. No gallop. Pulmonary: Effort: Pulmonary effort is normal. Breath sounds: Normal breath sounds. No wheezing, rhonchi or rales. Abdominal: General: Abdomen is flat. Palpations: Abdomen is soft. Musculoskeletal: Cervical back: Normal range of motion. Right lower leg: No edema. Left lower leg: No edema. Comments: Ambulates that assistance Strength 5/5 BUE Cervical ROM limited due to pain Cervical facet loading positive Flexion of neck exacerbates radicular symptoms Lymphadenopathy: Cervical: No cervical adenopathy. Skin: General: Skin is warm and dry. Neurological: General: No focal deficit present. Mental Status: She is alert and oriented to person, place, and time. Mental status is at baseline. Psychiatric: Mood and Affect: Mood normal. Behavior: Behavior normal. Assessment/Plan Diagnoses and all orders for this visit: Cervical radiculopathy - FL pain management; Future - Epidural Steroid Injection; Future Arthropathy of cervical facet joint Foraminal stenosis of cervical region Other orders - methylPREDNISolone acetate (DEPO-Medrol) injection 40 mg - lidocaine PF (Xylocaine) 20 mg/mL (2 %) injection 120 mg - iohexol (OMNIPaque) 300 mg iodine/mL solution 3 mL - sodium chloride (PF) 0.9% solution 3 mL - NPO Diet Except: Sips with meds; Effective now; Standing - Height and weight; Standing - Type And Screen; Standing - Inpatient consult to Respiratory Care; Standing - Adult diet Regular; Standing - Vital Signs; Standing - Notify provider (specify parameters); Standing - Continue IV fluids ordered pre-procedure; Standing - Prior to Discharge O2 Weaning; Standing - Pulse oximetry, continuous; Standing - Discharge patient; Standing Patient is a 64-year-old female with a past medical history significant for the above-mentioned problems. We reviewed her MRI imaging together and discussed options based on findings, her pain pattern, her physical exam, and her failure to improve with previous conservative treatments such as medications and therapy. Based on the findings, I recommend pursuing a C6/7 epidural steroid injection under fluoroscopy. The procedure was discussed, risks and benefits were discussed, patient is agreeable. Med holds include ibuprofen for 1 day, and vitamins/supplements for 1 week. She will follow-up after the injection for reevaluation, call clinic sooner if needed. [facility] Work Phone: [phone] History and physical note* Luis Andrade DO - 11/16/2024 2:30 PM EST H&P reviewed. The patient was examined and there are no changes to the H&P. Source Note - REN Galindo - 10/23/2024 8:15 AM EST Subjective Patient ID: Nicola Gagnon is a 64 y.o. female who presents for Pain (FUV for ry neck pain 04/16 today after taking Aleve this morning. Pain is described as sharp, dull, ache which is described as constant at different levels of pain. Pain is caused by daily activity but laying down not lifting her head will help decrease the pain. Patient states she stopped taking the gabapentin. She had a chest pain which took her to the ER and she wasn't sure if the gabapentin was the cause since she had just started taking it. FELIX = 42/100. Alcohol screen is negative. ). Cervical MRI was done 10-12-24 at . Pain score 6/10. Rachel Le RN 10/23/24 8:04 AM The patient is a 64-year-old female presents today for follow-up appointment to review her MRI imaging. She currently rates her pain a 6/10 in her neck with numbness and weakness her into bilateral arms to her hands. Pain interferes with her ability to perform her ADLs and function around the house, she says the pain typically gets worse throughout the day. 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 At her lastappointment we had started her on gabapentin, but she had an episode of chest pain following it, and is unsure if it is related, but stopped taking the gabapentin just in case. She is wondering what options we have to help with her pain. Review of Systems Constitutional: Negative. HENT: Negative. Eyes: Negative. Respiratory: Negative for cough, shortness of breath and wheezing. Cardiovascular: Negative for chest pain, palpitations and leg swelling. Endocrine: Negative. Genitourinary: Negative. Musculoskeletal: Positive for myalgias and neck pain. Negative for arthralgias. Skin: Negative. Allergic/Immunologic: Negative. Neurological: Negative for facial asymmetry, weakness and light-headedness. Hematological: Negative for adenopathy. Does not bruise/bleed easily. Psychiatric/Behavioral: Negative for dysphoric mood and suicidal ideas. Objective Physical Exam Constitutional: General: She is not in acute distress. Appearance: Normal appearance. HENT: Head: Normocephalic. Mouth/Throat: Mouth: Mucous membranes are moist. Eyes: Extraocular Movements: Extraocular movements intact. Cardiovascular: Rate and Rhythm: Normal rate and regular rhythm. Pulses: Normal pulses. Heart sounds: Normal heart sounds. No murmur heard. No friction rub. No gallop. Pulmonary: Effort: Pulmonary effort is normal. Breath sounds: Normal breath sounds. No wheezing, rhonchi or rales. Abdominal: General: Abdomen is flat. Palpations: Abdomen is soft. Musculoskeletal: Cervical back: Normal range of motion. Right lower leg: No edema. Left lower leg: No edema. Comments: Ambulates that assistance Strength 5/5 BUE Cervical ROM limited due to pain Cervical facet loading positive Flexion of neck exacerbates radicular symptoms Lymphadenopathy: Cervical: No cervical adenopathy. Skin: General: Skin is warm and dry. Neurological: General: No focal deficit present. Mental Status: She is alert and oriented to person, place, and time. Mental status is at baseline. Psychiatric: Mood and Affect: Mood normal. Behavior: Behavior normal. Assessment/Plan Diagnoses and all orders for this visit: Cervical radiculopathy - FL pain management; Future - Epidural Steroid Injection; Future Arthropathy of cervical facet joint Foraminal stenosis of cervical region Other orders - methylPREDNISolone acetate (DEPO-Medrol) injection 40 mg - lidocaine PF (Xylocaine) 20 mg/mL (2 %) injection 120 mg - iohexol (OMNIPaque) 300 mg iodine/mL solution 3 mL - sodium chloride (PF) 0.9% solution 3 mL - NPO Diet Except: Sips with meds; Effective now; Standing - Height and weight; Standing - Type And Screen; Standing - Inpatient consult to Respiratory Care; Standing - Adult diet Regular; Standing - Vital Signs; Standing - Notify provider (specify parameters); Standing - Continue IV fluids ordered pre-procedure; Standing - Prior to Discharge O2 Weaning; Standing - Pulse oximetry, continuous; Standing - Discharge patient; Standing Patient is a 64-year-old female with a past medical history significant for the above-mentioned problems. We reviewed her MRI imaging together and discussed options based on findings, her pain pattern, her physical exam, and her failure to improve with previous conservative treatments such as medications and therapy. Based on the findings, I recommend pursuing a C6/7 epidural steroid injection under fluoroscopy. The procedure was discussed, risks and benefits were discussed, patient is agreeable. Med holds include ibuprofen for 1 day, and vitamins/supplements for 1 week. She will follow-up after the injection for reevaluation, call clinic sooner if needed. documented in this [facility] Work Phone: [phone]) 744-309101-10-2025 Miscellaneous Notes* Perioperative Nursing Note - Rachel Le RN - 11/16/2024 2:24 PM EST Ambulated to discharge exit; steady gait; Driven home by Monae. documented in this [facility] Work Phone: [phone]) 426-906201-10-2025 Note* Perioperative Nursing Note - Rachel Le RN - 11/16/2024 2:24 PM EST Ambulated to discharge exit; steady gait; Driven home by Monae. [facility]01-10-2025 NoteTable formatting from the original result was not included. Procedure Epidural Steroid Injection Indication Cervical radiculopathy Medications methylPREDNISolone acetate (DEPO-Medrol) injection 40 mg lidocaine PF (Xylocaine) 20 mg/mL (2 %) injection 120 mg 5 mL iohexol (OMNIPaque) 300 mg iodine/mL solution 3 mL 1 mL (Totals for administrations occurring from 1338 to 1345 on 11/16/24) Preprocedure A history and physical has been performed, and patient medication allergies have been reviewed. The patient's tolerance of previous anesthesia has been reviewed. The risks and benefits of the procedure and the sedation options and risks were discussed with the patient. All questions were answered and informed consent obtained. Details of the Procedure Diagnosis: M54.12, cervical radiculopathy Procedure: C6/7 cervical interlaminar epidural steroid injection under fluoroscopic guidance Anesthesia: Local Complications: None After informed consent was obtained, the patient was brought to the operating room and placed in the prone position. The neck area was prepped and draped in the usual sterile fashion. Using fluoroscopic guidance, the skin and subcutaneous tissue overlying needle trajectory to the interlaminar epidural space was anesthetized with 2.0% lidocaine. An 18-gauge Tuohy needle was then advanced in the paraspinous approach into the epidural space. Entry into the epidural space was confirmed using the loss of resistance technique with a glass syringe and 2 cc of air. Injection of contrast revealed appropriate spread without vascular uptake. Subsequently, 3mL of normal saline with 40 mg methylprednisolone were injected. The patient tolerated the procedure well and the needle was removed. They were then transferred to PACU in stable condition. FOLLOW UP: The patient will update us on their response to this procedure, and agrees to continue currently prescribed/recommended therapies Procedure Provider Luis Andrade, DO Procedure Location [facility] [place] [facility] [address] Referring Provider Nickolas Choe APRN-PILY [address] [place] [address] [facility] Work Phone: 1([phone]) 661-426512-17-2024 History of Present illness Narrative* REN Galindo - 10/23/2024 8:15 AM EST Subjective Patient ID: Nicola Gagnon is a 64 y.o. female who presents for Pain (FUV for ry neck pain 6/10 today after taking Aleve this morning. Pain is described as sharp, dull, ache which is described as constant at different levels of pain. Pain is caused by daily activity but laying down not lifting her head will help decrease the pain. Patient states she stopped taking the gabapentin. She had a chest pain which took her to the ER and she wasn't sure if the gabapentin was the cause since she had just started taking it. FELIX = 42/100. Alcohol screen is negative. ). Cervical MRI was done 10-12-24 at . Pain score 6/10. Rachel Le RN 10/23/24 8:04 AM The patient is a 64-year-old female presents today for follow-up appointment to review her MRI imaging. She currently rates her pain a 6/10 in her neck with numbness and weakness her into bilateral arms to her hands. Pain interferes with her ability to perform her ADLs and function around the house, she says the pain typically gets worse throughout the day. 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 At her lastappointment we had started her on gabapentin, but she had an episode of chest pain following it, and is unsure if it is related, but stopped taking the gabapentin just in case. She is wondering what options we have to help with her pain. Review of Systems Constitutional: Negative. HENT: Negative. Eyes: Negative. Respiratory: Negative for cough, shortness of breath and wheezing. Cardiovascular: Negative for chest pain, palpitations and leg swelling. Endocrine: Negative. Genitourinary: Negative. Musculoskeletal: Positive for myalgias and neck pain. Negative for arthralgias. Skin: Negative. Allergic/Immunologic: Negative. Neurological: Negative for facial asymmetry, weakness and light-headedness. Hematological: Negative for adenopathy. Does not bruise/bleed easily. Psychiatric/Behavioral: Negative for dysphoric mood and suicidal ideas. Objective Physical Exam Constitutional: General: She is not in acute distress. Appearance: Normal appearance. HENT: Head: Normocephalic. Mouth/Throat: Mouth: Mucous membranes are moist. Eyes: Extraocular Movements: Extraocular movements intact. Cardiovascular: Rate and Rhythm: Normal rate and regular rhythm. Pulses: Normal pulses. Heart sounds: Normal heart sounds. No murmur heard. No friction rub. No gallop. Pulmonary: Effort: Pulmonary effort is normal. Breath sounds: Normal breath sounds. No wheezing, rhonchi or rales. Abdominal: General: Abdomen is flat. Palpations: Abdomen is soft. Musculoskeletal: Cervical back: Normal range of motion. Right lower leg: No edema. Left lower leg: No edema. Comments: Ambulates that assistance Strength 5/5 BUE Cervical ROM limited due to pain Cervical facet loading positive Flexion of neck exacerbates radicular symptoms Lymphadenopathy: Cervical: No cervical adenopathy. Skin: General: Skin is warm and dry. Neurological: General: No focal deficit present. Mental Status: She is alert and oriented to person, place, and time. Mental status is at baseline. Psychiatric: Mood and Affect: Mood normal. Behavior: Behavior normal. Assessment/Plan Diagnoses and all orders for this visit: Cervical radiculopathy - FL pain management; Future - Epidural Steroid Injection; Future Arthropathy of cervical facet joint Foraminal stenosis of cervical region Other orders - methylPREDNISolone acetate (DEPO-Medrol) injection 40 mg - lidocaine PF (Xylocaine) 20 mg/mL (2 %) injection 120 mg - iohexol (OMNIPaque) 300 mg iodine/mL solution 3 mL - sodium chloride (PF) 0.9% solution 3 mL - NPO Diet Except: Sips with meds; Effective now; Standing - Height and weight; Standing - Type And Screen; Standing - Inpatient consult to Respiratory Care; Standing - Adult diet Regular; Standing - Vital Signs; Standing - Notify provider (specify parameters); Standing - Continue IV fluids ordered pre-procedure; Standing - Prior to Discharge O2 Weaning; Standing - Pulse oximetry, continuous; Standing - Discharge patient; Standing Patient is a 64-year-old female with a past medical history significant for the above-mentioned problems. We reviewed her MRI imaging together and discussed options based on findings, her pain pattern, her physical exam, and her failure to improve with previous conservative treatments such as medications and therapy. Based on the findings, I recommend pursuing a C6/7 epidural steroid injection under fluoroscopy. The procedure was discussed, risks and benefits were discussed, patient is agreeable. Med holds include ibuprofen for 1 day, and vitamins/supplements for 1 week. She will follow-up after the injection for reevaluation, call clinic sooner if needed. [facility] 1([phone]) [phone] Instructions* Patient Instructions* Juliann Truong RN - 10/23/2024 8:15 AM EST Injection education completed written and verbally. [facility] Work Phone: 1([phone]) 530-923412-06-2024 Note* Progression of cervical spondylosis with canal and foraminal narrowing as described. MACRO: none Signed by: Douglas Esqueda 10/12/2024 10:13 AM Dictation workstation: [id number] Emergency department Note * Jason Bonilla DO - 10/09/2024 4:19 PM EST HPI Chief Complaint Patient presents with Chest Pain To er per afd from home with c/o chest pain. States this morning around 1000 while playing pickle ball she started feeling dizzy and thirsty, denied any chest pain at that time. States she was relaxing since and started having chest pain and sob. Ems gave asa 324mg and nitroglycerin x 1. Patient presents to the emergency department from home secondary to chest pain that began approximately 10 AM with activity. Progressive over the course of this afternoon but relieved with aspirin and nitroglycerin and route to the hospital. No history of coronary artery disease. 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 used: No Patient History Past Medical History: Diagnosis Date Depression Headache Heterozygous for MTHFR gene mutation 09/07/2023 Past Surgical History: Procedure Laterality Date BACK SURGERY CHOLECYSTECTOMY OTHER SURGICAL HISTORY 05/29/2021 Lumpectomy OTHER SURGICAL HISTORY 05/29/2021 Knee surgery OTHER SURGICAL HISTORY 05/29/2021 Partial hysterectomy TUBAL LIGATION WISDOM TOOTH EXTRACTION Family History Problem Relation Name Age of Onset Breast cancer Mother Liliana Depression Mother Liliana Pancreatitis Father Darshan COPD Father Darshan Bipolar disorder Son Colon cancer Maternal Grandmother [place] Social History Tobacco Use Smoking status: Former Current packs/day: 0.00 Average packs/day: 1 pack/day for 30.5 years (30.5 ttl pk-yrs) Types: Cigarettes Start date: 11/07/1977 Quit date: 04/30/2008 Years since quittin.4 Passive exposure: Past Smokeless tobacco: Never Vaping Use Vaping status: Never Used Substance Use Topics Alcohol use: Yes Alcohol/week: 4.0 standard drinks of alcohol Types: 4 Glasses of wine per week Drug use: Never Physical Exam ED Triage Vitals [10/09/24 1636] Temperature Heart Rate Respirations BP 36.1 C (97 F) 72 18 102/65 Pulse Ox Temp Source Heart Rate Source Patient Position 95 % Tympanic Monitor -- BP Location FiO2 (%) -- -- Physical Exam Vitals and nursing note reviewed. Constitutional: General: She is not in acute distress. Appearance: Normal appearance. She is normal weight. She is not ill-appearing, toxic-appearing or diaphoretic. HENT: Head: Normocephalic and atraumatic. Nose: Nose normal. No rhinorrhea. Neck: Comments: Trachea is midline Cardiovascular: Rate and Rhythm: Normal rate and regular rhythm. Heart sounds: No murmur heard. Pulmonary: Effort: Pulmonary effort is normal. Breath sounds: Normal breath sounds. No wheezing. Abdominal: General: Abdomen is flat. Bowel sounds are normal. There is no distension. Palpations: Abdomen is soft. Tenderness: There is no abdominal tenderness. Musculoskeletal: General: Normal range of motion. Cervical back: Normal range of motion. Skin: General: Skin is warm and dry. Findings: No rash. Neurological: General: No focal deficit present. Mental Status: She is alert and oriented to person, place, and time. Mental status is at baseline. Psychiatric: Mood and Affect: Mood normal. Behavior: Behavior normal. Thought Content: Thought content normal. Judgment: Judgment normal. ED Course & MDM Diagnoses as of 10/09/241833 Chest pain, unspecified type No data recorded Bart Coma Scale Score: 15 (10/09/24 1621 : Jamia Osorio RN) Medical Decision Making Twelve-lead EKG was interpreted by myself and this was noted to contribute directly to patient care. Study reveals a normal sinus rhythm at 76 bpm, normal axis, early R wave progression, no acute ischemic changes. Patient has a heart score of 2. Her workup is unremarkable. Differential considerations would include, but not limited to, musculoskeletal pain, GERD, amongst others. Given her low risk heart score and unremarkable workup I feel she is appropriate for discharge. Reassurance was given. Follow-up with her private physician. Return at anytime if worse. Procedure Procedures Jason Bonilla DO 10/09/241834 documented in this [facility] Work Phone: 1([phone]) 282-591012-03-2024 Physician Emergency department Note* Jason Bonilla DO - 10/09/2024 4:19 PM EST HPI Chief Complaint Patient presents with Chest Pain To er per afd from home with c/o chest pain. States this morning around 1000 while playing pickle ball she started feeling dizzy and thirsty, denied any chest pain at that time. States she was relaxing since and started having chest pain and sob. Ems gave asa 324mg and nitroglycerin x 1. Patient presents to the emergency department from home secondary to chest pain that began approximately 10 AM with activity. Progressive over the course of this afternoon but relieved with aspirin and nitroglycerin and route to the hospital. No history of coronary artery disease. 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 used: No Patient History Past Medical History: Diagnosis Date Depression Headache Heterozygous for MTHFR gene mutation 09/07/2023 Past Surgical History: Procedure Laterality Date BACK SURGERY CHOLECYSTECTOMY OTHER SURGICAL HISTORY 05/29/2021 Lumpectomy OTHER SURGICAL HISTORY 05/29/2021 Knee surgery OTHER SURGICAL HISTORY 05/29/2021 Partial hysterectomy TUBAL LIGATION WISDOM TOOTH EXTRACTION Family History Problem Relation Name Age of Onset Breast cancer Mother Liliana Depression Mother Liliana Pancreatitis Father Darshan COPD Father Darshan Bipolar disorder Son Colon cancer Maternal Grandmother [place] Social History Tobacco Use Smoking status: Former Current packs/day: 0.00 Average packs/day: 1 pack/day for 30.5 years (30.5 ttl pk-yrs) Types: Cigarettes Start date: 11/07/1977 Quit date: 04/30/2008 Years since quittin.4 Passive exposure: Past Smokeless tobacco: Never Vaping Use Vaping status: Never Used Substance Use Topics Alcohol use: Yes Alcohol/week: 4.0 standard drinks of alcohol Types: 4 Glasses of wine per week Drug use: Never Physical Exam ED Triage Vitals [10/09/24 1636] Temperature Heart Rate Respirations BP 36.1 C (97 F) 72 18 102/65 Pulse Ox Temp Source Heart Rate Source Patient Position 95 % Tympanic Monitor -- BP Location FiO2 (%) -- -- Physical Exam Vitals and nursing note reviewed. Constitutional: General: She is not in acute distress. Appearance: Normal appearance. She is normal weight. She is not ill-appearing, toxic-appearing or diaphoretic. HENT: Head: Normocephalic and atraumatic. Nose: Nose normal. No rhinorrhea. Neck: Comments: Trachea is midline Cardiovascular: Rate and Rhythm: Normal rate and regular rhythm. Heart sounds: No murmur heard. Pulmonary: Effort: Pulmonary effort is normal. Breath sounds: Normal breath sounds. No wheezing. Abdominal: General: Abdomen is flat. Bowel sounds are normal. There is no distension. Palpations: Abdomen is soft. Tenderness: There is no abdominal tenderness. Musculoskeletal: General: Normal range of motion. Cervical back: Normal range of motion. Skin: General: Skin is warm and dry. Findings: No rash. Neurological: General: No focal deficit present. Mental Status: She is alert and oriented to person, place, and time. Mental status is at baseline. Psychiatric: Mood and Affect: Mood normal. Behavior: Behavior normal. Thought Content: Thought content normal. Judgment: Judgment normal. ED Course & MDM Diagnoses as of 10/09/241833 Chest pain, unspecified type No data recorded Bart Coma Scale Score: 15 (10/09/24 1621 : Jamia Osorio RN) Medical Decision Making Twelve-lead EKG was interpreted by myself and this was noted to contribute directly to patient care. Study reveals a normal sinus rhythm at 76 bpm, normal axis, early R wave progression, no acute ischemic changes. Patient has a heart score of 2. Her workup is unremarkable. Differential considerations would include, but not limited to, musculoskeletal pain, GERD, amongst others. Given her low risk heart score and unremarkable workup I feel she is appropriate for discharge. Reassurance was given. Follow-up with her private physician. Return at anytime if worse. Procedure Procedures Jason Bonilla DO 10/09/241834 [facility] Work Phone: 1([phone]) [phone] History of Present illness Narrative* Nickolas Choe, [employer] - 10/02/2024 1:00 PM EST Subjective Patient ID: Nicola Gagnon is a 64 y.o. female who presents for Neck Pain (NPV here for neck pain radiating into bilat shoulders L>R and weakness, intermittent numbness and tingling in bilat upper extremities rates pain 6/10 now and 9/10 at worst upon waking is the worst, hard to hold her head up, constant aching, stabbing with turning her head or increased pain. She is going to PT, Chiropract or, massage therapy, she takes Advil dual action or tylenol, Hemp cream, heat more than ice these help her pain but she is still having pain that affects her ADLs. ) She is having lower back pain, has had I for years had surgery but the neck is hurting her more and wants that addressed first. FELIX score %, SOAPP score Screenings depression, falls, smoking negative. Niya Gracia RN 10/02/24 12:56 PM The patient is a 64-year-old female who presents today as a new patient referred to us for neck pain with radicular symptoms into bilateral arms and weakness and numbness and tingling. She currently rates pain 6/10, says it does get up to a 9/10 at its worst. Typically the pain is worse upon wakingup, but she has difficulty holding her head up and turning her head from [id number] without significant pain. She is currently in physical therapy and has been going to the chiropractor and doing massage therapy. She has tried Advil and Tylenol and hemp cream, none of which have brought any relief. She has tried heat and ice, again nothing that brings meaningful relief. She has had x-rays done,and she is wondering what we have to offer to help with the pain. Review of Systems Constitutional: Negative. HENT: Negative. Eyes: Negative. Respiratory: Negative for cough, shortness of breath and wheezing. Cardiovascular: Negative for chest pain, palpitations and leg swelling. Endocrine: Negative. Genitourinary: Negative. Musculoskeletal: Positive for arthralgias, myalgias and neck pain. Skin: Negative. Allergic/Immunologic: Negative. Neurological: Negative for facial asymmetry, weakness and light-headedness. Hematological: Negative for adenopathy. Does not bruise/bleed easily. Psychiatric/Behavioral: Negative for dysphoric mood and suicidal ideas. Objective Physical Exam Constitutional: General: She is not in acute distress. Appearance: Normal appearance. HENT: Head: Normocephalic. Mouth/Throat: Mouth: Mucous membranes are moist. Eyes: Extraocular Movements: Extraocular movements intact. Cardiovascular: Rate and Rhythm: Normal rate and regular rhythm. Pulses: Normal pulses. Heart sounds: Normal heart sounds. No murmur heard. No friction rub. No gallop. Pulmonary: Effort: Pulmonary effort is normal. Breath sounds: Normal breath sounds. No wheezing, rhonchi or rales. Abdominal: General: Abdomen is flat. Palpations: Abdomen is soft. Musculoskeletal: Cervical back: Normal range of motion. Right lower leg: No edema. Left lower leg: No edema. Comments: Ambulates without assistance Strength 4/5 BUE No cervical paraspinal tenderness to palpation Cervical ROM limited due to pain Cervical facet loading positive Cervical flexion exacerbates radicular symptoms Lymphadenopathy: Cervical: No cervical adenopathy. Skin: General: Skin is warm and dry. Neurological: General: No focal deficit present. Mental Status: She is alert and oriented to person, place, and time. Mental status is at baseline. Psychiatric: Mood and Affect: Mood normal. Behavior: Behavior normal. Assessment/Plan Diagnoses and all orders for this visit: Cervical radiculopathy - MR cervical spine wo IV contrast; Future - gabapentin (Neurontin) 300 mg capsule; Take 1 capsule (300 mg) by mouth 3 times a day. Neck pain - Referral to Pain Medicine Arthropathy of cervical facet joint The patient is a 64-year-old female with a past medical history significant for the above-mentionedproblems. Given that she has this ongoing neck pain with significant radicular symptoms, we reviewed her cervical x-rays and we will start by obtaining an MRI of the cervical spine to give a better picture of the nerves and discs. She is open to injection options. We will follow-up in a couple of weeks to review her images, but in the meantime we will trial gabapentin 300 mg 3 times a day on an uptitrating schedule to see if we can bring her any pain relief in the meantime. PDMP reviewed, Rx sent. documented in this [facility] Work Phone: 1([phone]) 331-580411-19-2024 History of Present illness Narrative* Nicola Mark MD - 09/25/2024 11:00 AM EST Subjective: Nicola Gagnon is a 64 y.o. female who presents to clinic today for Follow-up (3 MO FU ) She notes that she's been feeling terrible. She has neck pain that has been bothersome. She's had blurry vision, headaches, dizziness. She's not sleeping well and is having hot flashes at night. Theyare happening every 1.5 hours. She's also peeing a lot at night. She did try to keep track of hot flashes with her [employer] apps. She notes that her hot flashes only last 2 minutes. She did not notice much change with the lower dose of venlafaxine. She's seen Dr. Macias in chiropractic. Review of Systems Assessment/Plan: Nicola Gagnon is a 64 y.o. female with a history of migraines, BABATUNDE, insomnia, diverticulosis who presents to clinic today to address the following issues: 1. Obstructive sleep apnea syndrome Referral to Adult Sleep Medicine 2. Neck pain Referral to Pain Medicine Referral to Physical Therapy Obstructive sleep apnea/insomnia: Discussed with Nicola that likely she would feel better with wearing her CPAP machine. Will refer her to sleep medicine to help with titration as well as usage of the machine. Neck pain: Chronic problem, known to provider There is having increasing neck pain she has had neck pain for 20 years but is worsening. Due to this we will refer to pain management as well as physical therapy. She is already her plain films fromher chiropractor. Problem List Items Addressed This Visit Obstructive sleep apnea syndrome - Primary Relevant Orders Referral to Adult Sleep Medicine Other Visit Diagnoses Neck pain Relevant Orders Referral to Pain Medicine Referral to Physical Therapy Patient Instructions Sinuses: Every day twice daily 2 puffs Fluticasone in each nostril After two weeks, reduce that Flonase to 2 puffs once daily Follow up: 3 months Return precautions discussed. An After Visit Summary was given to the patient. All questions were answered and patient in agreement with plan. Objective: BP 110/86 Pulse 85 Ht 1.702 m (5' 7) Wt 75.6 kg (166 lb 9.6 oz) SpO2 96% BMI 26.09 kg/m Physical Exam Vitals and nursing note reviewed. Constitutional: General: She is not in acute distress. Appearance: Normal appearance. HENT: Head: Normocephalic and atraumatic. Right Ear: Ear canal and external ear normal. Left Ear: Ear canal and external ear normal. Nose: Congestion present. Comments: Inflammed nasal turbinate Mouth/Throat: Mouth: Mucous membranes are moist. Eyes: General: No scleral icterus. Right eye: No discharge. Left eye: No discharge. Extraocular Movements: Extraocular movements intact. Conjunctiva/sclera: Conjunctivae normal. Cardiovascular: Rate and Rhythm: Normal rate and regular rhythm. Pulmonary: Effort: Pulmonary effort is normal. No respiratory distress. Breath sounds: Normal breath sounds. Abdominal: General: Abdomen is flat. Palpations: Abdomen is soft. Musculoskeletal: Right lower leg: No edema. Left lower leg: No edema. Skin: General: Skin is warm and dry. Neurological: General: No focal deficit present. Mental Status: She is alert and oriented to person, place, and time. Psychiatric: Attention and Perception: Attention normal. Mood and Affect: Mood normal. Speech: Speech normal. Behavior: Behavior normal. Cognition and Memory: Cognition and memory normal. Judgment: Judgment normal. I spent 20 minutes in total time for this visit including all related clinical activities before, during, and after the visit excluding other billable activities/procedure time. Nicola Mark MD [facility] Work Phone: 1(184) 376-979511-19-2024 Instructions* Patient Instructions* Nicola Mark MD - 09/25/2024 11:00 AM EST Sinuses: Every day twice daily 2 puffs Fluticasone in each nostril After two weeks, reduce that Flonase to 2 puffs once daily [facility] Work Phone: 1(604) 527-432808-13-2024 History of Present illness Narrative* Nicola Mark MD - 06/19/2024 1:20 PM EDT Subjective: Nicola Gagnon is a 64 y.o. female who presents to clinic today for Fatigue, Excessive Sweating, and Ankle Pain (Rolled Left ankle) She notes that she has excessive sweating from her head and her face. She doesn't have to be hot ordoing anything to make this happen. She's been sweating like this for 15 years. It started worsening and becoming more of a head sweat 2 years ago. No red flag symptoms. No night sweats, no weight loss. She also has tinnitus and notes that it is constant. It is not pulsatile. It bothers her at night. She does not take aspirin. She feels generally unwell and tired. Last year she was started on a CPAP.she tried it but gave it up since she wasn't trained on it. She has difficulty with falling and staying asleep. She is tired again by mid afternoon. She tries to go to bed at 10pm, her ideal wakeup time is 7a. She usually canonly sleep 2 hours in a row. It usually is taking between 15mins-45mins to fall back asleep. She wakes up and pees but that isnt what wakes her up. She rolled her ankle playing pickleball. She was able to play on it this morning. It was more swollen on Tuesday than it is today. She's worn a small brace. Review of Systems Assessment/Plan: Nicola Gagnon is a 64 y.o. female with a history of hot flashes, hyperlipidemia, BABATUNDE who presents to clinic today to address the following issues: 1. Sweating abnormality venlafaxine XR (Effexor-XR) 75 mg 24 hr capsule venlafaxine XR (Effexor-XR) 37.5 mg 24 hr capsule CBC Comprehensive Metabolic Panel Thyroid Stimulating Hormone 2. Need for prophylactic vaccination against diphtheria and tetanus CANCELED: Tdap vaccine, age 7 years and older (BOOSTRIX) 3. Screening for diabetes mellitus Comprehensive Metabolic Panel 4. Screening, lipid Lipid Panel 5. Other disturbances of skin sensation Thyroid Stimulating Hormone I discussed with Nicola that she does not have any red flag symptoms of sweating and at this time does not require full laboratory workup. If she does have night sweats weight loss or other red flag symptoms we could consider evaluating more extensively. Most likely cause of sweating is her venlafaxine. Due to this we will taper off with her doing 75 mg for 2 weeks followed by 37.5 mg for 2 weeks. Additionally we discussed getting routine lab work prior to follow-up in September for Medicare wellness visit. I recommended evaluation of hearing due to tinnitus. Additionally for her insomnia she is going to try CBT-I and stopping venlafaxine. If symptoms are not improving will send for in person sleep study for further evaluation and management. Problem List Items Addressed This Visit None Visit Diagnoses Sweating abnormality - Primary Relevant Medications venlafaxine XR (Effexor-XR) 75 mg 24 hr capsule venlafaxine XR (Effexor-XR) 37.5 mg 24 hr capsule Other Relevant Orders CBC Comprehensive Metabolic Panel Thyroid Stimulating Hormone Need for prophylactic vaccination against diphtheria and tetanus Screening for diabetes mellitus Relevant Orders Comprehensive Metabolic Panel Screening, lipid Relevant Orders Lipid Panel Other disturbances of skin sensation Relevant Orders Thyroid Stimulating Hormone Patient Instructions Cognitive Behavioral Therapy For Insomnia Resources : [employer] - Between $50-70 for permanent use CBT-I Manager Er - this is a free justin that is helpful for many [employer] - vazquez varies I would look into these resources but they have been vetted by other physicians and have research backing their usage. Follow up: 3 months for AWV Return precautions discussed. An After Visit Summary was given to the patient. All questions were answered and patient in agreement with plan. Objective: BP 120/74 Pulse 85 Ht 1.702 m (5' 7) Wt 79.9 kg (176 lb 3.2 oz) SpO2 96% BMI 27.60 kg/m Physical Exam Vitals and nursing note reviewed. Constitutional: General: She is not in acute distress. Appearance: Normal appearance. HENT: Head: Normocephalic and atraumatic. Mouth/Throat: Mouth: Mucous membranes are moist. Eyes: General: No scleral icterus. Right eye: No discharge. Left eye: No discharge. Extraocular Movements: Extraocular movements intact. Conjunctiva/sclera: Conjunctivae normal. Cardiovascular: Rate and Rhythm: Normal rate and regular rhythm. Pulmonary: Effort: Pulmonary effort is normal. No respiratory distress. Breath sounds: Normal breath sounds. Musculoskeletal: Right lower leg: No edema. Left lower leg: No edema. Comments: Left ankle with lateral swelling over medial malleolus no point tenderness Skin: General: Skin is warm and dry. Comments: Sweating and warmth from head during episode of sweating. Neurological: General: No focal deficit present. Mental Status: She is alert and oriented to person, place, and time. Psychiatric: Attention and Perception: Attention normal. Mood and Affect: Mood normal. Speech: Speech normal. Behavior: Behavior normal. Cognition and Memory: Cognition and memory normal. Judgment: Judgment normal. I spent 31 minutes in total time for this visit including all related clinical activities before, during, and after the visit excluding other billable activities/procedure time. Nicola Mark MD [facility] Work Phone: 1(771) 975-708308-13-2024 Instructions* Patient Instructions* Nicola Mark MD - 06/19/2024 1:20 PM EDT Cognitive Behavioral Therapy For Insomnia Resources : [employer] - Between $50-70 for permanent use CBT-I Manager Er - this is a free justin that is helpful for many [employer] - vazquez varies I would look into these resources but they have been vetted by other physicians and have research backing their usage. [facility] Work Phone: 1(207) [phone] History of Present illness Narrative* Sergio Navas MD - 01/19/2024 8:20 AM EDT Subjective Patient ID: Nicola Gagnon is a 63 y.o. female who presents for Follow-up (CPAP). HPI Basically feels worse with the CPAP than without. Is not working very well not getting help from desk go respiratory therapy with him to try to get a mask that fits. Interestingly she tried a smallerportable unit that worked well, but I am not sure I understand why that was the case. Will still continue CPAP, but will do it through town pharmacy locally. Hopefully we can get her some teaching in getting something that fits to see if this will help her with her sleep. No sleep medications at this time, still working on a CPAP. Review of Systems Constitutional: Positive for fatigue. Respiratory: Negative for shortness of breath. Neurological: Negative for headaches. Psychiatric/Behavioral: Positive for sleep disturbance. The patient is not nervous/anxious. Objective BP 118/72 Pulse 85 Ht 1.702 m (5' 7) Wt 81.4 kg (179 lb 8 oz) SpO2 92% BMI 28.11 kg/m Physical Exam Constitutional: Appearance: Normal appearance. HENT: Head: Normocephalic and atraumatic. Skin: General: Skin is warm and dry. Neurological: General: No focal deficit present. Mental Status: She is alert and oriented to person, place, and time. Psychiatric: Mood and Affect: Mood normal. Behavior: Behavior normal. Thought Content: Thought content normal. Judgment: Judgment normal. Assessment/Plan Problem List Items Addressed This Visit ICD-10-CM Obstructive sleep apnea syndrome - Primary G47.33 documented in this [facility] Work Phone: [phone]) 889-877711-10-2023 History of Present illness Narrative* Sergio Navas MD - 09/16/2023 2:20 PM EST Subjective Reason for Visit: Nicola Gagnon is an 63 y.o. female here for a Medicare Wellness visit. Past Medical, Surgical, and Family History reviewed and updated in chart. Reviewed all medications by prescribing practitioner or clinical pharmacist (such as prescriptions,OTCs, herbal therapies and supplements) and documented in the medical record. HPI Colon done 2020- 5 years for + FH. Mmg 2022 DEXA normal 2022. Anxiety is okay on the Effexor but its more for hot flashes and they are okay also. But sleep has been poor. Further questioning it does sound like she does have some apneic events and she does snorewhen she is on her back Before starting a medicine like Seroquel, lets start a home sleep study test first. Basic labs today Recommend flu shot Prevnar 20 shot today She never had shingles had the old Zostavax shot. Patient Care Team: Sergio Navas MD as PCP - General Sergio Navsa MD as PCP - [employer] Ad[employer]age PCP Review of Systems Constitutional: Positive for fatigue. HENT: Positive for tinnitus. Respiratory: Positive for shortness of breath. Negative for cough. Cardiovascular: Positive for palpitations. Negative for chest pain. Gastrointestinal: Negative for abdominal pain, blood in stool, constipation and diarrhea. Endocrine: Positive for heat intolerance. Negative for cold intolerance. Genitourinary: Positive for dysuria. Negative for difficulty urinating and hematuria. Skin: Negative for rash. Neurological: Positive for dizziness. Negative for headaches. Psychiatric/Behavioral: Positive for sleep disturbance. The patient is nervous/anxious. Objective Vitals: BP 140/90 Pulse 88 Ht 1.702 m (5' 7) Wt 83.5 kg (184 lb 1.6 oz) SpO2 95% BMI 28.83 kg/m Physical Exam Constitutional: Appearance: Normal appearance. HENT: Head: Normocephalic and atraumatic. Neck: Thyroid: No thyromegaly. Vascular: No carotid bruit. Cardiovascular: Rate and Rhythm: Normal rate and regular rhythm. Heart sounds: Normal heart sounds. Pulmonary: Effort: Pulmonary effort is normal. Breath sounds: Normal breath sounds. Abdominal: General: Abdomen is flat. Palpations: Abdomen is soft. Tenderness: There is no abdominal tenderness. Lymphadenopathy: Cervical: No cervical adenopathy. Skin: General: Skin is warm and dry. Neurological: General: No focal deficit present. Mental Status: She is alert and oriented to person, place, and time. Psychiatric: Mood and Affect: Mood normal. Behavior: Behavior normal. Thought Content: Thought content normal. Judgment: Judgment normal. Assessment/Plan Problem List Items Addressed This Visit None Visit Diagnoses Routine general medical examination at health care facility - Primary Obstructive sleep apnea syndrome Relevant Orders Home sleep apnea test (HSAT) Fatigue, unspecified type Relevant Orders CBC Comprehensive Metabolic Panel Magnesium Thyroid Stimulating Hormone documented in this [facility] Work Phone: 1(137) 359-186110-17-2023 Miscellaneous Notes* Letter - Coordinator, Mammography - 08/23/2023 2:17 PM EDT August 24, 2023 PID: [id number] Nicola Gagnon [address] [place] [address] [place] [address] Dear Ms. Gagnon, We are pleased to inform you that the results of your recent breast imaging exam on 08/23/2023 are normal. Your mammogram demonstrates that you have dense breast tissue, which could hide abnormalities. Dense breast tissue, in and of itself, is a relatively common condition. Therefore, this information is not provided to cause undue concern; rather, it is to raise your awareness and promote discussion with your health care provider regarding the presence of dense breast tissue in addition to other riskfactors. Early detection of cancer is very important. We also understand recommendations regarding breast cancer screening are controversial. Please discuss with your primary care provider which strategy is best for you and whether a mammogram is right for you. Your imaging studies and report will be kept on file at [facility] as part of your permanent medical record and are available for your continuing care. Thank you for allowing us to help in meeting your health care needs. Sincerely, Dr. Brooke Interpreting Radiologist [facility] (Normal over 40) documented in this encounterAccess [facility]10-17-2023 NoteHNO ID: [id number] Author: Dalton Jennings Mammo Tech Service: ? Author Type: Technologist Type: Progress Notes Filed: 08/23/2023 10:53 AM Note Text: Radiology Service Progress Note PATIENT NAME: Nicola Gagnon DATE OF SERVICE: August 23, 2023 TIME: 10:53 AM PATIENT IDENTITY VERIFICATION COMPLETED USING TWO (2) IDENTIFIERS: Name and Date of confirmed by patient verbally. FALL SCREENING: Has the patient had 2 falls in the last year or 1 fall with injury or currently using an Ambulatory Assistive Device (Walker, Cane, Wheelchair, Crutches, etc.)? No PATIENT GENDER DATA: Female. status: : No status: NO. PATIENT RELEVANT IMPLANT DATA REVIEWED: Not Applicable RADIOLOGY DEPARTMENT: Mammography PERIPHERAL IV DATA: Not applicable SIGNED BY: Renzo Whatley August 23, 2023 10:53 [facility]10-17-2023 NoteHNO ID: [id number] Author: Elliott Amaro RT(R) Service: ? Author Type: Technologist Type: Progress Notes Filed: 08/23/2023 10:08 AM Note Text: Radiology Service Progress Note PATIENT NAME: Nicola Gagnon DATE OF SERVICE: August 23, 2023 TIME: 9:56 AM PATIENT IDENTITY VERIFICATION COMPLETED USING TWO (2) IDENTIFIERS: Name and Date of confirmed by patient verbally. FALL SCREENING: Has the patient had 2 falls in the last year or 1 fall with injury or currently using an Ambulatory Assistive Device (Walker, Cane, Wheelchair, Crutches, etc.)? No PATIENT GENDER DATA: Female. status: : No status: NO. PATIENT RELEVANT IMPLANT DATA REVIEWED: Not Applicable RADIOLOGY DEPARTMENT: Bone Density PERIPHERAL IV DATA: Not applicable SIGNED BY: Elliott Amaro, RT(R) August 23, 2023 9:56 [facility]10-17-2023 History of Present illness Narrative* Dalton Jennings Mammo Tech - 08/23/2023 10:50 AM EDT Radiology Service Progress Note PATIENT NAME: Nicola Gagnon DATE OF SERVICE: August 23, 2023 TIME: 10:53 AM PATIENT IDENTITY VERIFICATION COMPLETED USING TWO (2) IDENTIFIERS: Name and Date of confirmedby patient verbally. FALL SCREENING: Has the patient had 2 falls in the last year or 1 fall with injury or currently using an Ambulatory Assistive Device (Walker, Cane, Wheelchair, Crutches, etc.)? No PATIENT GENDER DATA: Female. status: : No status: NO. PATIENT RELEVANT IMPLANT DATA REVIEWED: Not Applicable RADIOLOGY DEPARTMENT: Mammography PERIPHERAL IV DATA: Not applicable SIGNED BY: Renzo Whatley August 23, 2023 10:53 AM documented in this encounterAccess [facility]10-13-2023 NoteHNO ID: [id number] Author: Sara Navarrete APRN.PACKAGING SALES CONSULTANT Service: ? Author Type: Nurse Practitioner Type: Progress Notes Filed: 08/19/2023 12:37 PM Note Text: Wood Grinder offered: Patient declines. Tamica is a 63 year old who presents for an annual gynecologic exam without complaints. 07/21/2021 enterocele repair, posterior colporrhaphy and perineorrhaphy Dr Wilde Venlafaxine helps hot flashes and did notice it helped her depression after had a stroke recently. Postmenopausal: Hysterectomy, ovaries remain. 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 LMP: 12/23/2005, Hysterectomy Age at Menarche: Age at First : Age at Menopause: [employer] Faculty Member History Comments: Sexual Activity: Not Currently; Male; tubal ligation then Contraception: Surgical PAST MEDICAL HISTORY Diagnosis Date Depressive disorder, not elsewhere classified was on zoloft for hot flashes Diverticulosis 2009 on colonoscopy with poor prep Family history of breast cancer in mother Fibrocystic breast changes one cyst Heterozygous MTHFR mutation [id number] 11/2013 Heterozygous MTHFR mutation C677T 11/2013 rec cerefolinNAC or deplin HSDD low normal testosterone offered vaginal DHEA Insomnia has been on serax, has tried black cohosh Lumbago Migraine Occipital neuralgia 12/2015 Other and unspecified hyperlipidemia 11/2013 cholesterol 219 elevated TG Postmenopausal HRT (hormone replacement therapy) had fibrocystic breasts on compounded BHT Postmenopausal HRT (hormone replacement therapy) 11/2013 given elestrin Rash 11/2013 stopped wellbutrin Rectocele Symptomatic states associated with artificial menopause 12/2005 fibroid s/p TH ovaries left in place 11/2013 normal bone density estradiol 215 Unspecified vertiginous syndromes and labyrinthine disorders Vitamin D deficiency 11/2013 30.7 Weight gain 50 lbs PAST SURGICAL HISTORY Procedure Laterality Date ARTHRT KNE W/JT EXPL BX/RMVL LOOSE/FB 1983 CHOLECYSTECTOMY 1991 laparascopy COLONOSCOPY FLX DX W/COLLJ SPEC WHEN PFRMD 12/16/2009,01/2015 Colonoscopy diverticulosis some retained stool LIG/TRNSXJ FLP TUBE ABDL/VAG APPR UNI/BI PAST SURGICAL HISTORY OF 2006 DR Elissa Knight diskectomy lumbar disc VAGINAL HYSTERECTOMY UTERUS 250 GM/< 12/30/2005 FAMILY HISTORY Problem Relation Age of Onset Emphysema Father ex-smoker, pancreatitis, colon polyps other (Breast Cancer, remission) Mother PM living age 76 Heart Maternal Grandfather Diabetes Paternal Grandfather other (healthy) Son other (healthy) Son other (healthy) Son other (No FH of multiple sclerosis) Other Anesthesia Problems No Family History SOCIAL HISTORY Social History Tobacco Use Smoking status: Former Packs/day: 1.00 Years: 30.00 Additional pack years: 0.00 Total pack years: 30.00 Types: Cigarettes Smokeless tobacco: Never Tobacco comments: 04/30/2008 Vaping Use Vaping Use: Never used Substance Use Topics Alcohol use: Yes Comment: occasionally - 5 drinks per week or less Drug use: No REVIEW OF SYSTEMS Abdomen: No abdominal pain, nausea, vomiting, diarrhea, or constipation. No bloating, early satiety, indigestion, or increased flatulence. Bladder: No dysuria, gross hematuria, urinary frequency, urinary urgency, or incontinence Breast: No breast lumps, nipple d/c, overlying skin changes, redness or skin retraction Allergies and current medication updated:Yes EXAM: BP 124/80 Ht 5' 7.5 (1.72m) Wt 181 lb (82.1kg) LMP 12/23/2005 BMI 27.91 kg/(m2). GENERAL: pleasant, female in no apparent distress HEENT: Normocephalic, atraumatic, mucus membranes moist, and no lesions NECK: Supple, full range of motion, no adenopathy, and thyroid normal DERMATOLOGY: Normal, without lesions, non-icteric, and non-hirsute BREAST: soft, non-tender, symmetric, no dominant mass, normal nipple-areolar complex, no lymphadenopathy, and no nipple discharge CHEST: Normal inspiratory effort ABDOMEN: soft, non-tender, and no masses PELVIC: external genitalia normal, normal Bartholin's glands, urethra, Broken Arrow's glands, no vulvar lesions, good vaginal support, physiologic discharge present, normal appearing perineal body and perianal region, cervix surgically absent BIMANUAL: no adnexal masses, non-tender, and uterus surgically absent RECTOVAGINAL: deferred. NEURO: alert and oriented x3,exam grossly non-focal EXTREMITIES: normal ASSESSMENT/PLAN: 1) Health maintenance: Pap/HPV screening no longer needed Mammogram ordered Nutrition, exercise and routine health maint (more content not included)... [facility]10-13-2023 History of Present illness Narrative* Sara Navarrete, TYRONE.PACKAGING SALES CONSULTANT - 08/19/2023 10:50 AM EDT Wood Grinder offered: Patient declines. Tamica is a 63 year old who presents for an annual gynecologic exam without complaints. 07/21/2021 enterocele repair, posterior colporrhaphy and perineorrhaphy Dr Wilde Venlafaxine helps hot flashes and did notice it helped her depression after had a stroke recently. Postmenopausal: Hysterectomy, ovaries remain. 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 LMP: 12/23/2005, Hysterectomy Age at Menarche: Age at First : Age at Menopause: [employer] Faculty Member History Comments: Sexual Activity: Not Currently; Male; tubal ligation then Contraception: Surgical PAST MEDICAL HISTORY Diagnosis Date Depressive disorder, not elsewhere classified was on zoloft for hot flashes Diverticulosis 2009 on colonoscopy with poor prep Family history of breast cancer in mother Fibrocystic breast changes one cyst Heterozygous MTHFR mutation [id number] 11/2013 Heterozygous MTHFR mutation C677T 11/2013 rec cerefolinNAC or deplin HSDD low normal testosterone offered vaginal DHEA Insomnia has been on serax, has tried black cohosh Lumbago Migraine Occipital neuralgia 12/2015 Other and unspecified hyperlipidemia 11/2013 cholesterol 219 elevated TG Postmenopausal HRT (hormone replacement therapy) had fibrocystic breasts on compounded BHT Postmenopausal HRT (hormone replacement therapy) 11/2013 given elestrin Rash 11/2013 stopped wellbutrin Rectocele Symptomatic states associated with artificial menopause 12/2005 fibroid s/p TH ovaries left in place 11/2013 normal bone density estradiol 215 Unspecified vertiginous syndromes and labyrinthine disorders Vitamin D deficiency 11/2013 30.7 Weight gain 50 lbs PAST SURGICAL HISTORY Procedure Laterality Date ARTHRT KNE W/JT EXPL BX/RMVL LOOSE/FB 1984 CHOLECYSTECTOMY 1992 laparascopy COLONOSCOPY FLX DX W/COLLJ SPEC WHEN PFRMD 12/16/2009,01/2015 Colonoscopy diverticulosis some retained stool LIG/TRNSXJ FLP TUBE ABDL/VAG APPR UNI/BI PAST SURGICAL HISTORY OF 2006 DR Elissa Knight diskectomy lumbar disc VAGINAL HYSTERECTOMY UTERUS 250 GM/< 12/30/2005 FAMILY HISTORY Problem Relation Age of Onset Emphysema Father ex-smoker, pancreatitis, colon polyps other (Breast Cancer, remission) Mother PM living age 76 Heart Maternal Grandfather Diabetes Paternal Grandfather other (healthy) Son other (healthy) Son other (healthy) Son other (No FH of multiple sclerosis) Other Anesthesia Problems No Family History SOCIAL HISTORY Social History Tobacco Use Smoking status: Former Packs/day: 1.00 Years: 30.00 Additional pack years: 0.00 Total pack years: 30.00 Types: Cigarettes Smokeless tobacco: Never Tobacco comments: 04/30/2008 Vaping Use Vaping Use: Never used Substance Use Topics Alcohol use: Yes Comment: occasionally - 5 drinks per week or less Drug use: No REVIEW OF SYSTEMS Abdomen: No abdominal pain, nausea, vomiting, diarrhea, or constipation. No bloating, early satiety, indigestion, or increased flatulence. Bladder: No dysuria, gross hematuria, urinary frequency, urinary urgency, or incontinence Breast: No breast lumps, nipple d/c, overlying skin changes, redness or skin retraction Allergies and current medication updated:Yes EXAM: BP 124/80 Ht 5' 7.5 (1.72m) Wt 181 lb (82.1kg) LMP 12/23/2005 BMI 27.91 kg/(m^2). GENERAL: pleasant, female in no apparent distress HEENT: Normocephalic, atraumatic, mucus membranes moist, and no lesions NECK: Supple, full range of motion, no adenopathy, and thyroid normal DERMATOLOGY: Normal, without lesions, non-icteric, and non-hirsute BREAST: soft, non-tender, symmetric, no dominant mass, normal nipple-areolar complex, no lymphadenopathy, and no nipple discharge CHEST: Normal inspiratory effort ABDOMEN: soft, non-tender, and no masses PELVIC: external genitalia normal, normal Bartholin's glands, urethra, Broken Arrow's glands, no vulvar lesions, good vaginal support, physiologic discharge present, normal appearing perineal body and perianal region, cervix surgically absent BIMANUAL: no adnexal masses, non-tender, and uterus surgically absent RECTOVAGINAL: deferred. NEURO: alert and oriented x3,exam grossly non-focal EXTREMITIES: normal ASSESSMENT/PLAN: 1) Health maintenance: Pap/HPV screening no longer needed Mammogram ordered Nutrition, exercise and routine health maintenance exams reviewed. Calcium/Vitamin D supplementation information provided. Colon cancer screening: up to date with screening BMD: ordered 2. Hot flashes, menopausal - ICD9: 627.2, ICD10: N95.1 - VENLAFAXINE ER 150 MG CAPSULE,EXTENDED RELEASE 24 HR 3. Situational depression - ICD9: 309.0, ICD10: F43.21 - VENLAFAXINE ER 150 MG CAPSULE,EXTENDED RELEASE 24 HR 4) Follow up as needed Sara Navarrete APRN.PILY [facility] Miscellaneous Notes* Telephone Encounter - Sara Navarrete APRN.CNP - 04/11/2023 12:33 PM EDT 30 day refill. Pt had hysterectomy. If she does not plan to continue gynecologic appointments with me, she can have this prescription continued by her PCP. Sara Navarrete APRN.PILY * Telephone Encounter - Daniela Alvarez RN - 04/11/2023 10:28 AM EDT Last annual with [facility] 05/26/21. Patient viewed [employer]ent[employer] message in 03/08/23 refill encounter that she is overdue for annual exam, but has not scheduled. Requested Prescriptions Pending Prescriptions Disp Refills venlafaxine ER (EFFEXOR XR) 150 mg 24 hr capsule 30 capsule 0 Sig: Take 1 capsule by mouth once daily. Daniela Alvarez RN [facility] [place] Miscellaneous Notes* Telephone Encounter - Tammy Watts - 06/11/2021 1:53 PM EDT Patient was last seen in the office on 02/20/2020 and are overdue for a follow up appointment. Our patients are required to be seen at least once a year for follow up, medication refills and to keep an established relationship with the office. Please schedule an appointment with an X RAY SERVICE ENGINEER/PA or your provider by contacting our schedulers at [phone] as you will need to be seen before a refill can be provided. We are currently offering mychart zoom appointments if you wish to not come into the office. If you feel you do not need to be seen, please contact your primary care provider for any refills. [facility] History of Present illness Narrative* colon due 2019. will refer * MMG done at [facility] yesterday at [facility] . * COVID shot done * Shingles [ zostivax done ], recommend yearly flu shot. * a little chest pressure at rest. bikes and walks without inc CP. will watch. call or ER if gets worse. [facility] Work Phone: evaluation note* Diagnosis Hot flashes, menopausal Symptomatic menopausal or female climacteric states [facility]* Diagnosis Encounter for gynecologic examination for high-risk patient covered by Medicare- Primary Routine gynecological examination Encounter for screening mammogram for breast cancer Dense breast tissue Hot flashes, menopausal Symptomatic menopausal or female climacteric states Asymptomatic postmenopausal state Situational depression Adjustment disorder with depressed mood Encounter for screening for osteoporosis Special screening for osteoporosis [facility]* Diagnosis Encounter for gynecologic examination for high-risk patient covered by Medicare Routine gynecological examination Encounter for screening mammogram for breast cancer Dense breast tissue [facility]* Diagnosis Routine general medical examination at health care facility- Primary Routine general medical examination at a health care facility Obstructive sleep apnea syndrome Obstructive sleep apnea (adult) (pediatric) Fatigue, unspecified type documented in this encounter [facility] Work Phone: Evaluation note* Diagnosis Obstructive sleep apnea syndrome- Primary Obstructive sleep apnea (adult) (pediatric) documented in this encounter [facility] Work Phone: Evaluation note* Diagnosis Obstructive sleep apnea syndrome- Primary Obstructive sleep apnea (adult) (pediatric) Neck pain Cervicalgia documented in this encounter [facility] Work Phone: Evaluation note* Diagnosis Neck pain Cervicalgia documented in this encounter [facility] Work Phone: Evaluation note* Diagnosis Cervical radiculopathy- Primary Brachial neuritis or radiculitis nos Neck pain Cervicalgia Arthropathy of cervical facet joint documented in this encounter [facility] Work Phone: [phone] note* Diagnosis Chest pain, unspecified type- Primary documented in this encounter [facility] Work Phone: [phone] note* Diagnosis Sweating abnormality- Primary Need for prophylactic vaccination against diphtheria and tetanus Screening for diabetes mellitus Screening, lipid Other disturbances of skin sensation documented in this encounter [facility] Work Phone: [phone] note* Diagnosis Cervical radiculopathy- Primary Brachial neuritis or radiculitis nos Arthropathy of cervical facet joint Foraminal stenosis of cervical region documented in this encounter [facility] Work Phone: [phone] note* Diagnosis Cervical radiculopathy Brachial neuritis or radiculitis nos documented in this encounter [facility] Work Phone: [phone] note* Diagnosis Cervical radiculopathy Brachial neuritis or radiculitis nos documented in this encounter [facility] Work Phone: [phone] note* Diagnosis Neck pain- Primary Cervicalgia Foraminal stenosis of cervical region Arthropathy of cervical facet joint Cervical radiculopathy Brachial neuritis or radiculitis nos documented in this encounter [facility] Work Phone: [phone] note* Diagnosis Foraminal stenosis of cervical region- Primary Cervical radiculopathy Brachial neuritis or radiculitis nos [facility] Nasal congestion- Primary Other diseases of nasal cavity and sinuses Primary insomnia Persistent disorder of initiating or maintaining sleep Breast cancer screening by mammogram documented in this encounter [facility] Work Phone: [phone] note* Diagnosis Breast cancer screening by mammogram documented in this encounter [facility] Work Phone: [phone] note* Diagnosis Obstructive sleep apnea- Primary Obstructive sleep apnea (adult) (pediatric) Sleep related hypoxia Idiopathic sleep related nonobstructive alveolar hypoventilation Snoring Other dyspnea and respiratory abnormality Insomnia, unspecified type Fatigue, unspecified type Hypersomnia, unspecified Morning headache Headache Encounter to discuss test results Other specified counseling Non-restorative sleep Other sleep disturbances [facility] Diagnosis Obstructive sleep apnea- Primary Obstructive sleep apnea (adult) (pediatric) Sleep related hypoxia Idiopathic sleep related nonobstructive alveolar hypoventilation Snoring Other dyspnea and respiratory abnormality Insomnia, unspecified type Fatigue, unspecified type Hypersomnia, unspecified Morning headache Headache Non-restorative sleep Other sleep disturbances documented in this encounter [facility] note* Diagnosis BABATUNDE (obstructive sleep apnea)- Primary Obstructive sleep apnea (adult) (pediatric) Obstructive sleep apnea Obstructive sleep apnea (adult) (pediatric) Sleep related hypoxia Idiopathic sleep related nonobstructive alveolar hypoventilation Snoring Other dyspnea and respiratory abnormality Insomnia, unspecified type Fatigue, unspecified type Hypersomnia, unspecified Morning headache Headache Non-restorative sleep Other sleep disturbances documented in this encounter [facility] note* Diagnosis Obstructive sleep apnea- Primary Obstructive sleep apnea (adult) (pediatric) Sleep related hypoxia Idiopathic sleep related nonobstructive alveolar hypoventilation Snoring Other dyspnea and respiratory abnormality Insomnia, unspecified type Fatigue, unspecified type Hypersomnia, unspecified Morning headache Headache Non-restorative sleep Other sleep disturbances Encounter to discuss test results Other specified counseling Encounter for review of form with patient documented in this encounter [facility] note* Diagnosis Routine general medical examination at a health care facility- Primary Advanced care planning/counseling discussion Screening for alcohol problem Screening for alcoholism Moderate mixed hyperlipidemia not requiring statin therapy Preop examination Unspecified pre-operative examination documented in this encounter [facility] Work Phone: Hospital Discharge instructions* Attachments The following attachments cannot be sent through Care Everywhere. * Chest Pain Discharge Instructions (Syriac) [facility]: Reason for referral (narrative)* Diagnostic Procedure Only (Routine) - Authorized Specialty Diagnoses / Procedures Referred By Abel t Referred To Contact [facility] Diagnoses Encounter for gynecologic examination for high-risk patient covered by Medicare Encounter for screening mammogram for breast cancer Dense breast tissue Procedures LYRIC SCREENING W ANAYA SCREENING DIGITAL BREAST TOMOSYNTHESIS BI SCREENING MAMMOGRAPHY BI 2-VIEW BREAST INC Sara Reyes, MEDICAL RECEPTION SPECIALIST.PACKAGING SALES CONSULTANT [address] [place] [address] [facility] [address] [place] [address] Referral ID Status Reason Start Date Expiration Date Visits Requested Visits Authorized [id number] Authorized Auto-Generat ed Referral 09/17/2024 1 1 T [facility] for referral (narrative)* Diagnostic Procedure Only (Routine) - Closed Specialty Diagnoses / Procedures Referred By Contac t Referred To Contact BR IMAGING Diagnoses Encounter for gynecologic examination for high-risk patient covered by Medicare Encounter for screening mammogram for breast cancer Dense breast tissue Procedures LYRIC SCREENING W ANAYA SCREENING DIGITAL BREAST TOMOSYNTHESIS BI SCREENING MAMMOGRAPHY BI 2-VIEW BREAST INC Sara Reyes APRN.PACKAGING SALES CONSULTANT [address] [place] [address] [facility] [address] [place] [address] Referral ID Status Reason Start Date Expiration Date V isits Requested Visits Authorized [id number] Closed Auto-Generate d Referral 08/19/2023 09/17/2024 1 1 [facility] for referral (narrative)No reason for referral information [facility] Work Phone: reason for visit Narrative* Diagnostic Procedure Only (Routine) - Closed Specialty Diagnoses / Procedures Referred By Contac t Referred To Contact [facility] IMAGING Diagnoses Encounter for gynecologic examination for high-risk patient covered by Medicare Encounter for screening mammogram for breast cancer Dense breast tissue Procedures LYRIC SCREENING W ANAYA SCREENING DIGITAL BREAST TOMOSYNTHESIS BI SCREENING MAMMOGRAPHY BI 2-VIEW BREAST INC Sara Reyes APRN.PACKAGING SALES CONSULTANT [address] [place] [address] [facility] [address] [place] [address] Referral ID Status Reason Start Date Expiration Date V isits Requested Visits Authorized [id number] Closed Auto-Generate d Referral 08/19/2023 09/17/2024 1 1 [facility] N[facility]* Imaging (Routine) - Authorized Specialty Diagnoses / Procedures Referred By Abel t Referred To Contact Radiology Diagnoses Neck pain Procedures XR cervical spine complete 4-5 views Nicola Mark MD [address] [place] [address] Phone: tel: fax: Referral ID Status Reason Start Date Expiration Date Visits Requested Visits Authorized [id number] Authorized Perform Procedure 4 09/26/2025 1 1 [facility] Work Phone: Revqmf for visit Narrative* Imaging (Routine) - Authorized Specialty Diagnoses / Procedures Referred By Abel t Referred To Contact Radiology Diagnoses Cervical radiculopathy Procedures MR cervical spine wo IV contrast Nickolas Choe, MEDICAL RECEPTION SPECIALIST-PACKAGING SALES CONSULTANT [address] [place] [address] Phone: tel: fax: [address] [address] Phone: tel: fax: Referral ID Status Reason Start Date Expiration Date Visits Requested Visits Authorized [id number] Authorized Perform Procedure 4 10/02/2025 1 1 [facility] Work Phone: Regfwk for visit Narrative* Procedure (Routine) - Authorized Specialty Diagnoses / Procedures Referred By Abel t Referred To Contact Pain Medicine / Procedural Diagnoses Cervical radiculopathy Procedures Epidural Steroid Injection DC NJX DX/THER SBST INTRLMNR CRV/THRC W/IMG GDN Nicoklas Choe, MEDICAL RECEPTION SPECIALIST-PACKAGING SALES CONSULTANT [address] [place] [address] Phone: tel: fax: [facility] [place] [address] [place] [phone] fax: Referral ID Status Reason Start Date Expiration Date Visits Requested Visits Authorized [id number] Authorized Perform Procedure 4 10/23/2025 1 1 [facility] Work Phone: Reason for visit Narrative* Imaging (Routine) - Authorized Specialty Diagnoses / Procedures Referred By Abel cardenas Referred To Contact Radiology Diagnoses Breast cancer screening by mammogram Procedures BI mammo bilateral screening tomosynthesis Nicola Mark MD [address] [address] Phone: tel: fax: Referral ID Status Reason Start Date Expiration Date Visits Requested Visits Authorized [id number] Authorized Perform Procedure 12/27/2024 12/27/2025 1 1 [facility] Work Phone: Summary Purpose Family History No Family History Records FoundUnknown Family Member Name Dates Details FHx: malignant neoplasm of b reast: Mother(V16.3, Z80.3) Status:Active Family history of acute panc reatitis: Father(V18.59, Z83.79) Status:Active Family history of chronic ob structive pulmonary disease: Father(V17.6, Z82.5) Status:Active Bipolar depression: Son Status:Active Unknown Family Member Name Dates Details FHx: malignant neoplasm of b reast: Mother(V16.3, Z80.3) Status:Active Family history of acute panc reatitis: Father(V18.59, Z83.79) Status:Active Family history of chronic ob structive pulmonary disease: Father(V17.6, Z82.5) Status:Active Bipolar depression: Son Status:Active Unknown Family Member Name Dates Details FHx: malignant neoplasm of b reast: Mother(V16.3, Z80.3) Status:Active Family history of acute panc reatitis: Father(V18.59, Z83.79) Status:Active Family history of chronic ob structive pulmonary disease: Father(V17.6, Z82.5) Status:Active Bipolar depression: Son Status:Active Advance Directives No Advanced Directives Records FoundDocuments on File Type Date Recorded 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 Advance Directive(s) 07/06/2021 4:12 PM Advance Directive(s) 07/10/2020 11:28 AM Chief Complaint PHYSICAL Reason for Referral Specialty Diagnoses / Procedures Referred By Contac t Referred To Contact Sleep Lab Diagnoses Obstructive sleep apnea syndrome Procedures Home sleep apnea test (HSAT) Sergio Navas MD [address] [place] [address] Referral ID Status Reason Start Date Expiration Date V isits Requested Visits Authorized [id number] Pending Review 09/16/2023 09/15/2024 1 1 Chief Complaint and Reason for Visit Chief Complaint Admit Date CERVICAL SPINE January 10, 2025 8:50 am RM 3 January 10, 2025 9:24 am cervical spine April 02, 2025 1:13p m Reason for Visit Admit Date Cervical radiculopathy January 10, 2025 8 :50am Spondylolisthesis of cervical region Mar 2024 8:50am Additional Source Comments INFORMATION SOURCE (unrecogn ized section and content) DATE CREATED AUTHOR 05/02/2018 [facility] DATE CREATED AUTHOR AUTHOR'S ORGANIZ ATION 05/30/2021 [employer] DATE CREATED AUTHOR AUTHOR'S ORGANIZ ATION 07/14/2022 [facility] DATE CREATED AUTHOR AUTHOR'S ORGANIZ ATION 08/26/2023 [facility] DATE CREATED AUTHOR AUTHOR'S ORGANIZ ATION 10/16/2024 [facility] DATE CREATED AUTHOR AUTHOR'S ORGANIZ ATION 01/12/2025 [facility] DATE CREATED AUTHOR AUTHOR'S ORGANIZ ATION 03/11/2025 [facility] DATE CREATED AUTHOR AUTHOR'S ORGANIZ ATION 03/12/2025 [facility] DATE CREATED AUTHOR AUTHOR'S ORGANIZ ATION 03/20/2025 [facility] DATE CREATED AUTHOR AUTHOR'S ORGANIZ ATION 04/08/2025 [facility] DATE CREATED AUTHOR AUTHOR'S ORGANIZ ATION 04/10/2025 [facility] Source Comments (unrecognize d section and content) In the event this informatio n is protected by the Federal Confidentiality of Alcohol and Drug Abuse Patient Records regulations: The Federal rules restrict any use of the information to criminally investigate or prosecute any alcohol or drug abuse patient.[facility] the event this information is protected by the Federal Confidentiality of Alcohol and Drug Abuse Patient Records regulations: The Federal rules restrict any use of the information to criminally investigate or prosecute any alcohol or drug abuse patient.[facility] the event this information is protected by the Federal Confidentiality of Alcohol and Drug Abuse Patient Records regulations: The Federal rules restrict any use of the information to criminally investigate or prosecute any alcohol or drug abuse patient.[facility] the event this information is protected by the Federal Confidentiality of Alcohol and Drug Abuse Patient Records regulations: The Federal rules restrict any use of the information to criminally investigate or prosecute any alcohol or drug abuse patient.[facility] the event this information is protected by the Federal Confidentiality of Alcohol and Drug Abuse Patient Records regulations: The Federal rules restrict any use of the information to criminally investigate or prosecute any alcohol or drug abuse patient.[facility] Reason for Visit (unrecogniz ed section and content) Reason Comments Refill Request Reason Onset Date Comments Refill Request 04/10/2023 Reason Comments Yearly Exam Reason Comments Welcome To Medicare Reason Comments Follow-up CPAP Reason Comments Follow-up 3 MO FU Reason Comments Neck Pain NPV here for neck pa in radiating into bilat shoulders L>R and weakness, intermittent numbness and tingling in bilat upper extremities rates pain 6/10 now and 9/10 at worst upon waking is the worst, hard to hold her head up, constant aching, stabbing with turning her head or increased pain. She is going to PT, Chiropractor, massage therapy, she takes Advil dual action or tylenol, OTC Hemp cream, heat more than ice these help her pain but she is still having pain that affects her ADLs. Specialty Diagnoses / Procedures Referred By Abel cardenas Referred To Contact Pain Medicine Diagnoses Neck pain Nicola Mark MD [facility] [place] [address] Phone: tel: fax: Referral ID Status Reason Start Date Expiration Date Visits Requested Visits Authorized [id number] Authorized Specialty Services Required 4 09/25/2025 1 1 Reason Comments Chest Pain To er per afd from h ome with c/o chest pain. States this morning around 1000 while playing pickle ball she started feeling dizzy and thirsty, denied any chest pain at that time. States she was relaxing since and started having chest pain and sob. Ems gave asa 324mg and nitroglycerin x 1. Reason Comments Fatigue Excessive Sweating Ankle Pain Rolled Left ankle Reason Comments Pain FUV for ry neck li n 6/10 pain score today after taking Aleve this morning. Pain is described as sharp, dull, ache which is described as constant at different levels of pain. Pain is caused by daily activity but laying down not lifting her head will help decrease the pain. Patient states she stopped taking the gabapentin. She had a chest pain which took her to the ER and she wasn't sure if the gabapentin was the cause since she had just started taking it. FELIX = 42/100. Alcohol screen is negative. Reason Comments Follow-up FOLLOW U C6/7 STEVE DO NE ON 11/16/2024 NO RELIEF, SHE STATES THAT WHEN SHE WAS INJECTED SHE HAD PAIN THAT WENT INTO BOTH ARMS DOWN TO HER FINGERTIPS AND SHE COULDN'T MOVE THEM FOR 3 MINUTES, SHE STATES SHE HAS HAD INCREASED NECK AND LEFT SHOULDER PAIN SINCE THE PROCEDURE, SHE STATES SHE HAS NOTICED THAT HER HANDS HAVE BEEN VERY COLD SINCE THE PROCEDURE, Reason Comments Follow-up 3 mo fu Reason Comments New Patient Sleep Apnea Specialty Diagnoses / Procedures Referred By Abel cardenas Referred To Contact Sleep Medicine Diagnoses Obstructive sleep apnea Nicola Mark MD [address] [place] [address] Phone: tel: fax: Sunitha Moran, MEDICAL RECEPTION SPECIALIST-PACKAGING SALES CONSULTANT [address] [place] [address] Phone: tel: fax: Referral ID Status Reason Start Date Expiration Date V isits Requested Visits Authorized [id number] Pending Review 09/27/2024 10/22/2025 1 1 Reason Comments Sleep Problem Specialty Diagnoses / Procedures Referred By Abel t Referred To Contact Diagnoses Obstructive sleep apnea Sleep related hypoxia Snoring Insomnia, unspecified type Fatigue, unspecified type Hypersomnia, unspecified Morning headache Non-restorative sleep Procedures SLEEP STUDY - DIAGNOSTIC DC POLYSOM 6/>YRS SLEEP 4/> ADDL TANNER ATTND Sunitha Moran, MEDICAL RECEPTION SPECIALIST-PACKAGING SALES CONSULTANT [address] [place] [address] Phone: tel: Referral ID Status Reason Start Date Expiration Date Visits Re quested Visits Authorized [id number] Closed 01/03/2025 01/28/2026 1 1 Specialty Diagnoses / Procedures Referred By Contac t Referred To Contact Diagnoses Obstructive sleep apnea Sleep related hypoxia Snoring Insomnia, unspecified type Fatigue, unspecified type Hypersomnia, unspecified Morning headache Non-restorative sleep Procedures SLEEP STUDY - TITRATION DC POLYSOM 6/>YRS SLEEP W/CPAP 4/> ADDL TANNER ATTND Sunitha Moran, MEDICAL RECEPTION SPECIALIST-PACKAGING SALES CONSULTANT [address] [place] [address] Phone: tel: Referral ID Status Reason Start Date Expiration Date Visits Re quested Visits Authorized [id number] Closed 01/03/2025 01/28/2026 1 1 Reason Comments Follow-up Obstructive Sleep Apnea Reason Comments Medicare Annual Wellness Visit Teresa cardenas Pre-op clearance, cervical spine Care Teams (unrecognized sec tion and content) Slot Machine Floor Person Relationship Specialty Start Date End Date Sergio Navas PCP - General Family Practice 11/19/13 Slot Machine Floor Person Relationship Specialty Start Date End Date Sergio Navas MD PCP - General Family Medicine 11/19/13 Slot Machine Floor Person Relationship Specialty Start Date End Date Sergio Navas MD PCP - General Family Medicine 11/19/13 Slot Machine Floor Person Relationship Specialty Start Date End Date Sergio Navas MD PCP - General Family Medicine 11/19/13 Slot Machine Floor Person Relationship Specialty Start Date End Date Sergio Navas MD PCP - General Family Medicine 11/19/13 Slot Machine Floor Person Relationship Specialty Start Date End Date Sergio Navas MD [address] [place] [address] PCP - General 05/29/21 Sergio Navas MD [address] [place] [address] PCP - [employer] Medicare Advantage PCP 04/07/23 Slot Machine Floor Person Relationship Specialty Start Date End Date Sergio Navas MD [address] [facility] [place] [address] PCP - General 05/29/21 Sergio Navas MD [address] [place] [address] PCP - [employer] Medicare Advantage PCP 04/07/23 Slot Machine Floor Person Relationship Specialty Start Date End Date Sergio Navas MD [address] [address] PCP - [employer] Medicare Advantage PCP 04/07/23 Nicloa Mark MD [address] [address] PCP - General Family Medicine 09/25/24 Slot Machine Floor Person Relationship Specialty Start Date End Date Sergio Navas MD [address] [address] PCP - [employer] Medicare Advantage PCP 04/07/23 Nicola Mark MD [address] [address] PCP - General Family Medicine 09/25/24 Slot Machine Floor Person Relationship Specialty Start Date End Date Sergio Navas MD [address] [place] [address], [place] [address] PCP - [employer] Medicare Advantage PCP 04/07/23 Nicola Mark MD [address] [place] [address], [place] [address] PCP - General Family Medicine 09/25/24 Slot Machine Floor Person Relationship Specialty Start Date End Date Sergio Navas MD [address] [address] PCP - [employer] Medicare Advantage PCP 04/07/23 Nicola Mark MD [address] [address] PCP - General Family Medicine 09/25/24 Slot Machine Floor Person Relationship Specialty Start Date End Date Sergio Navas MD [address] [address] PCP - [employer] Medicare Advantage PCP 04/07/23 Nicola Mark MD [address] [address] PCP - General Family Medicine 09/25/24 Slot Machine Floor Person Relationship Specialty Start Date End Date Sergio Navas MD [address] [place] [address] PCP - [employer] Medicare Advantage PCP 04/07/23 Nicola Mark MD [address] [place] [address] PCP - General Family Medicine 06/11/24 Slot Machine Floor Person Relationship Specialty Start Date End Date Sergio Navas MD [address] [address] PCP - [employer] Medicare Advantage PCP 04/07/23 Nicola Mark MD [address] [address] PCP - General Family Medicine 09/25/24 Slot Machine Floor Person Relationship Specialty Start Date End Date Sergoi Navas MD [address] [address] PCP - [employer] Medicare Advantage PCP 04/07/23 Nicola Mark MD [address] [address] PCP - General Family Medicine 09/25/24 Slot Machine Floor Person Relationship Specialty Start Date End Date Sergio Navas MD [address] [address] PCP - [employer] Medicare Advantage PCP 04/07/23 Nicola Mark MD [address] [address] PCP - General Family Medicine 09/25/24 Slot Machine Floor Person Relationship Specialty Start Date End Date Sergio Navas MD [address] [address] PCP - [employer] Medicare Advantage PCP 04/07/23 Nicola Mark MD [address] [address] PCP - General Family Medicine 09/25/24 Slot Machine Floor Person Relationship Specialty [place] [address] [place] [address] PCP - General Family Medicine 10/02/24 Sunitha Moran, MEDICAL RECEPTION SPECIALIST-PACKAGING SALES CONSULTANT [address] [place] [address] Nurse Practitioner Sleep Medicine 01/03/25 Slot Machine Floor Person Relationship Specialty Start Date End Date Sergio Navas MD [address] [place] [address] PCP - [employer] Medicare Advantage PCP 04/07/23 Nicola Mark MD [address] [place] [address] PCP - General Family Medicine 09/25/24 Slot Machine Floor Person Relationship Specialty Start Date End Date Nicola Mark MD [address] [place] [address] PCP - General Family Medicine 10/02/24 Sunitha Moran, MEDICAL RECEPTION SPECIALIST-PACKAGING SALES CONSULTANT [address] [place] [address] Nurse Practitioner Sleep Medicine 01/03/25 Slot Machine Floor Person Relationship Specialty Start Date End Date Nicola aMrk MD [address] [place] [address] PCP - General Family Medicine 10/02/24 Sunitha Moran, MEDICAL RECEPTION SPECIALIST-PACKAGING SALES CONSULTANT [address] [place] [address] Nurse Practitioner Sleep Medicine 01/03/25 Slot Machine Floor Person Relationship Specialty Start Date End Date Nicola Mark MD [address] [place] [address] PCP - General Family Medicine 10/02/24 Sunitha Moran, MEDICAL RECEPTION SPECIALIST-PACKAGING SALES CONSULTANT [address] [place] [address] Nurse Practitioner Sleep Medicine 01/03/25 Team Status: Active Member Role Status Dates Dr. Nicola Mark MD Primary Care Provider Active Team Status: Inactive Member Role Status Dates Dr. Be Macias MD Attending Provider Active Start: January 10, 2025 End: January 10, 2025 Team Status: Inactive Member Role Status Dates Dr. Benjamin Lombardi MD Attending Provider Active S tart: January 10, 2025 End: January 10, 2025 Team Status: Inactive Member Role Status Dates Dr. Be Macias MD Attending Provider Active Start: April 02, 2025 End: April 02, 2025 Dr. Nicola Mark MD Primary Care Provider Active Start: April 02, 2025 End: April 02, 2025 Dr. Nicola Mark MD Referring Provider Active Start: April 02, 2025 End: April 02, 2025 Slot Machine Floor Person Relationship Specialty Start Date End Date Sergio Navas MD [address] [address] PCP - [employer] Medicare Advantage PCP 04/07/23 Nicola Mark MD [address] [address] PCP - General Family Medicine 09/25/24 Scheduled Active and Recently Administ ered Medications (unrecognized section and content) Medication Order 10/07/2024 10/08/2024 10/09/2024 alum-mag hydroxide-simeth (Mylanta) 200-200-20 mg/5 mL oral suspension 30 mL (COMPLETED) 30 mL, oral, Once, On Tue10/09/24 at 1735, For 1 dose 1801 (Given - Provid er: Mague Kramer RN) lidocaine (Xylocaine) 2 % mouth solution 15 mL (COMPLETED) 15 mL, oral, Once, On Tue10/09/24 at 1735, For 1 dose 1802 (Given - Provid er: Mague Kramer RN) Goals (unrecognized section and content) Goals may be documented in a n alternate section FOR RECORDS PERTAINING TO PATIENTS WHO ARE OR HAVE BEEN ENROLLED IN A CHEMICAL DEPENDENCY/SUBSTANCEABUSE PROGRAM, SOME INFORMATION MAY BE OMITTED. This clinical summary was aggregated from multiple sources. Caution should be exercised in using it in the provision of clinical care. This summary normalizes information from multiple sources, and as a consequence, information in this document may materially change the coding, format and clinical context of patient data. In addition, data may be omitted in some cases. CLINICAL DECISIONS SHOULD BE BASED ON THE PRIMARY CLINICAL RECORDS. [facility] [facility]. provides no warranty or guarantee of the accuracy or completeness of information in this document.
[2025-04-10] MEDS: Lactated Ringers 1,000 ML 15 ML IV (05:55)
[2025-04-10] MEDS: Magnesium 1 GM over 15 mins IV (06:00)
[2025-04-10] MEDS: Acetaminophen 500 MG Tablet 1000 MG PO (06:23)
--- NOTE | 2025-04-10 06:27 | PCM.PRE.AN2 ---
ASA Classification* ASA Classification ASA Classification: 2 (BABATUNDE) Assessment & Plan Anesthesia* Anesthesia Assessment Anesthesia Assessment: Discussed sedation and/or anesthesia options, risks, benefits, and alternatives with patient/parents/legal guardian/POA. Questions invited. The patient/parents/legal guardian/POA seems to understand and agrees to proceed with anesthesia plan. Reviewed the physical assessment, medical history, allergy history and patient home medications list prior to surgery/procedure/anesthetic and documented any changes. Performed airway and anesthesia risk assessments. Anesthesia Type Anesthesia Type: General History Source History Obtained from:: Patient and Chart Anesthesia Focused Assessment* Temperature: 98.2 F Pulse Rate: 80 Blood Pressure: 133/77 Respiratory Rate: 18 Pulse Ox: 99 Oxygen Delivery Method: Room Air Airway Assessment Mouth opens: >3 cm Mallampati Score: II Teeth Condition: Intact Neck Range of motion (ROM): Limited ROM Focused Labs Anesthesia Preop lab: CBC WBC 6.5 K/mm3 (4.4-11.0) 04/02/25 12:18 04/02/25 RBC 5.05 M/mm3 (4.2-5.4) 04/02/25 12:18 04/02/25 Hgb 14.8 g/dL (12.0-15.0) 04/02/25 12:18 04/02/25 Hct 46.0 % (37-47) 04/02/25 12:18 04/02/25 Plt Count 412 K/mm3 (150-450) 04/02/25 12:18 04/02/25 CHEMISTRY Potassium 5.1 mmol/L (3.3-5.1) 04/02/25 12:18 04/02/25 Sodium 139 mmol/L (133-145) 04/02/25 12:18 04/02/25 Magnesium 2.3 mg/dL (1.5-2.2) H 04/02/25 12:17 04/02/25 BUN 15 mg/dL (4-19) 04/02/25 12:18 04/02/25 Creatinine 0.99 mg/dL (0.70-1.20) 04/02/25 12:18 04/02/25 Glucose 88 mg/dL (70-99) 04/02/25 12:18 04/02/25 COAG Pre-Assessment Diagnosis/Proposed Procedure Planned Operative Procedure(s): ANTERIOR CERVICAL DISC FUSION C3-4 C4-5 C5-6 Anesthesia History Anesthesia History - residential team leader: Anesthesia History - residential team leader Hx Hospitalization No 04/02/25 08:31 Any Problems With Anesthesia Yes: SLOW TO AWAKEN 04/02/25 08:31 Cholinesterase deficiency No 04/02/25 08:31 You/Your Family Experience No 04/02/25 08:31 fever (hyperthermia) with Relationship Recent Exposure to Contagious No 04/10/25 06:16 Disease Does patient have nerve No 04/02/25 08:31 stimulator Patient instructed to have device shut off --Does patient have Pacemaker No 04/10/25 06:16 or ICD? When Was Last Pacemaker Check QUESTION #4 FULL TEXT: You/Your Family Experience fever (hyperthermia) with Anesthesia Last Oral Intake Last Oral intake: Last Oral Intake NPO since 03:45 04/10/25 06:16 Meds taken in AM with sips of No 04/10/25 06:16 water? Meds patient instructed to take am of surgery PONV PONV - residential team leader: PONV - residential team leader Female Yes 04/02/25 08:31 HX of Motion Sickness No 04/02/25 08:31 HX of N/V After Surgery No 04/02/25 08:31 Non-Smoker Yes 04/02/25 08:31 Duration of Surgery greater Yes 04/02/25 08:31 than 60 minutes Number of Risk Factors 3 04/02/25 08:31 PONV Score Moderate Risk 04/02/25 08:31 Height & Weight Height & Weight: Anesthesia: Height & Weight Height 5 ft 6 in 04/10/25 06:16 Weight: 67 kg 04/10/25 06:16 Body Mass Index (BMI) 23.8 04/10/25 06:16 Respiratory Assessment Respiratory Assessment - residential team leader: Respiratory Tract Infection Hx - residential team leader Hx Respiratory Tract Infection No 04/02/25 08:31 STOP Sleep Apnea STOP Sleep Apnea - residential team leader: STOP Sleep Apnea - residential team leader Hx Hypertension No 04/02/25 08:31 Hx Sleep Apnea Yes: COMPLEX SLEEP APNEA 04/02/25 08:31 CPAP Yes: JUST TESTED NO MACHINE 04/02/25 08:31 YET BIPAP No 04/02/25 08:31 Do you snore loudly (louder than talking or can be heard Do you often feel tired/ fatigued/ sleepy during daytime? Has anyone observed you stop breathing during sleep? STOP Results Positive 04/02/25 08:31 QUESTION #5 FULL TEXT : Do you snore loudly (louder than talking or can be heard through closed doors)? Tobacco Use History Tobacco Use History - residential team leader: Tobacco Use History - residential team leader Tobacco Use Smoking Status Former smoker 04/02/25 08:31 Hx Tobacco Use No 04/02/25 08:31 Years Smoking Packs Smoked per Day Smoking Cessation Date was No - quit smoking greater 04/02/25 08:31 within the last 15 years than 15 years ago Hx Smoking Cessation Date 04/30/08 04/02/25 08:31 Hx Smoking Cessation No 04/02/25 08:31 Counseling Hematologic Medial History Hematologic Hx - residential team leader: Hematologic Medical Hx - bid clerk Hx of Blood Transfusion No 04/02/25 08:31 Hx of Transfusion in last 3 No 04/02/25 08:31 Months Date of Last Transfusion (if within last 3 months) Ever experience any problems No 04/02/25 08:31 with transfusion(s)? Specify any problems Hx of Preganancy in last 3 No 04/02/25 08:31 Months Nurse Filling Out Transfusion DSCHRIBER 04/02/25 08:31 & Questions: Date: 04/02/25 04/02/25 08:31 Time: 08:34 04/02/25 08:31 Patient unable to answer at this time (ie. confused, unrespo /Reproduction History /Reproductive History - residential team leader: /Reproductive Hx- residential team leader Hx Now No 04/02/25 08:31 Gestational Age (in weeks): EDC: Hx Hx Para Hx Section SAB No 04/02/25 08:31 Active Medications Active Medications: Current Medications Generic Name Dose Route Start Last Admin Trade Name Freq PRN Reason Stop Dose Admin Acetaminophen 1,000 mg 04/10/25 07:30 04/10/25 06:23 Acetaminophen 500 Mg Tablet PO 04/10/25 07:31 1,000 mg PREOP ONE Administration Dexamethasone Sodium Phosphate 8 mg 04/10/25 07:30 Dexamethasone 10 Mg/Ml Vial IV 04/10/25 07:31 INTRAOP ONE Dexamethasone Sodium Phosphate 4 mg 04/10/25 07:30 Dexamethasone 4 Mg/Ml Vial IV 04/10/25 07:31 POSTOP ONE Clindamycin Phosphate 900 mg in 50 mls @ 75 mls/hr 04/10/25 07:30 Cleocin IV 04/10/25 08:09 INTRAOP ONE Tranexamic Acid 1,000 mg/ 110 mls @ 440 mls/hr 04/10/25 07:30 Sodium Chloride IV 04/10/25 07:44 INTRAOP ONE Tranexamic Acid 1,000 mg/ 110 mls @ 440 mls/hr 04/10/25 07:30 Sodium Chloride IV 04/10/25 07:44 INTRAOP ONE Magnesium Sulfate 1 gm/ 102 mls @ 408 mls/hr 04/10/25 07:30 04/10/25 06:00 Dextrose IV 04/10/25 07:44 408 mls/hr INTRAOP ONE Administration Lactated Ringer's 1,000 mls @ 15 mls/hr 04/10/25 05:45 04/10/25 05:55 IV 15 mls/hr .Q48H SHAKEEL Administration Insulin Human Lispro 1 - 6 unit 04/10/25 07:30 Insulin Lispro 100 Unit/Ml Insuln.Pen SC 04/10/25 18:00 Q4H PRN PRN BG>/= 180, SEE PROTOCOL Protocol PFSH Medical History Wears glasses Post-menopausal Bladder disease Restless legs Back pain Migraine headache Syncope History of ulceration Heartburn Former smoker CPAP (continuous positive airway pressure) dependence History of pain when walking History of edema Chest pain Home Medications ?Medication ?Instructions ?Recorded ?Last Taken ?Type fexofenadine 60 mg-pseudoephedrine 1 tab PO Q12H PRN sinus symptoms 01/10/25 04/08/25 History ER 120 mg tablet,ext.release,12 hr (Leelee-D 12 Hour) multivitamin 1 tab PO QAM 01/10/25 04/08/25 History acetaminophen 500 mg tablet 1,500 mg PO Q6H PRN pain 04/02/25 04/09/25 16:00 History (Acetaminophen Extra Strength) cyclobenzaprine 10 mg tablet 10 mg PO TID PRN PRN muscle spasm 04/02/25 Unknown History meloxicam 7.5 mg tablet 7.5 mg PO DAILY 04/02/25 03/31/25 History Allergy/AdvReac Type Severity Reaction Status Date / Time Penicillins Allergy Rash Verified 04/10/25 06:15 Surgical History Hx of colonoscopy Hx of bladder repair surgery History of lumbar discectomy History of cholecystectomy Social History household members: spouse Smoking Status: Former smoker alcohol intake: current alcohol intake frequency: a few times a week what type of physical activity do you participate in: other details: pickleball 4x week Review of Systems (Anesthesia) ROS Narrative System reviewed and no additional complaints, except as documented. Physical Exam Const alert, oriented x3 and average body habitus Resp normal respiratory effort, normal air movement and clear to auscultation bilaterally Cardio regular rate, regular rhythm, no murmurs and diaphoretic
--- NOTE | 2025-04-10 07:16 | PCM.HP.BLA ---
History and Physical Date of Admission: 04/10/25 MR#: [id number] Acct: [id number] Name: NICOLA GAGNON Rep #: [id number] : 1960 Provider: Dr. Be Macias MD Age/Sex: 64/F Location[place] [facility] Status: Signed Intake Vital Signs 01/10/2509:09 Height 5 ft 7 in Weight: 151 lb 6 oz BMI 23.7 Intake Visit Reasons: cervical spine Chief Complaint: pre-op Allergies Penicillins Allergy (Verified 04/02/25 13:35) Rash Medications ?Medication ?Instructions ?Recorded ?Confirmed ?Type fexofenadine 60 mg-pseudoephedrine 1 tab PO Q12H PRN sinus symptoms 01/10/25 04/02/25 History ER 120 mg tablet,ext.release,12 hr (Leelee-D 12 Hour) multivitamin 1 tab PO QAM 01/10/25 04/02/25 History acetaminophen 500 mg tablet 1,500 mg PO Q6H PRN pain 04/02/25 04/02/25 History (Acetaminophen Extra Strength) cyclobenzaprine 10 mg tablet 10 mg PO TID PRN PRN muscle spasm 04/02/25 04/02/25 History meloxicam 7.5 mg tablet 7.5 mg PO DAILY 04/02/25 04/02/25 History Have you fallen in the past year?: No PFSH Medical History Wears glasses Post-menopausal Bladder disease Restless legs Back pain Migraine headache Syncope History of ulceration Heartburn Former smoker CPAP (continuous positive airway pressure) dependence History of pain when walking History of edema Chest pain Surgical History Hx of colonoscopy Hx of bladder repair surgery History of lumbar discectomy History of cholecystectomy Social History household members: spouse Smoking Status: Former smoker alcohol intake: current alcohol intake frequency: a few times a week what type of physical activity do you participate in: other details: pickleball 4x week HPI cervical spine Details: This documentation accurately reflects the service provided and the decisions made by me, Dr. Be Macias MD 04/02/25 1329. Part of today?s visit was documented by Alise SOL, acting as scribe. NICOLA GAGNON is a 64 year old F here today for preop, cervical spine, dos 04/10/25. She continues to have neck pain radiating to both upper extremities, with numbness and weakness in hands. 01/10/25: NICOLA GAGNON is a 64 year old F NEW patient here today for her cervical spine. She has been having neck pain for about 15 years and has significantly gotten worse within the last year. She has pain at the base of her neck that can extend up to the base of her skull with occasional muscular pain in her posterior left shoulder. She does occasionally hear a crunching in her neck. Her neck li does cause her to get headaches almost everyday which has been going on for many years. She does have a hx of migraines but notes that those are different than the headaches she gets. She denies balance issues but does get some dizziness. She gets the dizziness if she stands up too fast or if she stands up too fast from bending over in pickleball. 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 She did have an MRI at of her cervical spine in October. She also had some xrays shortly before she had her MRI done as well. She did do PT in October for 6 weeks that didn't help her and some days made her symptoms worse. She did have an epidural steroid injection on 11/[address] Naveed Lam at pain management in [place] but it didn't give her any relief. She does get some achy pain in her arms bilaterally. Ortho Exam General General: Yes no acute distress Neurologic: Yes alert and Yes oriented x3 Spine SPINE TESTING CERVICAL THORACIC LUMBAR Musculoskeletal Strength 0=absent - 5=normal Details: Examination the neck shows midline and left paraspinal tenderness in the lower neck region. Neurologic motion of upper extremities shows 5 x 5 power in all muscle groups normal sensations in all dermatomes. Hanna's negative. Romberg's is negative. Gait gait shows no imbalance. Coding Level of Care Code Off vis,est,level 4 Diagnoses Spondylolisthesis of cervical region M43.12 Cervical radiculopathy M54.12 Time Spent (min) 35 Assessment and Plan Assessment and Plan (1) Spondylolisthesis of cervical region: Status: Acute (2) Cervical radiculopathy: Status: Acute Plan Again reviewed previous imaging. X-rays of the cervical spine as well as MRI done in October were reviewed with the patient. These show C5-6 and C6-7 disc height loss, C4-5 spondylolisthesis with dynamic instability on flexion-extension views. Loss of cervical lordosis with angular kyphosis at C4-5 on flexion. MRI shows multilevel disc degeneration with C3-4 severe left foraminal stenosis, C4-5 bilateral moderate foraminal stenosis, C5-6 central and right worse than left foraminal stenosis. C6-7 mild right foraminal stenosis noticed. Again discussed imaging findings in detail. Patient has significant headaches and has reversal of cervical lordosis and instability at C4-5. She also has significant radicular symptoms going in both upper extremities without any difficulty with dexterity. Explained to her that she has unstable spondylolisthesis C4-5 along with significant radiculopathy. At this time she is not hyperreflexic and other than mild subjective weakness in the hands does not have significant dexterity or balance issues. Explained to her that radiculopathy can have waxing waning features with time and have significant flareups. Discussed treatment options which include continued nonoperative treat measures versus surgery. Patient has tried a prolonged course of physical therapy as well as epidural injections through pain management without significant help. Her symptoms are affecting her quality of life. Sleep is significantly disturbed because of the headaches. Her pain worsens during the day. She wishes to proceed with surgical intervention. Surgical options were discussed. Because of significant radiculopathy and foraminal stenosis I recommend C3-6 ACDF. All risk benefits and alternatives were discussed in detail. Restrictions after surgery were discussed. The risks include but are not limited to infection, bleeding, hematoma formation, need for further surgery, dysphagia, dysphonia, recurrent laryngeal nerve injury, Nancy syndrome, need for further surgery, hardware failure, pseudoarthrosis, adjacent segment degeneration, DVT, pulm embolism, pneumonia, atelectasis, cardiopulmonary event, persistent pain, persistent numbness and weakness. Patient understands and agrees to proceed with surgery. Consent was signed.
--- NOTE | 2025-04-10 07:24 | RAD_ITS ---
PROCEDURE: CERV SPINE 2 OR 3 VIEWS 04/10/2025 REASON FOR EXAM: ANTERIOR CERVICAL DISC FUSION C3-4, C4-5, AND C5-6 TECHNIQUE: 10 images were obtained intraoperatively with a C-arm during ACDF. COMPARISON: Cervical spine, 01/10/2025. FINDINGS: 10 images were obtained intraoperatively with a C-arm during ACDF C3 through C6. Fluoro time: 12.6 seconds. Cumulative dose: 1.97 mGy. RAD/Cerv Spine 2 or 3 Views IMPRESSION: As per findings. Reading Location: [id number]
[2025-04-10] MEDS: Clindamycin 900 MG/50 ML BAG 75 MG IV ×3 (07:27→22:46)
[2025-04-10] MEDS: dexAMETHasone 10 MG/ML Vial 8 MG IV (07:32)
[2025-04-10] MEDS: TRANEXAMIC ACID 1,000 MG in 0.9% Normal Saline (100mL Bag) 100 ML 440 MG IV ×2 (07:34→09:51)
--- NOTE | 2025-04-10 10:29 | PCM.POST.ANE ---
Anesthesia: Postop Eval I Current Vital Signs Temperature: 97.4 F Pulse Rate: 91 Blood Pressure: 127/58 Respiratory Rate: 16 Pulse Ox: 98 Assessment Airway patent: Yes Spontaneous unlabored respirations: Yes nausea: No Vomiting: No Anesthesia Complication: No Fluid Hydration Crystalloid volume administer (ml): 1,500 Total IV fluid infused: 1,500 Progress Note Anesthesia document: Postop Eval 1 completed: Yes
--- NOTE | 2025-04-10 10:42 | OP.PCM_ITS ---
Procedures Musculoskeletal 20xxx-29xxx: Other Procedure See Report Operative Report (Standard) Operative Information Date of Procedure: 04/10/25 Pre-Operative Diagnosis: C3-4, C4-5 spondylolisthesis, C3-6 disc degeneration with stenosis, radiculomyelopathy Post-Operative Diagnosis: Same Surgery/Procedure Performed: C3-6 ACDF veterinary manager: Yes Warehouse Shipping Associate: Claudia Kelley Tasks completed by plumber's assistant: Closing, Removing tissue, Implanting device, Hemostasis: Electrocautery and Retracting Type of Anesthesia: General RN Documented Start/Stop Times: Operation Date: 04/10/25 07:30 Case Time Into Pre-Op 04/10/25 05:41 Out of Pre-Op 04/10/25 07:23 Anesthesia Start 04/10/25 07:27 Into Room 04/10/25 07:27 Procedure Start 04/10/25 07:57 Procedure End 04/10/25 10:16 Anesthesia End 04/10/25 10:22 Out of Room 04/10/25 10:22 Into Recovery 04/10/25 10:25 Procedure Start Time: 07:57 Procedure Stop Time: 10:16 Select all DRAINS/GRAFTS/IMPLANTS that apply: Drains Drain details: [place] , Graft Graft details: Structural allograft cortico cancellous strut and Implanted device Implanted device details: Medtronic Far[place] Elite plate instrumentation Estimated Blood Loss: 40 cc Specimen collected: No Description of surgery: Preoperative diagnosis: C3-6 disc degeneration with stenosis, C3-4 and C4-5 spondylolisthesis, radiculomyelopathy Postoperative diagnosis: Same Name of procedure: C3-6 anterior cervical discectomy and fusion with plate instrumentation - Anterior cervical fusion C3-4, CPT code 50595 - Anterior plate instrumentation C3-6, CPT code 70989/59 - Anterior cervical fusion C4-5, CPT code 82853/51 - Anterior cervical fusion C5-6, CPT code 49209/51 - C3-4 structural allograft bone with DBX, CPT code 70736 - C4-5 structural allograft bone with DBX, CPT code 86652 - C5-6 structural allograft bone with DBX, CPT code 66039 Attending surgeon: Be Macias M.D. Anesthesia: Gen. endotracheal Estimated blood loss: 40 mL Complications: None Instrumentation used: Medtronic Far[place] Elite plate, LASR corticocancellous block Indications: The patient is a pleasant 64-year-old lady who presented with neck pain, bilateral upper extremity radiation, weakness, worsening dexterity. Imaging showed C3-4, C4-5 spondylolisthesis, C3-6 disc degeneration with stenosis with cord indentation without cord signal changes. After prolonged course of nonsurgical treatment, the patient requested surgical treatment. All risks and benefits of the procedure were explained to the patient. The risks include but are not limited to infection, bleeding, injury to nerves and vessels, vertebral artery injury, spinal cord injury, paralysis, vocal cord paralysis, injury to esophagus, pseudoarthrosis, need for further procedures, adjacent segment degeneration. Procedure: The patient was identified in the preoperative suite using unique patient identifiers. Skin was marked consent was taken and all questions were answered. The patient was then brought back to the operative room and a timeout was performed. General endotracheal anesthesia was given. Intraoperative neuro monitoring leads were applied. The patient was carefully positioned supine on a regular OR table. A lateral view with a C-arm was done to identify the level and to define the incision. The anterior neck was then prepped and draped in the usual fashion. A final timeout was then performed. A transverse skin incision was taken to the left of midline. Subcutaneous tissue was then divided with Bovie. Platysma was identified and cut along the incision with scissors. The fascial interval between the sternocleidomastoid and the larynx was developed. Omohyoid was identified and retracted. The esophagus with the larynx was retracted medially to reach the prevertebral fascia. Marker x-ray was performed with bent spinal needle and disc space and levels were confirmed. Longus coli muscle was elevated on both sides at and above and below C3-6 discs. Self-retaining retractors were then placed. A long handle knife was then used to perform annulotomy at C3-4. Disc fragments were removed with the pituitary. Melrose pins were placed in C3 and C4 for disc distraction. Curettes and bur was utilized to remove cartilage from the endplates. Discectomy was performed laterally up to the uncovertebral joints. Posterior osteophytes were thinned down with the bur and adequate decompression in the central and foraminal areas were performed and PLL was thinned out. Once the disc space was prepared, trials of various sizes were utilized. Thorough irrigation was given. 7 mm LASR cortical cancellous allograft bone large footprint was then fashioned in such a way that concavities were burred out inferiorly and superiorly and half cc of DBX (demineralized bone matrix) was squeezed into the cancellous portion. The graft was then inserted into the C3-4 disc space. The retractors were then repositioned and the procedure was repeated for C4-5 and C5-6 discs with complete discectomy. Graft sizes were 7 mm at with large footprint at C4-5, and 6 mm with large footprint at C5-6. The grafts were found to be in good apposition with good pullout strength. A 60 mm Medtronic Farlington Elite plate was then fixed to C3-6 with 16 mm screws. A lateral x-ray was then taken to check the length of the screws. Both AP and lateral x-rays showed good positioning of plate and screws. The locking mechanism over the screw heads was then turned. Thorough irrigation was again given. Hemostasis was achieved. A [place] drain was then inserted. Closure was done with 3-0 Vicryl for the platysma and subcutaneous tissue layers and 4-0 Monocryl for the skin. Closure was done around the drain. Steri-Strips were applied and dressing was done with 4 x 4 gauze and Tegaderm. A cervical collar was then applied. The patient was then woken up from anesthesia extubated and taken to PACU in stable condition. From here, the patient will be transitioned to the floor. Intraoperative neuro monitoring was performed throughout this procedure. Motor evoked potentials were run periodically. All potentials remained at baseline throughout the procedure. I was present for the entire surgery and performed the surgery myself. Sewage Plant Supervisor Claudia Kelley PA-C. My physician planning assistant was a vital part of this case. They were important in appropriate retraction during the case, and protection of soft tissues during the procedure. Their intimate knowledge of the case and my steps aided in safe and expedient completion of the procedure as well as appropriate position of the patient during the surgery. They were also vital in assisting with closure under my direct supervision. Surgical Findings: See operative note Complications Complications: No
--- NOTE | 2025-04-10 10:55 | POSTOPAN2_ITS ---
Anesthesia Postop Eval I Sum Postop Eval Completion status Anesthesia document: Postop Eval 1 completed: Yes Anesthesia Postop Eval I Summary Anesthesia Postop Eval I Summary: Anesthesia Postop Eval I: Assessment Summary Airway patent Yes 04/10/25 10:29 [email or web address] [email or web address] Spontaneous unlabored Yes 04/10/25 10:29 MANAGER [email or web address] respirations Mental status nausea No 04/10/25 10:29 MANAGER [email or web address] Vomiting No 04/10/25 10:29 MANAGER [email or web address] Anesthesia Postop Eval I: Fluid Summary Crystalloid volume administer 1,500 04/10/25 10:29 MANAGER [email or web address] (ml) Colloids volume administered ( ml) Blood Product volume administered (ml) Total IV fluid infused 1,500 04/10/25 10:29 MANAGER [email or web address] Anesthesia Postop Eval I: Summary Notes Anesthesia Complication No 04/10/25 10:29 MANAGER [email or web address] Anesthesia Complication Comment: Post-operative progress note Anesthesia: Postop Eval II Evaluation Mental status: Awake Pain Level: 0 nausea: No Vomiting: No Complications Anesthesia Complication: No
--- NOTE | 2025-04-10 10:55 | PCM.POSTANE2 ---
Anesthesia Postop Eval I Sum Postop Eval Completion status Anesthesia document: Postop Eval 1 completed: Yes Anesthesia Postop Eval I Summary Anesthesia Postop Eval I Summary: Anesthesia Postop Eval I: Assessment Summary Airway patent Yes 04/10/25 10:29 PIPELINE [email or web address] Spontaneous unlabored Yes 04/10/25 10:29 PIPELINE [email or web address].[email or web address] respirations Mental status nausea No 04/10/25 10:29 PIPELINE [email or web address].[email or web address] Vomiting No 04/10/25 10:29 PIPELINE [email or web address].[email or web address] Anesthesia Postop Eval I: Fluid Summary Crystalloid volume administer 1,500 04/10/25 10:29 PIPELINE [email or web address].[email or web address] (ml) Colloids volume administered ( ml) Blood Product volume administered (ml) Total IV fluid infused 1,500 04/10/25 10:29 PIPELINE [email or web address] Anesthesia Postop Eval I: Summary Notes Anesthesia Complication No 04/10/25 10:29 PIPELINE [email or web address].[email or web address] Anesthesia Complication Comment: Post-operative progress note Anesthesia: Postop Eval II Evaluation Mental status: Awake Pain Level: 0 nausea: No Vomiting: No Complications Anesthesia Complication: No
[2025-04-10] MEDS: dexAMETHasone 4 MG/ML Vial IV ×3 (12:36→23:38)
[2025-04-10] MEDS: 0.9% Saline Lock 10 ML Syringe IV ×4 (12:37→23:38)
--- NOTE | 2025-04-10 13:35 | PN_ITS ---
Subjective Subjective Patient is a 64-year-old female with past medical history as outlined was admitted to the service of spine surgery for cervical disc fusion. She had been seeing spine surgery for neck pain and bilateral upper extremity radiation with weakness and worsening dexterity and imaging has shown C3-C4 and C4-C5 spondylolisthesis as well as C3-C6 disc degeneration with stenosis with spinal cord indentation. She had a prolonged course of nonsurgical treatment but her symptoms did not improve and so she came in for surgical treatment. She had C3- C6 anterior cervical disc fusion on 04/10/2025. Hospitalist team was consulted for medical management. Patient was seen after the surgery. She felt well and had a complete pain was well-controlled. Review of systems otherwise negative. She has remained hemodynamically stable. Objective Data Objective Data Vital Signs: Vital Signs Temp Pulse Resp BP Pulse Ox O2 Del Method O2 Flow Rate 97.5 F L 80 16 128/71 H 98 Simple Mask 4 04/10/25 12:20 04/10/25 12:20 04/10/25 12:20 04/10/25 12:20 04/10/25 12:20 04/10/25 12:20 04/10/25 12:20 Oxygen Flow Rate (L/min) 4 Oxygen Delivery Method Simple Mask Weight: 147 lb 11.355 oz Body Mass Index (BMI) 23.8 Intake & Output: Intake and Output for Last 24 Hours 04/08/25 04/09/25 04/10/25 23:59 23:59 23:59 Intake Total 1000 / 1000 Balance 1000 / 1000 Lab / Micro Data 04/02/25 12:18 04/02/25 12:18 Micro: Microbiology 04/02/25 12:18 Swab (Method) Nasal Screen MRSA/MSSA - Final Physical Exam Const alert, oriented x3 and no apparent distress General Appearance: cooperative HEENT normocephalic, head/scalp atraumatic, moist oral mucous membranes and oropharynx normal Eyes PERRL and EOMs intact bilaterally Neck no lymphadenopathy and supple Neck Narrative: intact cervical collar. Lymph Lymphatic: no lymphedema noted Resp normal respiratory effort, normal air movement and clear to auscultation bilaterally Cardio regular rate, regular rhythm, S1 normal heart sound, S2 normal heart sound and no murmurs GI normal to inspection, nondistended, normoactive bowel sounds, soft to palpation, non-tender and non-distended Extremity normal capillary refill, no clubbing, cyanosis or edema and no calf tenderness General Extremity: no tenderness to palpation of joints or extremities Skin General Skin Exam: no breakdown Neuro no focal motor deficits and no sensory deficits noted Motor Exam: general weakness Psych thought process normal and cooperative Appearance: appropriate Assessment & Plan Assessment/Plan (1) Cervical radiculopathy: (2) Spondylolisthesis of cervical region: PLAN: Plan # Cervical stenosis with radiculopathy * S/p cervical anterior cervical disc fusion of C4-C6 * Management as per spine surgery. * Incentive spirometry. Breathing treatments bronchodilators. PT OT on board. Fall precautions. Pain management as per spine surgery. * DVT prophylaxis: SCDs. As per spine surgery. Thank you for the courtesy of the consult. Hospitalist service will continue to follow with you. Charges/Coding Visit Charges Inpatient E&M: 99188 Subs Hosp L2
[2025-04-10] MEDS: Morphine 2 MG/ML Syringe IV ×2 (14:16→23:38)
[2025-04-10] MEDS: Ondansetron 4 MG/2 ML Vial IV (14:16)
[2025-04-10] MEDS: Methocarbamol 500 MG Tablet 1000 MG PO ×2 (16:05→23:39)
[2025-04-10] MEDS: HYDROcodone Bitartrate/Apap 5/325 Tablet PO ×2 (16:06→20:33)
[2025-04-10] MEDS: Ketorolac 15 MG/ML Vial IV (20:33)
[2025-04-11 04:15] VITALS: BP 144/72; PULSE 93; RESP 16; TEMP 37.2; O2SAT 94
[2025-04-11] MEDS: Ondansetron 4 MG/2 ML Vial IV (04:58)
[2025-04-11] MEDS: HYDROcodone Bitartrate/Apap 5/325 Tablet PO ×2 (04:58→09:04)
[2025-04-11] MEDS: dexAMETHasone 4 MG/ML Vial IV ×2 (04:59→12:06)
[2025-04-11] MEDS: Methocarbamol 500 MG Tablet 1000 MG PO ×2 (04:59→12:06)
--- NOTE | 2025-04-11 05:20 | RAD_ITS ---
PROCEDURE: CERV SPINE 2 OR 3 VIEWS 04/11/2025 REASON FOR EXAM: S/P CERVICAL FUSION TECHNIQUE: 2 views of the cervical spine. COMPARISON: Cervical spine radiographs on 01/10/2025 FINDINGS: Neck brace limits this evaluation. Postoperative changes from anterior cervical discectomy and fusion from C3 through C6. No immediate hardware complication. There is a surgical drain present at the prevertebral space. Lung apices are clear. RAD/Cerv Spine 2 or 3 Views IMPRESSION: Expected postoperative changes of the cervical spine. Reading Location: [id number]
[2025-04-11 06:43] LABS: Hematocrit 37.8 % (37-47); Hemoglobin 12.2 g/dL (12.0-15.0); Mean Corp Hgb Conc 32.3 g/dL (32-36); Mean Corpuscular Hgb 29.5 pg (27.0-32.0); Mean Corpuscular Volume 91.3 fL (81-99); Mean Platelet Vol. 9.7 fl (6.2-12.0); Platelet Count 353 K/mm3 (150-450); RBC Distribution Width CV 12.8 % (11.6-14.6); RBC Distribution Width SD 42.5 fl (35.1-43.9); Red Blood Count 4.14 M/mm3 (4.2-5.4); White Blood Count 12.1 K/mm3 (4.4-11.0)
[2025-04-11 07:21] LABS: Anion Gap 11 (5-15); BUN 16 mg/dL (4-19); BUN/Creat Ratio 17.3 RATIO (10-20); Calcium,Total 8.8 mg/dL (7.6-11.0); Carbon Dioxide 21.9 mmol/L (21.0-32.0); Chloride 105 mmol/L (98-108); Creatinine, Serum 0.94 mg/dL (0.70-1.20); EST Glomerular Filtration Rate 67 (>60); Estimated Creatinine Clearance 55.11 ml/min (50-250); Glucose 137 mg/dL (70-99); Potassium 4.8 mmol/L (3.3-5.1); Sodium Level 138 mmol/L (133-145)
[2025-04-11 08:50] VITALS: BP 146/64; PULSE 94; RESP 17; TEMP 36.6; O2SAT 100
[2025-04-11] MEDS: Senna/Docusate Sodium 1 Tablet 2 TABLET PO (09:04)
[2025-04-11] MEDS: Meloxicam 15 MG Tablet PO (09:04)
--- NOTE | 2025-04-11 10:46 | CASEMGMT ---
DELAROSA Attempted to complete DELAROSA with pt. Pt asked me to come back in an hour or two as she was unable to sleep throughout the night. YOHANA Hernandezt.
--- NOTE | 2025-04-11 11:35 | PCM.PROGNOTE ---
Subjective Subjective Patient seen and examined. She feels much better today and has no active complaints. She had an uneventful night. Pain is well-controlled. Review of systems otherwise negative. She has remained hemodynamically stable. Objective Data Objective Data Vital Signs: Vital Signs Temp Pulse Resp BP Pulse Ox O2 Del Method O2 Flow Rate 97.8 F 94 17 146/64 H 100 Room Air 2 04/11/25 08:50 04/11/25 08:50 04/11/25 08:50 04/11/25 08:50 04/11/25 08:50 04/11/25 08:50 04/10/25 15:57 Oxygen Flow Rate (L/min) 2 Oxygen Delivery Method Room Air Weight: 147 lb 11.355 oz Body Mass Index (BMI) 23.8 Intake & Output: Intake and Output for Last 24 Hours 04/09/25 04/10/25 04/11/25 23:59 23:59 23:59 Intake Total 1313.75 / 1313.75 600 / 600 Balance 1313.75 / 1313.75 600 / 600 Lab / Micro Data 04/11/25 05:43 04/11/25 05:43 Labs: Laboratory Results - last 24 hr 04/11/25 05:43: WBC 12.1 H, RBC 4.14 L, Hgb 12.2, Hct 37.8, MCV 91.3, MCH 29.5, MCHC 32.3, RDW Std Deviation 42.5, RDW Coeff of Latrice 12.8, Plt Count 353, MPV 9.7, Sodium 138, Potassium 4.8, Chloride 105, Carbon Dioxide 21.9, Anion Gap 11, BUN 16, Creatinine 0.94, Estim Creat Clear Calc 55.11, Est GFR (MDRD) Non-Af 67, BUN/Creatinine Ratio 17.3, Glucose 137 H, Calcium 8.8 Micro: Microbiology 04/02/25 12:18 Swab (Method) Nasal Screen MRSA/MSSA - Final Radiography Diagnostic Testing: Radiology Impression Cervical Spine X-Ray 04/10/25 07:24 IMPRESSION: As per findings. Reading Location: [facility] Cervical Spine X-Ray 04/11/25 05:20 IMPRESSION: Expected postoperative changes of the cervical spine. Reading Location: [facility] Physical Exam Const alert, oriented x3 and no apparent distress General Appearance: cooperative and well developed HEENT normocephalic, head/scalp atraumatic, moist oral mucous membranes and oropharynx normal Eyes PERRL and EOMs intact bilaterally Neck no lymphadenopathy and supple Neck Narrative: intact cervical collar. Lymph Lymphatic: no lymphedema noted Resp normal respiratory effort, normal air movement and clear to auscultation bilaterally Cardio regular rate, regular rhythm, S1 normal heart sound, S2 normal heart sound and no murmurs GI normal to inspection, nondistended, normoactive bowel sounds, soft to palpation, non-tender and non-distended Extremity normal capillary refill, no clubbing, cyanosis or edema and no calf tenderness General Extremity: no tenderness to palpation of joints or extremities Skin General Skin Exam: no breakdown Neuro no focal motor deficits and no sensory deficits noted Motor Exam: general weakness Psych thought process normal and cooperative Appearance: appropriate Assessment & Plan Assessment/Plan (1) Cervical radiculopathy: (2) Spondylolisthesis of cervical region: PLAN: Plan # Cervical stenosis with radiculopathy S/p cervical anterior cervical disc fusion of C4-C6 Management as per spine surgery. today is POD 1 Incentive spirometry. Breathing treatments bronchodilators. PT OT on board. Fall precautions. Pain management as per spine surgery. DVT prophylaxis: SCDs. As per spine surgery. Patient is stable for discharge from hospital standpoint. Charges/Coding Visit Charges Inpatient E&M: 63950 Subs Hosp L2
[2025-04-11 12:03] VITALS: BP 127/82; PULSE 88; RESP 17; TEMP 36.8; O2SAT 98
[2025-04-11] MEDS: DiphenhydrAMINE 50 MG/ML Syringe 25 MG IV (12:05)
[2025-04-11] MEDS: 0.9% Saline Lock 10 ML Syringe IV (12:06)
--- NOTE | 2025-04-11 12:31 | CASEMGMT ---
DELAROSA Met with patient to complete DELAROSA form. DELAROSA form and its content were verbally explained and patient's questions were answered to the best of my ability.? Patient voiced understanding and signed DELAROSA form.? Patient provided a copy of signed DELAROSA form and original placed in patient's chart.? Patient had no further questions. Tamica De La Fuente, Discharge Planning Asst
--- NOTE | 2025-04-11 12:45 | CASEMGMT ---
RN?CM?RELIGIOUS EDUCATION TEACHER?CM?to room to meet with patient for initial transition planning/care coordination?assessment.?RN?CM?introduced self and role at [facility].? Pt voices understanding and consents to?assessment?at this time.? Pt sitting up in chair in room in no distress at this time.? Pt is A/O at this time and answers all questions appropriately.?? Care providers, pharmacy, and demographics verified/updated at this time. PCP: Nupur Zelaya Specialists: Dr Macias-lazara Preferred Pharmacy: [facility] @ [address]. Insurance: [employer] Prescription Benefit:?yes LNOK: , [place] Living Arrangements: Lives w/ in one-story home w/basement w/3 steps to enter. Pt states she does not have to go to the basement. Therapy worked w/her w/stairs today she voices no concerns w/getting in/out of her her home. Independent. had a stroke in the past and pt helps to care for him. Transportation:? does not drive. Sister will take pt home. Sister or friends can help w/transport to appts until pt can drive. DME: ?Pt did not use any DME prior to admission. She states she will be getting a CPAP soon. She will dc home w/C-Collar. Pt wishes to return home and states has no concerns with going home at time of discharge. Pt is aware of importance of walking and to f/u with Dr Macias in 2 weeks and further OP therapy can be discussed at that time, if needed. Pt states she already has a 2-wk f/u appt w/Dr Macias on 04/25 @ 0930 and this was added to pt's dc plan. Questions answered re: MyChart. Pt voices no further concerns/needs at this time.? PLAN:??Home Demarcus BSN?RN?CM
--- NOTE | 2025-04-11 16:41 | PCM.PN.ORT ---
Subjective Subjective Postop day day 1 C3-6 fusion. Patient is doing well postoperatively with minimal pain. The patient has walked with therapy who is cleared her for home discharge. Patient denies any significant dysphagia. The patient was seen with Dr. Macias. Objective Data Objective Data Vital Signs: Vital Signs Temp Pulse Resp BP Pulse Ox O2 Del Method O2 Flow Rate 98.2 F 88 17 127/82 H 98 Room Air 2 04/11/25 12:03 04/11/25 12:03 04/11/25 12:03 04/11/25 12:03 04/11/25 12:03 04/11/25 12:03 04/10/25 15:57 Oxygen Flow Rate (L/min) 2 Oxygen Delivery Method Room Air Weight: 147 lb 11.355 oz Body Mass Index (BMI) 23.8 Intake & Output: Intake and Output for Last 24 Hours 04/09/25 04/10/25 04/11/25 23:59 23:59 23:59 Intake Total 1313.75 / 1313.75 600 / 600 Balance 1313.75 / 1313.75 600 / 600 Lab / Micro Data 04/11/25 05:43 04/11/25 05:43 Labs: Laboratory Results - last 24 hr 04/11/25 05:43: WBC 12.1 H, RBC 4.14 L, Hgb 12.2, Hct 37.8, MCV 91.3, MCH 29.5, MCHC 32.3, RDW Std Deviation 42.5, RDW Coeff of Latrice 12.8, Plt Count 353, MPV 9.7, Sodium 138, Potassium 4.8, Chloride 105, Carbon Dioxide 21.9, Anion Gap 11, BUN 16, Creatinine 0.94, Estim Creat Clear Calc 55.11, Est GFR (MDRD) Non-Af 67, BUN/Creatinine Ratio 17.3, Glucose 137 H, Calcium 8.8 Micro: Microbiology 04/02/25 12:18 Swab (Method) Nasal Screen MRSA/MSSA - Final Radiography Diagnostic Testing: Radiology Impression Cervical Spine X-Ray 04/10/25 07:24 IMPRESSION: As per findings. Reading Location: [id number] Cervical Spine X-Ray 04/11/25 05:20 IMPRESSION: Expected postoperative changes of the cervical spine. Reading Location: [id number] Physical Exam Narrative Neurological examination of the upper extremity shows 5X5 power. Normal sensation across all dermatomes. Drain and saturated gauze and Tegaderm was removed. Reapplied new gauze and Tegaderm over the incision. Const alert, oriented x3 and no apparent distress Assessment & Plan Assessment/Plan (1) Status post cervical spinal fusion: PLAN: Plan Postop day 1 C3-6 fusion. Patient is doing well postoperatively with minimal pain. Obtained and reviewed x-rays today which show hardware and bone graft in good position. Reviewed restrictions of no bending, lifting, twisting for 3 months postoperatively. Patient has walked with PT/OT who is cleared her for home discharge. Reviewed and educated on the use of the incentive spirometer. Reviewed and educated on the proper wear of the cervical collar. Follow-up in 2 weeks in the clinic. Patient is in agreement.
== END 2025-04-11 13:28 | disposition home or self-care (01) ==
LOC: SDC 11:25 → MS3 11:25
PROVIDERS: Anesthesiology; Student in an Organized Health Care Education/Training Program; Admitting Provider Orthopaedic Surgery Orthopaedic Surgery of the Spine; PCP Family Medicine; Referring Provider Orthopaedic Surgery Orthopaedic Surgery of the Spine; Visit Provider Orthopaedic Surgery Orthopaedic Surgery of the Spine
PROC: (CPT 22551; principal; 2025-04-10 07:00)
DX: M43.12 Spondylolisthesis, cervical region (principal); M50.01 Cervical disc disorder with myelopathy, high cervical region; M48.02 Spinal stenosis, cervical region; Z87.891 Personal history of nicotine dependence; M50.11 Cervical disc disorder with radiculopathy, high cervical region; Z79.899 Other long term (current) drug therapy; M40.202 Unspecified kyphosis, cervical region; G25.81 Restless legs syndrome
CPT/HCPCS: 22551; 22552 ×2; 20931; 00670; 22845; 36415; 72040; 76000; 80048; 83735; 85025; 85027; 86703; 86706; 86708; 86803; 86850; 86900; 86901; 87081; 93005; 94668; 96365; 96366; 96375; 96376; 97161; 99221; A4648; C1713; A4216; G0378; J2405; J3475